=== PATIENT | female | born 1980 | race Caucasian/White ===

== ENCOUNTER 2017-01-30 00:31 | Emergency (ER) | payer BC ==
[2017-01-30 00:44] VITALS: BP 128/81
[2017-01-30] MEDS ORDERED: Bacitracin Oint 1 GM U/D Packet TOP ONE (01:16)
[2017-01-30] MEDS ORDERED: Lidocaine 1% with EPINEPHrine 1:100,000 50 ML MDV SUBCUT STA (01:16)
--- NOTE | 2017-01-30 01:52 | EDM.PDOC ---
ED HPI Skin/Rash - General Chief Complaint: Laceration Stated Complaint: [facility] Time Seen by Provider: 01/30/17 01:15 Source: Reports: Patient, RN notes reviewed History Limitations: Reports: No limitations - History of Present Illness INITIAL COMMENTS - FREE TEXT/NARRATIVE: 36-year-old female presents emergency department today via EMS services she had fallen indication accidentally developed this laceration on her chin no loss of consciousness no other complaints - Related Data Allergies Allergy/AdvReac Type Severity Reaction Status Date / Time Sulfa (Sulfonamide Allergy Hives Verified 01/30/17 00:55 Antibiotics) Home Meds: Ambulatory Orders Medication Instructions Recorded Confirmed ALPRAZolam [Alprazolam] 0.5 mg PO BID PRN 09/01/15 01/30/17 Atenolol 25 mg PO BID 03/13/16 01/30/17 Acetaminophen/Caffeine [Excedrin 2 tab PO QID PRN 04/23/16 01/30/17 Tension Headache] Ibuprofen 600 mg PO ASDIRECTED PRN 10/27/16 01/30/17 Levonorgestrel [Mirena] 1 insert IU ASDIRECTED 10/27/16 01/30/17 clonazePAM [Clonazepam] 1 mg PO BID 10/27/16 01/30/17 Past Medical History HEENT History: Reports: Other (see below) Other HEENT History: Pseudotumor cerebri. MRI completed 01/2016 with negative results. 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: , Other (see below) Other OB/BYN History: Right ovarian cyst with removal, IUD Neurological History: Reports: Migraines Other Neuro History: pseudo tumor Psychiatric History: Reports: Anxiety, Depression, Suicide attempt, Suicidal ideation - Infectious Disease History Infectious Disease History: Reports: Chicken pox - Past Surgical History Cardiovascular Surgical History: Reports: Cardiac Ablation GI Surgical History: Reports: EGD Social & Family History - Family History Cardiac: Reports: Hypertension, Syncope Psychiatric: Reports: Anxiety, Depression Endocrine/Metabolic: Reports: Diabetes, type II Hematologic: Reports: Bleeding disorder - Tobacco Use Smoking Status *Q: Current Every Day Smoker Years of Tobacco use: 20 Packs/Tins Daily: 0.2 Used Tobacco, but Quit: No Second Hand Smoke Exposure: Yes - Caffeine Use Caffeine Use: Reports: None - Alcohol Use Days Per Week of Alcohol Use: 1 Number of Drinks Per Day: 2 Total Drinks Per Week: 2 - Recreational Drug Use Recreational Drug Use: No - Living Situation & Occupation Living situation: Reports: Occupation: employed (Lives with 2 children ages 16 and 14 years. Ex- has custody on weekends. Employed full-time by [employer].) ED ROS GENERAL - Review of Systems Review Of Systems: See Below Constitutional: Reports: no symptoms Skin: Reports: wound ED EXAM, SKIN/RASH Exam: See Below Exam Limited By: No limitations General Appearance: alert, WD/WN, no apparent distress Eye Exam: bilateral eye: normal inspection Ears: normal external exam Nose: normal inspection, normal mucosa, no blood Throat/Mouth: Normal inspection, Normal lips, Normal teeth, Normal gums, Normal oropharynx, Normal voice, No airway compromise Head: normocephalic, facial tenderness, other (2.5 cm laceration on the chin) Neck: normal inspection, supple, non-tender, full range of motion Respiratory/Chest: no respiratory distress ED SKIN PROCEDURES - Laceration/Wound Repair Face Lac/wound length in cm: 2.5 Appearance: subcutaneous, muscle Distal NVT: neuro & vascular intact, no tendon injury Anesthetic type: local Local anesthesia - Lidocaine (Xylocaine): 1% with epi Local anesthetic volume: 2cc Skin prep: saline Saline irrigation (cc's): 30 Exploration/Debridement/Repair: wound explored, in a bloodless field, explored to base Closed with: sutures Suture size: other (5-0) # of sutures: 4 Suture type: nylon, interrupted, simple Suture size: other (5-0) # of sutures: 3 Repaired with: vicryl Course - Vital Signs Last Recorded V/S: Last Vital Signs Temp 95.2 F L 01/30/17 00:42 Pulse 91 01/30/17 00:42 Resp 18 01/30/17 00:42 BP 128/81 01/30/17 00:42 Pulse Ox 96 01/30/17 00:42 - Orders/Labs/Meds Meds: Medications Discontinued Medications Generic Name Dose Route Start Last Admin Trade Name Freq PRN Reason Stop Dose Admin Bacitracin 1 dose 01/30/17 01:16 01/30/17 01:31 Bacitracin Oint 1 Gm TOP 01/30/17 01:17 1 dose ONETIME ONE Administration Lidocaine/Epinephrine 20 ml 01/30/17 01:16 01/30/17 01:31 Xylocaine 1% With Epinephrine 1:100,000 SUBCUT 01/30/17 01:17 20 ml NOW STA Administration Departure - Departure Time of Disposition: 01:51 Disposition: Home, Self-Care 01 Condition: good Clinical Impression: Laceration of chin Qualifiers: Encounter type: initial encounter Qualified Code(s): S01.81XA - Laceration without foreign body of other part of head, initial encounter Forms: ED Department Discharge Additional Instructions: Suture removal in 3-4 days, follow wound care instruction sheet, call return to the emergency department with worsening of symptoms - Assessment/Plan Plan: Assessment Acuity = acute Site and laterality = 2.5 cm laceration chin Etiology = secondary to fall Manifestations = none Location of injury = home Lab values = none Plan Follow wound care instruction sheet, suture removal in 3-4 days Patient was in agreement with the plan all questions were answered, they were instructed to return to the emergency department or call for worsening symptoms. This note was dictated using [employer] voice recognition software please call with any questions.
== END 2017-01-30 02:28 | disposition home or self-care (01) ==
LOC: JP.ED 00:31
DX: S01.81XA Laceration without foreign body of other part of head, initial encounter (principal); E78.00 Pure hypercholesterolemia, unspecified; I10 Essential (primary) hypertension; F41.9 Anxiety disorder, unspecified; F32.9 Major depressive disorder, single episode, unspecified; F17.210 Nicotine dependence, cigarettes, uncomplicated; Z88.2 Allergy status to sulfonamides; W19.XXXA Unspecified fall, initial encounter
CPT/HCPCS: 12011; 99283-25

== ENCOUNTER 2017-03-03 17:18 | Emergency (ER) | payer BC ==
[2017-03-03] MEDS ORDERED: LORazepam 2 MG/ML MDV IVPUSH ONE (17:51)
[2017-03-03] MEDS ORDERED: Sodium Chloride 0.9% 10 ML Syringe FLUSH PRN (17:51)
[2017-03-03] MEDS ORDERED: Ketorolac 30 MG/ML SDV IVPUSH ONE (19:23)
[2017-03-03 19:28] VITALS: BP 149/99
--- NOTE | 2017-03-03 19:33 | EDM.PDOC ---
ED HPI GENERAL MEDICAL PROBLEM - General Chief Complaint: Respiratory Problem Stated Complaint: chest pain sob arm hurts cant feel legs Time Seen by Provider: 03/03/17 18:00 Source of Information: Reports: Patient History Limitations: Reports: No Limitations - History of Present Illness INITIAL COMMENTS - FREE TEXT/NARRATIVE: Radha is a 36 year old female who presents to the ED today with c/o of a panic attack. Patient reports that prior to arrival here her legs gave out on her and she struck her lip. Patient denies any loss of consciousness. Patient reports she used to be on Klonopin for her anxiety but has not been on anything recently. Patient has never been on an anti-depressant for her anxiety. Patient reports that she cannot move her legs but did ambulate to her ED room from triage. Patient denies any current chest pain, patient does report that "it feels like I'm dying". Bilateral Leg Pain Score (Numeric/FACES): 10 - Related Data Allergies Allergy/AdvReac Type Severity Reaction Status Date / Time Sulfa (Sulfonamide Allergy Hives Verified 03/03/17 17:32 Antibiotics) Home Meds: Home Meds ALPRAZolam [Alprazolam] 0.5 mg PO BID PRN 09/01/15 [History] Atenolol 25 mg PO BID 03/13/16 [History] Acetaminophen/Caffeine [Excedrin Tension Headache] 2 tab PO QID PRN 04/23/16 [ History] Ibuprofen 600 mg PO ASDIRECTED PRN 10/27/16 [History] Levonorgestrel [Mirena] 1 insert IU ASDIRECTED 10/27/16 [History] clonazePAM [Clonazepam] 1 mg PO BID 10/27/16 [History] Past Medical History HEENT History: Reports: Other (See Below) Other HEENT History: Pseudotumor cerebri. MRI completed 01/2016 with negative results. 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: Right ovarian cyst with removal, IUD Neurological History: Reports: Migraines Other Neuro History: pseudo tumor Psychiatric History: Reports: Anxiety, Depression, Suicide Attempt, Suicidal Ideation - Infectious Disease History Infectious Disease History: Reports: Chicken Pox - Past Surgical History Cardiovascular Surgical History: Reports: Cardiac Ablation GI Surgical History: Reports: EGD Social & Family History - Family History Cardiac: Reports: Hypertension, Syncope Psychiatric: Reports: Anxiety, Depression Endocrine/Metabolic: Reports: Diabetes, type II Hematologic: Reports: Bleeding Disorder - Tobacco Use Smoking Status *Q: Current Some Day Smoker Years of Tobacco use: 10 Packs/Tins Daily: 0.1 Used Tobacco, but Quit: No Second Hand Smoke Exposure: Yes - Caffeine Use Caffeine Use: Reports: None - Alcohol Use Days Per Week of Alcohol Use: 1 Number of Drinks Per Day: 3 Total Drinks Per Week: 3 - Recreational Drug Use Recreational Drug Use: No - Living Situation & Occupation Living situation: Reports: Occupation: Employed ED ROS GENERAL - Review of Systems Review Of Systems: See Below Constitutional: Reports: No Symptoms HEENT: Reports: No Symptoms Respiratory: Reports: Shortness of Breath Cardiovascular: Reports: No Symptoms Endocrine: Reports: No Symptoms GI/Abdominal: Reports: No Symptoms : Reports: No Symptoms Musculoskeletal: Reports: Other (bilateral leg pain) Skin: Reports: Other (contusion to inner lower lip) Neurological: Reports: Numbness, Tingling Psychiatric: Reports: Anxiety Hematologic/Lymphatic: Reports: No Symptoms Immunologic: Reports: No Symptoms ED EXAM, GENERAL - Physical Exam Exam: See Below Exam Limited By: No Limitations General Appearance: Alert, WD/WN, Anxious Throat/Mouth: Normal Oropharynx, Other (mild swelling and ecchymosis to inner lower lip, no laceration) Neck: Normal Inspection, Supple, Non-Tender Respiratory/Chest: No Respiratory Distress, Lungs Clear, Normal Breath Sounds Cardiovascular: Regular Rate, Rhythm, No Murmur GI/Abdominal: Normal Bowel Sounds, Soft, Non-Tender Extremities: Normal Inspection, Normal Range of Motion, Other (pain with touch, DTR's and movement in tact sensation and cap refill intact bilaterally) Neurological: Alert, Oriented, CN II-XII Intact, Normal Cognition, Normal Gait, Normal Reflexes, No Motor/Sensory Deficits Psychiatric: Anxious Skin Exam: Warm, Dry Lymphatic: No Adenopathy Course - Vital Signs Text/Narrative:: Radha is a 36 year old female who presents to the ED today with c/o panic attack. Patient reports numbness/tingling in her legs, legs gave out and patient struck her lower lip against her teeth. Patient did no sustain any LOC. Patient on exam here is quite anxious, she has a normal exam otherwise. She does have contusion/swelling to inner lower lip. DT was 2 years ago. Patient was given IV Ativan with vast improvement in her symptoms, patient was given Toradol for leg/lip pain with improvement as well, heart rate normalized. I feel that patient would clearly benefit from an anti-depressant for her anxiety. I would like her to see her PCP this week to discuss this. Patient can take Ibuprofen/Tylenol for pain as needed. Reasons to return to the ED were discussed in detail and patient was discharged in stable condition with family driving. Last Recorded V/S: Last Vital Signs Temp 37.3 C 03/03/17 17:28 Pulse 89 03/03/17 19:08 Resp 32 H 03/03/17 17:28 BP 149/99 H 03/03/17 19:08 Pulse Ox 97 03/03/17 19:08 - Orders/Labs/Meds Orders: Active Orders 24 hr Category Date Time Status Peripheral IV Care [RC] . DIRECTED Care 03/03/17 17:51 Active Peripheral IV Insertion Adult [OM.PC] Routine Oth 03/03/17 17:51 Ordered Labs: Laboratory Tests 03/03/17 03/03/17 Range/Units 18:02 18:02 WBC 9.3 (4.5-11.0) K/uL RBC 4.34 (3.30-5.50) M/uL Hgb 15.3 H D (12.0-15.0) g/dL Hct 43.7 (36.0-48.0) % MCV 101 H (80-98) fL MCH 35 H (27-31) pg MCHC 35 (32-36) % Plt Count 275 (150-400) K/uL Neut % (Auto) 73 H (36-66) % Lymph % (Auto) 14 L (24-44) % [place] % (Auto) 11 H (2-6) % Eos % (Auto) 1 L (2-4) % Baso % (Auto) 0 (0-1) % Sodium 140 (140-148) mmol/L Potassium 3.3 L (3.6-5.2) mmol/L Chloride 104 (100-108) mmol/L Carbon Dioxide 27 (21-32) mmol/L Anion Gap 12.3 (5.0-14.0) mmol/L BUN 1 L D (7-18) mg/dL Creatinine 0.9 (0.6-1.0) mg/dL Est Cr Clr Drug Dosing 67.69 mL/min Estimated GFR (MDRD) > 60 (>60) Glucose 113 H (74-106) mg/dL Calcium 8.2 L (8.5-10.1) mg/dL Total Bilirubin 0.4 (0.2-1.0) mg/dL AST 62 H D (15-37) U/L ALT 47 D (12-78) U/L Alkaline Phosphatase 113 (46-116) U/L Total Protein 6.7 (6.4-8.2) g/dL Albumin 2.9 L (3.4-5.0) g/dL Globulin 3.8 H (2.3-3.5) g/dL Albumin/Globulin Ratio 0.8 L (1.2-2.2) Meds: Medications Discontinued Medications Generic Name Dose Route Start Last Admin Trade Name Freq PRN Reason Stop Dose Admin Ketorolac Tromethamine 30 mg 03/03/17 19:23 03/03/17 19:33 Toradol IVPUSH 03/03/17 19:24 30 mg ONETIME ONE Administration Lorazepam 1 mg 03/03/17 17:51 03/03/17 18:06 Ativan IVPUSH 03/03/17 17:52 1 mg ONETIME ONE Administration Sodium Chloride 10 ml 03/03/17 17:51 03/03/17 18:05 Saline Flush FLUSH 10 ml ASDIRECTED PRN Administration Keep Vein Open Departure - Departure Time of Disposition: 20:00 Disposition: Home, Self-Care 01 Condition: good Clinical Impression: Anxiety Contusion, lip Qualifiers: Encounter type: initial encounter Qualified Code(s): S00.531A - Contusion of lip, initial encounter - Discharge Information Instructions: Panic Attacks Referrals: PCP,None [Primary Care Provider] - Forms: ED Department Discharge Additional Instructions: Use Ibuprofen and Tylenol for pain/tiesha bruising, ice as needed. See primary care doctor this week to discuss anxiety please. - My Orders Last 24 Hours: My Active Orders 03/03/17 17:51 Peripheral IV Care [RC] . DIRECTED Peripheral IV Insertion Adult [OM.PC] Routine - Assessment/Plan Last 24 Hours: My Active Orders 03/03/17 17:51 Peripheral IV Care [RC] . DIRECTED Peripheral IV Insertion Adult [OM.PC] Routine
== END 2017-03-03 19:52 | disposition home or self-care (01) ==
LOC: JP.ED 17:18
DX: F41.9 Anxiety disorder, unspecified (principal); S00.531A Contusion of lip, initial encounter; I10 Essential (primary) hypertension; F32.9 Major depressive disorder, single episode, unspecified; F17.210 Nicotine dependence, cigarettes, uncomplicated; Z88.2 Allergy status to sulfonamides; Z79.899 Other long term (current) drug therapy; Z98.890 Other specified postprocedural states
CPT/HCPCS: 36415; 80053; 85025; 96374; 96375; 99284; J1885; J2060; J7050

== ENCOUNTER 2017-03-28 05:06 | Emergency (ER) | payer BC ==
[2017-03-28 05:17] VITALS: BP 155/96
--- NOTE | 2017-03-28 05:58 | EDM.PDOC ---
[id number] Chief Complaint: Drug or Alcohol Abuse Stated Complaint: EVAL Time Seen by Provider: 03/28/17 05:56 - Related Data Allergies Allergy/AdvReac Type Severity Reaction Status Date / Time Sulfa (Sulfonamide Allergy Hives Verified 03/28/17 05:32 Antibiotics) Home Meds: Home Meds ALPRAZolam [Alprazolam] 0.5 mg PO BID PRN 09/01/15 [History] Atenolol 25 mg PO BID 03/13/16 [History] Acetaminophen/Caffeine [Excedrin Tension Headache] 2 tab PO QID PRN 04/23/16 [ History] Ibuprofen 600 mg PO ASDIRECTED PRN 10/27/16 [History] Levonorgestrel [Mirena] 1 insert IU ASDIRECTED 10/27/16 [History] traZODone HCl [Trazodone HCl] 100 mg PO ASDIRECTED 03/28/17 [History] COURSE, BEHAVIORAL HEALTH COMP - Course Vital Signs: Last Vital Signs Temp 36.6 C 03/28/17 05:19 Pulse 97 03/28/17 05:19 Resp 18 03/28/17 05:19 BP 155/96 H 03/28/17 05:19 Pulse Ox 96 03/28/17 05:19 Orders, Labs, Meds: Laboratory Tests 03/28/17 03/28/17 03/28/17 Range/Units 05:59 06:10 06:10 WBC 6.3 (4.5-11.0) K/uL RBC 4.62 (3.30-5.50) M/uL Hgb 16.4 H (12.0-15.0) g/dL Hct 47.8 (36.0-48.0) % MCV 104 H (80-98) fL MCH 36 H (27-31) pg MCHC 34 (32-36) % Plt Count 305 (150-400) K/uL Neut % (Auto) 60 (36-66) % Lymph % (Auto) 26 (24-44) % [place] % (Auto) 12 H (2-6) % Eos % (Auto) 1 L (2-4) % Baso % (Auto) 1 (0-1) % Sodium 143 (140-148) mmol/L Potassium 3.8 (3.6-5.2) mmol/L Chloride 106 (100-108) mmol/L Carbon Dioxide 27 (21-32) mmol/L Anion Gap 10.3 (5.0-14.0) mmol/L BUN 4 L D (7-18) mg/dL Creatinine 0.8 (0.6-1.0) mg/dL Est Cr Clr Drug Dosing 76.15 mL/min Estimated GFR (MDRD) > 60 (>60) Glucose 99 (74-106) mg/dL Calcium 8.4 L (8.5-10.1) mg/dL Total Bilirubin 0.3 (0.2-1.0) mg/dL AST 71 H (15-37) U/L ALT 51 (12-78) U/L Alkaline Phosphatase 98 (46-116) U/L Total Protein 7.1 (6.4-8.2) g/dL Albumin 3.2 L (3.4-5.0) g/dL Globulin 3.9 H (2.3-3.5) g/dL Albumin/Globulin Ratio 0.8 L (1.2-2.2) Urine Color Yellow Urine Appearance Cloudy Urine pH 5.0 (4.5-8.0) Ur Specific Jansen 1.020 (1.008-1.030) Urine Protein Negative (NEGATIVE) mg/dL Urine Glucose (UA) Normal (NEGATIVE) mg/dL Urine Ketones Negative (NEGATIVE) mg/dL Urine Occult Blood Negative (NEGATIVE) Urine Nitrite Negative (NEGATIVE) Urine Bilirubin Negative (NEGATIVE) Urine Urobilinogen Normal (NORMAL) mg/dL Ur Leukocyte Esterase Small (NEGATIVE) Urine RBC 0-5 (0-5) Urine WBC 5-10 H (0-5) Ur Epithelial Cells Many Amorphous Sediment Few Urine Bacteria Many Urine Mucus Not seen Ethyl Alcohol mg/dL 03/28/17 Range/Units 06:10 WBC (4.5-11.0) K/uL RBC (3.30-5.50) M/uL Hgb (12.0-15.0) g/dL Hct (36.0-48.0) % MCV (80-98) fL MCH (27-31) pg MCHC (32-36) % Plt Count (150-400) K/uL Neut % (Auto) (36-66) % Lymph % (Auto) (24-44) % [place] % (Auto) (2-6) % Eos % (Auto) (2-4) % Baso % (Auto) (0-1) % Sodium (140-148) mmol/L Potassium (3.6-5.2) mmol/L Chloride (100-108) mmol/L Carbon Dioxide (21-32) mmol/L Anion Gap (5.0-14.0) mmol/L BUN (7-18) mg/dL Creatinine (0.6-1.0) mg/dL Est Cr Clr Drug Dosing mL/min Estimated GFR (MDRD) (>60) Glucose (74-106) mg/dL Calcium (8.5-10.1) mg/dL Total Bilirubin (0.2-1.0) mg/dL AST (15-37) U/L ALT (12-78) U/L Alkaline Phosphatase (46-116) U/L Total Protein (6.4-8.2) g/dL Albumin (3.4-5.0) g/dL Globulin (2.3-3.5) g/dL Albumin/Globulin Ratio (1.2-2.2) Urine Color Urine Appearance Urine pH (4.5-8.0) Ur Specific Jansen (1.008-1.030) Urine Protein (NEGATIVE) mg/dL Urine Glucose (UA) (NEGATIVE) mg/dL Urine Ketones (NEGATIVE) mg/dL Urine Occult Blood (NEGATIVE) Urine Nitrite (NEGATIVE) Urine Bilirubin (NEGATIVE) Urine Urobilinogen (NORMAL) mg/dL Ur Leukocyte Esterase (NEGATIVE) Urine RBC (0-5) Urine WBC (0-5) Ur Epithelial Cells Amorphous Sediment Urine Bacteria Urine Mucus Ethyl Alcohol 298 mg/dL Medications Discontinued Medications Generic Name Dose Route Start Last Admin Trade Name Freq PRN Reason Stop Dose Admin Sodium Chloride 1,000 mls @ 999 mls/hr 03/28/17 06:00 Normal Saline IV ASDIRECTED SANDRA Sodium Chloride 1,000 mls @ 999 mls/hr 03/28/17 06:15 03/28/17 06:20 Normal Saline IV 999 mls/hr ASDIRECTED SANDRA Administration Sodium Chloride 1,000 mls @ 999 mls/hr 03/28/17 07:15 03/28/17 07:24 Normal Saline IV 999 mls/hr ASDIRECTED SANDRA Administration Lorazepam 0.5 mg 03/28/17 06:58 Ativan IVPUSH 03/28/17 06:59 ONETIME ONE Lorazepam 1 mg 03/28/17 07:36 03/28/17 07:42 Ativan PO 03/28/17 07:37 1 mg ONETIME ONE Administration Re-Assessment/Re-Exam: Patient receiving IV fluids and treatment per Dr. Bell. Labs are reassuring other than alcohol level at 298. Patient still feeling anxious wants to go home, no feelings of self-harm. She was given 1 mg of by mouth Ativan to take one half tablet twice today after being home, if needed. She will return if worsening or concerns. Departure - Departure Time of Disposition: 07:45 Disposition: Home, Self-Care 01 Condition: Fair Clinical Impression: Anxiety, Alcohol abuse - Discharge Information Instructions: Panic Attacks, [id number], Alcohol Intoxication, [id number] Referrals: Paula Payne CNM [Primary Care Provider] - Forms: ED Department Discharge Care Plan Goals: Avoid alcohol in the future. Recheck with your regular physician if your anxiety persists. Return anytime if worsening or concerns. <Lola Zarate - Last Filed: 03/29/17 07:21> ED HPI GENERAL MEDICAL PROBLEM - General Source of Information: Reports: Patient History Limitations: Reports: No Limitations - History of Present Illness INITIAL COMMENTS - FREE TEXT/NARRATIVE: pt arrived intoxicated and feeling like her heart is racing. Onset: Other (pt has been drinking for about 3 days. ) Duration: Day(s): Associated Symptoms: Reports: Other (pt feels like his heart is racing. ) Past Medical History HEENT History: Reports: Other (See Below) Other HEENT History: Pseudotumor cerebri. MRI completed 01/2016 with negative results. 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 with removal, IUD Neurological History: Reports: Migraines Other Neuro History: pseudo tumor Psychiatric History: Reports: Anxiety, Depression, Suicide Attempt, Suicidal Ideation - Infectious Disease History Infectious Disease History: Reports: Chicken Pox - Past Surgical History Cardiovascular Surgical History: Reports: Cardiac Ablation GI Surgical History: Reports: EGD Social & Family History - Family History Cardiac: Reports: Hypertension, Syncope Psychiatric: Reports: Anxiety, Depression Endocrine/Metabolic: Reports: Diabetes, type II Hematologic: Reports: Bleeding Disorder - Tobacco Use Smoking Status *Q: Current Some Day Smoker Years of Tobacco use: 10 Packs/Tins Daily: 0 Used Tobacco, but Quit: No Second Hand Smoke Exposure: Yes - Caffeine Use Caffeine Use: Reports: Soda, Tea - Alcohol Use Days Per Week of Alcohol Use: 0 Number of Drinks Per Day: 3 Total Drinks Per Week: 0 - Recreational Drug Use Recreational Drug Use: No - Living Situation & Occupation Living situation: Reports: Occupation: Employed ED ROS GENERAL - Review of Systems Review Of Systems: See Below Constitutional: Reports: No Symptoms HEENT: Reports: No Symptoms Respiratory: Reports: No Symptoms Cardiovascular: Reports: Palpitations Endocrine: Reports: No Symptoms GI/Abdominal: Reports: No Symptoms : Reports: No Symptoms Musculoskeletal: Reports: No Symptoms Skin: Reports: No Symptoms ED EXAM, BEHAVIORAL HEALTH - Physical Exam Exam: See Below Text/Narrative:: pt arrived with feeling that her heart is racing. She has been drinking for 3 days. She feels nauseated. . Her whole body hurts. Exam Limited By: No Limitations General Appearance: Alert, Anxious Ears: Normal TMs Nose: Normal Inspection Throat/Mouth: Normal Inspection Head: Atraumatic Neck: Normal Inspection Respiratory/Chest: No Respiratory Distress Cardiovascular: Regular Rate, Rhythm, Tachycardia GI/Abdominal: Soft Rectal (Female) Exam: Deferred Back Exam: Normal Inspection Extremities: Normal Inspection Neurological: Alert, Normal Cognition, Oriented x 3 COURSE, BEHAVIORAL HEALTH COMP - Course Medical Clearance: 03/28/17 07:03 ptis having alot of l problems and she is just feeling very sad. 03/28/17 07:09 03/29/17 07:20 pt had a muscle spasm in her neck and ahe was having diarrhea. She was very anxious.
[2017-03-28] MEDS ORDERED: Sodium Chloride 0.9% 1,000 ML IV SCH ×3 (06:00→07:15)
[2017-03-28] MEDS ORDERED: LORazepam 2 MG/ML MDV IVPUSH ONE (06:58)
[2017-03-28] MEDS ORDERED: LORazepam 1 MG Tab PO ONE (07:36)
== END 2017-03-28 07:45 | disposition home or self-care (01) ==
LOC: JP.ED 05:06
DX: F10.10 Alcohol abuse, uncomplicated (principal); Y90.8 Blood alcohol level of 240 mg/100 ml or more; E78.00 Pure hypercholesterolemia, unspecified; I10 Essential (primary) hypertension; G43.909 Migraine, unspecified, not intractable, without status migrainosus; F41.9 Anxiety disorder, unspecified; F32.9 Major depressive disorder, single episode, unspecified; Z79.899 Other long term (current) drug therapy; Z88.2 Allergy status to sulfonamides
CPT/HCPCS: 36415; 80053; 81001; 85025; 93005; 96361; 96374; 99285; A9270; G0480; J7040; J2060

== ENCOUNTER 2017-06-02 20:18 | Emergency (ER) | payer BC ==
[2017-06-02] MEDS ORDERED: Sodium Chloride 0.9% 10 ML Syringe FLUSH PRN (20:54)
[2017-06-02] MEDS ORDERED: Ketorolac 30 MG/ML SDV IVPUSH ONE (20:55)
[2017-06-02] MEDS ORDERED: Sodium Chloride 0.9% 1,000 ML IV SCH ×2 (21:00→22:15)
--- NOTE | 2017-06-02 21:00 | EDM.PDOC ---
ED HPI GENERAL MEDICAL PROBLEM - General Chief Complaint: Cardiovascular Problem Stated Complaint: ILLNESS Time Seen by Provider: 06/02/17 20:50 Source of Information: Reports: Patient History Limitations: Reports: No Limitations - History of Present Illness INITIAL COMMENTS - FREE TEXT/NARRATIVE: Radha is a 36-year-old female with a history of tachycardia who presents to the emergency Department today with complaints of bilateral leg pain, nausea, and rapid heartbeat for the last 2 days. Patient reportedly is on atenolol and was unable to fill this at the pharmacy so was transitioned to metoprolol as atenolol is "missing an ingredient" patient was also started on hydrochlorothiazide on Friday from urgent care as she had left lower extremity swelling. Patient reports she has tried to take ibuprofen for her pain but was nauseated and threw it up. Patient denies any chest pain. Patient also takes Xanax which she reports she ran out of but denies feeling overly anxious at present time. Patient denies feeling short of breath but does report at times it is difficult to take a deep breath. Patient is a smoker, she reports she is trying to quit, she does not smoke every day. Patient denies any recent upper respiratory symptoms, fever, chills or diarrhea. right leg Pain Score (Numeric/FACES): 7 left leg Pain Score (Numeric/FACES): 9 - Related Data Allergies Allergy/AdvReac Type Severity Reaction Status Date / Time duloxetine [From Cymbalta] Allergy Other Verified 06/02/17 20:28 Sulfa (Sulfonamide Allergy Hives Verified 03/28/17 05:32 Antibiotics) Home Meds: Home Meds RX: ALPRAZolam [Alprazolam] 0.5 mg PO BID PRN 09/01/15 [History] RX: Acetaminophen/Caffeine [Excedrin Tension Headache] 2 tab PO QID PRN [History] RX: Ibuprofen 600 mg PO ASDIRECTED PRN 10/27/16 [History] RX: Levonorgestrel [Mirena] 1 insert IU ASDIRECTED 10/27/16 [History] traZODone HCl [Trazodone HCl] 100 mg PO ASDIRECTED 03/28/17 [History] Metoprolol Succinate [Metoprolol Succinate] 50 mg PO BID 06/02/17 [History] RX: busPIRone [Buspar] 10 mg PO TID 06/02/17 [History] Triamterene/Hydrochlorothiazid [Triamterene-HCTZ 37.5-25 MG] 1 each PO DAILY PRN 06/02/17 [History] Past Medical History HEENT History: Reports: Other (See Below) Other HEENT History: Pseudotumor cerebri. MRI completed 01/2016 with negative results. 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 OB/BYN History: Right ovarian cyst with removal, IUD Musculoskeletal History: Reports: None Neurological History: Reports: Migraines Other Neuro History: pseudo tumor Psychiatric History: Reports: Addiction, Anxiety, Depression, Suicide Attempt, Suicidal Ideation, Other (See Below) Other Psychiatric History: alcohol Endocrine/Metabolic History: Reports: None Hematologic History: Reports: None Immunologic History: Reports: None Oncologic (Cancer) History: Reports: None Dermatologic History: Reports: None - Infectious Disease History Infectious Disease History: Reports: Chicken Pox - Past Surgical History Head Surgeries/Procedures: Reports: None HEENT Surgical History: Reports: None Cardiovascular Surgical History: Reports: Cardiac Ablation Respiratory Surgical History: Reports: None GI Surgical History: Reports: EGD Female Surgical History: Reports: None Endocrine Surgical History: Reports: None Neurological Surgical History: Reports: None Musculoskeletal Surgical History: Reports: None Oncologic Surgical History: Reports: None Dermatological Surgical History: Reports: None Social & Family History - Family History Cardiac: Reports: Hypertension, Syncope Psychiatric: Reports: Anxiety, Depression Endocrine/Metabolic: Reports: Diabetes, type II Hematologic: Reports: Bleeding Disorder - Tobacco Use Smoking Status *Q: Light Tobacco Smoker Years of Tobacco use: 25 Packs/Tins Daily: 0.2 Used Tobacco, but Quit: No Second Hand Smoke Exposure: Yes - Caffeine Use Caffeine Use: Reports: None - Alcohol Use Days Per Week of Alcohol Use: 0 Number of Drinks Per Day: 3 Total Drinks Per Week: 0 - Recreational Drug Use Recreational Drug Use: No - Living Situation & Occupation Living situation: Reports: Occupation: Employed ED ROS GENERAL - Review of Systems Review Of Systems: ROS reveals no pertinent complaints other than HPI. ED EXAM, GENERAL - Physical Exam Exam: See Below Exam Limited By: No Limitations General Appearance: Alert, WD/WN, No Apparent Distress, Anxious Throat/Mouth: Normal Oropharynx Head: Atraumatic Neck: Normal Inspection, Supple, Non-Tender Respiratory/Chest: No Respiratory Distress, Lungs Clear Cardiovascular: Normal Peripheral Pulses, No Murmur, Tachycardia GI/Abdominal: Normal Bowel Sounds, Soft, Non-Tender Extremities: Normal Inspection, Normal Range of Motion, Non-Tender, Normal Capillary Refill, Pedal Edema (Mild bilateral). No: Yun's Sign Neurological: Alert, Oriented, CN II-XII Intact Psychiatric: Normal Affect, Normal Mood Skin Exam: Warm, Dry, Intact Lymphatic: No Adenopathy Course - Vital Signs Last Recorded V/S: Last Vital Signs Temp 37.1 C 06/02/17 20:34 Pulse 111 H 06/02/17 21:53 Resp 12 06/02/17 21:53 BP 125/89 06/02/17 21:53 Pulse Ox 94 L 06/02/17 21:53 Radha is a 36-year-old female with a history of tachycardia who presents to the emergency department today with tachycardia, hypertension and bilateral lower extremity pain. Please refer to history of present illness and focused exam. The examination of patient's leg is unremarkable. She is tachycardic here , peripheral IV was established and patient was given a liter of normal saline. Patient was given IV Toradol for her leg pain. Blood work was evaluated including a CBC, CMP and d-dimer. Blood work returns with elevated white count of 18.7 with left shift. UA ordered. Patient denies any urinary symptoms or URI symptoms. HGB stable at 15.6. CMP returns with low sodium of 129, low potassium of 2.9 and low chloride of 92. Remaining CMP returns with elevated calcium of 11.1 and is otherwise within normal limits. D Dimer obtained secondary to report of leg pain with unilateral leg swelling on Friday. Patient is a smoker. D dimer returns modestly elevated. US pending. I discussed blood work with patient, I feel she should come in overnight for sodium and potassium replacement, she is concerned about leaving her kids alone that long. Patient was given one liter of NS and 40 meq po potassium, will give 20 meq IV x 2 doses and recheck electrolyte levels around 0100. Patient can be discharged if levels have improved. Patient's care will be assumed by Officer at 2300. EKG has been ordered and is pending. US is at bedside. - Orders/Labs/Meds Orders: Active Orders 24 hr Category Date Time Status EKG Documentation Completion [RC] ASDIRECTED Care 06/02/17 22:20 Active Peripheral IV Care [RC] . DIRECTED Care 06/02/17 20:54 Active VL Duplex Lwr Ext Veins Comp [US] Stat Exams 06/02/17 21:40 Ordered BASIC METABOLIC PANEL,BMP [CHEM] Timed Lab 06/03/17 01:00 Ordered URINALYSIS W/MICROSCOPIC [UA W/MICROSCOPIC] [URIN] Stat Lab 06/02/17 21:22 Uncollected Sodium Chloride 0.9% [Normal Saline] 1,000 ml Med 06/02/17 21:00 Active IV ASDIRECTED Sodium Chloride 0.9% [Normal Saline] 1,000 ml Med 06/02/17 22:15 Active IV ASDIRECTED Sodium Chloride 0.9% [Saline Flush] Med 06/02/17 20:54 Active 10 ml FLUSH ASDIRECTED PRN Peripheral IV Insertion Adult [OM.PC] Routine Oth 06/02/17 20:54 Ordered EKG 12 Lead [EK] Stat Ther 06/02/17 22:19 Ordered Medication Orders Sodium Chloride (Normal Saline) 1,000 mls @ 999 mls/hr IV ASDIRECTED [facility] Last Admin: 06/02/17 21:09 Dose: 999 mls/hr Sodium Chloride (Normal Saline) 1,000 mls @ 125 mls/hr IV ASDIRECTED [facility] Last Admin: 06/02/17 22:16 Dose: 125 mls/hr Sodium Chloride (Saline Flush) 10 ml FLUSH ASDIRECTED PRN PRN Reason: Keep Vein Open Last Admin: 06/02/17 21:19 Dose: 10 ml Labs: Laboratory Tests 06/02/17 06/02/17 06/02/17 Range/Units 20:55 20:55 20:55 WBC 18.7 H (4.5-11.0) K/uL RBC 4.56 (3.30-5.50) M/uL Hgb 15.6 H (12.0-15.0) g/dL Hct 42.6 (36.0-48.0) % MCV 93 (80-98) fL MCH 34 H (27-31) pg MCHC 37 H (32-36) % Plt Count 254 (150-400) K/uL Neut % (Auto) 83 H (36-66) % Lymph % (Auto) 11 L (24-44) % [place] % (Auto) 5 (2-6) % Eos % (Auto) 1 L (2-4) % Baso % (Auto) 0 (0-1) % D-Dimer, Quantitative 549 H (0.0-400.0) ng/mL Sodium 129 L (140-148) mmol/L Potassium 2.9 L* (3.6-5.2) mmol/L Chloride 92 L (100-108) mmol/L Carbon Dioxide 28 (21-32) mmol/L Anion Gap 11.9 (5.0-14.0) mmol/L BUN 4 L (7-18) mg/dL Creatinine 0.8 (0.6-1.0) mg/dL Est Cr Clr Drug Dosing 76.15 mL/min Estimated GFR (MDRD) > 60 (>60) Glucose 116 H (74-106) mg/dL Calcium 11.1 H D (8.5-10.1) mg/dL Magnesium (1.8-2.4) mg/dL Total Bilirubin 1.1 H D (0.2-1.0) mg/dL AST 31 (15-37) U/L ALT 32 (12-78) U/L Alkaline Phosphatase 83 (46-116) U/L Total Protein 8.2 (6.4-8.2) g/dL Albumin 3.8 (3.4-5.0) g/dL Globulin 4.4 H (2.3-3.5) g/dL Albumin/Globulin Ratio 0.9 L (1.2-2.2) 06/02/17 Range/Units 22:25 WBC (4.5-11.0) K/uL RBC (3.30-5.50) M/uL Hgb (12.0-15.0) g/dL Hct (36.0-48.0) % MCV (80-98) fL MCH (27-31) pg MCHC (32-36) % Plt Count (150-400) K/uL Neut % (Auto) (36-66) % Lymph % (Auto) (24-44) % [place] % (Auto) (2-6) % Eos % (Auto) (2-4) % Baso % (Auto) (0-1) % D-Dimer, Quantitative (0.0-400.0) ng/mL Sodium (140-148) mmol/L Potassium (3.6-5.2) mmol/L Chloride (100-108) mmol/L Carbon Dioxide (21-32) mmol/L Anion Gap (5.0-14.0) mmol/L BUN (7-18) mg/dL Creatinine (0.6-1.0) mg/dL Est Cr Clr Drug Dosing mL/min Estimated GFR (MDRD) (>60) Glucose (74-106) mg/dL Calcium (8.5-10.1) mg/dL Magnesium 1.2 L (1.8-2.4) mg/dL Total Bilirubin (0.2-1.0) mg/dL AST (15-37) U/L ALT (12-78) U/L Alkaline Phosphatase (46-116) U/L Total Protein (6.4-8.2) g/dL Albumin (3.4-5.0) g/dL Globulin (2.3-3.5) g/dL Albumin/Globulin Ratio (1.2-2.2) Meds: Medications Generic Name Dose Route Start Last Admin Trade Name Freq PRN Reason Stop Dose Admin Sodium Chloride 1,000 mls @ 999 mls/hr 06/02/17 21:00 06/02/17 21:09 Normal Saline IV 999 mls/hr ASDIRECTED SANDRA Administration Sodium Chloride 1,000 mls @ 125 mls/hr 06/02/17 22:15 06/02/17 22:16 Normal Saline IV 125 mls/hr ASDIRECTED SANDRA Administration Sodium Chloride 10 ml 06/02/17 20:54 06/02/17 21:19 Saline Flush FLUSH 10 ml ASDIRECTED PRN Administration Keep Vein Open Discontinued Medications Generic Name Dose Route Start Last Admin Trade Name Freq PRN Reason Stop Dose Admin Calcium Carbonate/Glycine 1,000 mg 06/02/17 22:20 Tums PO 06/02/17 22:21 ONETIME ONE Potassium Chloride 20 meq/ 112 mls @ 50 mls/hr 06/02/17 21:45 Lidocaine HCl 2 ml/ Sodium IV Chloride Q2H SANDRA Potassium Chloride Confirm 06/02/17 22:19 06/02/17 22:30 Kcl 20 Meq In Water 100 Ml Administered 06/02/17 22:20 Not Given Dose 100 mls @ as directed .ROUTE .STK-MED ONE Potassium Chloride 20 meq/ 0 mls @ 50 mls/hr 06/02/17 22:23 06/02/17 22:39 Premix IV 06/02/17 22:24 50 mls/hr ONETIME ONE Administration Ketorolac Tromethamine 30 mg 06/02/17 20:55 06/02/17 21:15 Toradol IVPUSH 06/02/17 20:56 30 mg ONETIME ONE Administration Lidocaine HCl Confirm 06/02/17 22:20 06/02/17 22:30 Xylocaine-Mpf 1% Administered 06/02/17 22:21 Not Given Dose 5 ml .ROUTE .STK-MED ONE Lidocaine HCl 2 ml 06/02/17 22:28 06/02/17 22:40 Xylocaine-Mpf 1% INJECT 06/02/17 22:29 2 ml ONETIME ONE Administration Potassium Chloride 40 meq 06/02/17 21:36 06/02/17 21:58 Klor-Con M20 PO 06/02/17 21:37 40 meq ONETIME ONE Administration Departure - Departure Time of Disposition: 01:30 Disposition: Still A Patient 30 Condition: Good Clinical Impression: Hypokalemia, Hyponatremia, Leg pain, bilateral, Tachycardia Referrals: PCP,None [Primary Care Provider] - Forms: ED Department Discharge - My Orders Last 24 Hours: My Active Orders 06/02/17 20:54 Peripheral IV Care [RC] . DIRECTED Sodium Chloride 0.9% [Saline Flush] 10 ml FLUSH ASDIRECTED PRN Peripheral IV Insertion Adult [OM.PC] Routine 06/02/17 21:00 Sodium Chloride 0.9% [Normal Saline] 1,000 ml IV ASDIRECTED 06/02/17 21:22 URINALYSIS W/MICROSCOPIC [UA W/MICROSCOPIC] [URIN] Stat 06/02/17 21:40 VL Duplex Lwr Ext Veins Comp [US] Stat 06/02/17 22:15 Sodium Chloride 0.9% [Normal Saline] 1,000 ml IV ASDIRECTED 06/02/17 22:19 EKG 12 Lead [EK] Stat 06/02/17 22:20 EKG Documentation Completion [RC] ASDIRECTED 06/03/17 01:00 BASIC METABOLIC PANEL,BMP [CHEM] Timed - Assessment/Plan Last 24 Hours: My Active Orders 06/02/17 20:54 Peripheral IV Care [RC] . DIRECTED Sodium Chloride 0.9% [Saline Flush] 10 ml FLUSH ASDIRECTED PRN Peripheral IV Insertion Adult [OM.PC] Routine 06/02/17 21:00 Sodium Chloride 0.9% [Normal Saline] 1,000 ml IV ASDIRECTED 06/02/17 21:22 URINALYSIS W/MICROSCOPIC [UA W/MICROSCOPIC] [URIN] Stat 06/02/17 21:40 VL Duplex Lwr Ext Veins Comp [US] Stat 06/02/17 22:15 Sodium Chloride 0.9% [Normal Saline] 1,000 ml IV ASDIRECTED 06/02/17 22:19 EKG 12 Lead [EK] Stat 06/02/17 22:20 EKG Documentation Completion [RC] ASDIRECTED 06/03/17 01:00 BASIC METABOLIC PANEL,BMP [CHEM] Timed
[2017-06-02] MEDS ORDERED: Potassium Chloride 20 MEQ Tab.ER PO ONE (21:36)
[2017-06-02] MEDS ORDERED: Potassium Chloride 20 MEQ, Lidocaine 1% 2 ML in Sodium Chloride 0.9% 100 ML IV SCH (21:45)
[2017-06-02] MEDS ORDERED: Potassium Chloride 100 ML ONE (22:19)
[2017-06-02] MEDS ORDERED: Calcium Carbonate 500 MG Tab.Chew PO ONE (22:20)
[2017-06-02] MEDS ORDERED: Potassium Chloride 20 MEQ in Premix Bag 1 BAG IV ONE (22:23)
[2017-06-02] MEDS ORDERED: HYDROmorphone 1 MG/ML Syringe IVPUSH ONE (23:44)
[2017-06-03] MEDS ORDERED: Rivaroxaban 15 MG Tab PO STA (00:27)
[2017-06-03 00:42] VITALS: BP 123/72
--- NOTE | 2017-06-03 14:29 | US ---
VL Duplex Lwr Ext Veins Comp HISTORY: No Clinical Info FINDINGS: Ultrasound examination of bilateral lower extremities using Doppler and compressive techniq ue demonstrates that the right and left common femoral, femoral, and popliteal veins are patent and n egative for thrombus. The right calf veins were segmentally visualized and are negative where seen. T hrombus within the left peroneal veins. IMPRESSION: Acute DVT left lower extremity in the left peroneal veins..
== END 2017-06-03 01:57 | disposition home or self-care (01) ==
LOC: JP.ED 20:18
DX: E87.6 Hypokalemia (principal); E87.1 Hypo-osmolality and hyponatremia; R00.0 Tachycardia, unspecified; M79.604 Pain in right leg; M79.605 Pain in left leg; I82.492 Acute embolism and thrombosis of other specified deep vein of left lower extremity; I10 Essential (primary) hypertension; E78.00 Pure hypercholesterolemia, unspecified; G20 Parkinson's disease; F41.9 Anxiety disorder, unspecified; F32.9 Major depressive disorder, single episode, unspecified; F17.210 Nicotine dependence, cigarettes, uncomplicated; Z88.2 Allergy status to sulfonamides; Z88.8 Allergy status to other drugs, medicaments and biological substances; Z79.899 Other long term (current) drug therapy; Z98.890 Other specified postprocedural states
CPT/HCPCS: 36415; 80048; 80053; 81001; 83735; 85025; 85379; 93005; 93970; 96361; 96374; 96375; 99285; A9270; J1170; J1885; J3480; J7040; J7050

== ENCOUNTER 2017-06-13 15:54 | Emergency (ER) | payer BC ==
[2017-06-13 16:16] VITALS: BP 135/88
--- NOTE | 2017-06-13 16:38 | EDM.PDOC ---
ED HPI GENERAL MEDICAL PROBLEM - General Chief Complaint: General Stated Complaint: BLOOD CLOT/CAME FROM CLINIC Time Seen by Provider: 06/13/17 16:06 Source of Information: Reports: Patient, Family, Old Records, RN Notes Reviewed History Limitations: Reports: No Limitations - History of Present Illness INITIAL COMMENTS - FREE TEXT/NARRATIVE: 36-year-old female presents emergency department today concerned about increased leg edema and increased pain, she was evaluated in the emergency department on June 02 found to have a deep vein thrombosis started on Xarelto , she states she's been taking the medication regularly as prescribed however she feels she is developed more edema in her left lower extremity and ibuprofen is not helping with the pain. She had reported to clinic to have her electrolytes followed up however was sent from clinic to the emergency department for further evaluation due to the complaint of increased leg swelling left leg Pain Score (Numeric/FACES): 8 - Related Data Allergies Allergy/AdvReac Type Severity Reaction Status Date / Time duloxetine [From Cymbalta] Allergy Other Verified 06/13/17 16:08 Sulfa (Sulfonamide Allergy Hives Verified 06/13/17 16:08 Antibiotics) Home Meds: Home Meds ALPRAZolam [Alprazolam] 0.5 mg PO BID PRN 09/01/15 [History] Acetaminophen/Caffeine [Excedrin Tension Headache] 2 tab PO QID PRN 04/23/16 [ History] Ibuprofen 600 mg PO ASDIRECTED PRN 10/27/16 [History] Levonorgestrel [Mirena] 1 insert IU ASDIRECTED 10/27/16 [History] traZODone HCl [Trazodone HCl] 100 mg PO ASDIRECTED 03/28/17 [History] Metoprolol Succinate [Metoprolol Succinate] 50 mg PO DAILY 06/02/17 [History] busPIRone [Buspar] 10 mg PO TID 06/02/17 [History] Rivaroxaban [Xarelto] 10 mg PO BID 06/13/17 [History] Past Medical History HEENT History: Reports: Other (See Below) Other HEENT History: Pseudotumor cerebri. MRI completed 01/2016 with negative results. 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/BYN History: Right ovarian cyst with removal, IUD Neurological History: Reports: Migraines Other Neuro History: pseudo tumor Psychiatric History: Reports: Addiction, Anxiety, Depression, Other (See Below) Other Psychiatric History: alcohol - Infectious Disease History Infectious Disease History: Reports: Chicken Pox - Past Surgical History Head Surgeries/Procedures: Reports: None HEENT Surgical History: Reports: None Cardiovascular Surgical History: Reports: Cardiac Ablation Respiratory Surgical History: Reports: None GI Surgical History: Reports: EGD Female Surgical History: Reports: None Endocrine Surgical History: Reports: None Neurological Surgical History: Reports: None Musculoskeletal Surgical History: Reports: None Oncologic Surgical History: Reports: None Dermatological Surgical History: Reports: None Social & Family History - Family History Cardiac: Reports: Hypertension, Syncope Psychiatric: Reports: Anxiety, Depression Endocrine/Metabolic: Reports: Diabetes, type II Hematologic: Reports: Bleeding Disorder - Tobacco Use Smoking Status *Q: Current Every Day Smoker Years of Tobacco use: 10 Packs/Tins Daily: 0.5 Used Tobacco, but Quit: No Second Hand Smoke Exposure: Yes - Caffeine Use Caffeine Use: Reports: None - Alcohol Use Days Per Week of Alcohol Use: 0 Number of Drinks Per Day: 3 Total Drinks Per Week: 0 - Recreational Drug Use Recreational Drug Use: No - Living Situation & Occupation Living situation: Reports: Occupation: Employed ED ROS GENERAL - Review of Systems Review Of Systems: See Below Constitutional: Reports: No Symptoms Respiratory: Reports: No Symptoms Cardiovascular: Reports: No Symptoms GI/Abdominal: Reports: No Symptoms Musculoskeletal: Reports: Leg Pain ED EXAM, GENERAL - Physical Exam Exam: See Below Free Text/Narrative:: Examination of the left lower extremity I don't appreciate any edema in the calf slight bit of pedal edema appreciated on the left side pedal pulse is +2 measurement of the calf 10 cm down from the patella reveals 14.5 inches on the right and 14-5/8 inches on the left Exam Limited By: No Limitations General Appearance: Alert, WD/WN, No Apparent Distress Respiratory/Chest: No Respiratory Distress Course - Vital Signs Last Recorded V/S: Last Vital Signs Temp 97.9 F 06/13/17 16:15 Pulse 90 06/13/17 16:15 Resp 12 06/13/17 16:15 BP 135/88 06/13/17 16:15 Pulse Ox 98 06/13/17 16:15 - Orders/Labs/Meds Labs: Laboratory Tests 06/13/17 Range/Units 16:33 Sodium 142 (140-148) mmol/L Potassium 3.8 (3.6-5.2) mmol/L Chloride 108 (100-108) mmol/L Carbon Dioxide 28 (21-32) mmol/L Anion Gap 6.4 (5.0-14.0) mmol/L BUN 6 L (7-18) mg/dL Creatinine 1.1 H (0.6-1.0) mg/dL Est Cr Clr Drug Dosing 55.38 mL/min Estimated GFR (MDRD) 56 L (>60) Glucose 88 (74-106) mg/dL Calcium 8.8 (8.5-10.1) mg/dL Departure - Departure Time of Disposition: 17:22 Disposition: Home, Self-Care 01 Condition: Good Clinical Impression: Deep venous thrombosis (DVT) of left peroneal vein - Discharge Information Referrals: Paula Payne CNM [Primary Care Provider] - Forms: ED Department Discharge Additional Instructions: Use hydrocodone as needed for pain control, Please followup with your primary care provider in 3-5 days, please call return to the emergency department with worsening of symptoms. - Assessment/Plan Plan: Assessment Acuity = acute Site and laterality = DVT left peroneal vein Etiology = unknown etiology Manifestations = leg edema Location of injury = Home Lab values = creatinine elevated 1.1 consistent chronic renal failure stage GIII a Plan I did review lab work with her provide her hydrocodone for pain control use as needed 02/05/25 one tab by mouth every 6 hours when necessary Patient was in agreement with the plan all questions were answered, they were instructed to return to the emergency department or call for worsening symptoms. This note was dictated using [employer] voice recognition software please call with any questions.
== END 2017-06-13 17:33 | disposition home or self-care (01) ==
LOC: JP.ED 15:54
DX: I82.492 Acute embolism and thrombosis of other specified deep vein of left lower extremity (principal); F17.210 Nicotine dependence, cigarettes, uncomplicated; E78.00 Pure hypercholesterolemia, unspecified; I10 Essential (primary) hypertension; G43.909 Migraine, unspecified, not intractable, without status migrainosus; F41.9 Anxiety disorder, unspecified; F32.9 Major depressive disorder, single episode, unspecified; Z98.890 Other specified postprocedural states; Z79.899 Other long term (current) drug therapy; Z88.2 Allergy status to sulfonamides; Z88.8 Allergy status to other drugs, medicaments and biological substances
CPT/HCPCS: 36415; 80048; 99284

== ENCOUNTER 2017-07-14 08:18 | Emergency (ER) | payer BC ==
[2017-07-14] MEDS ORDERED: Aspirin 81 MG Tab.Chew PO ONE (08:54)
--- NOTE | 2017-07-14 09:00 | EDM.PDOC ---
ED HPI GENERAL MEDICAL PROBLEM - General Chief Complaint: Cardiovascular Problem Stated Complaint: PAIN CHEST AND HEART IS POUNDING Time Seen by Provider: 07/14/17 08:43 Source of Information: Reports: Patient, RN Notes Reviewed History Limitations: Reports: No Limitations - History of Present Illness INITIAL COMMENTS - FREE TEXT/NARRATIVE: 36-year-old female presents emergency department day complaint of chest pain and shortness of breath, she states is been ongoing for a week or so is progressively getting worse she has shortness of breath on exertion does have a known history of DVT is currently on xeralto, has been doing well with the medication recently change the dosing from twice a day to daily 20 mg she states over the last week she's developed symptoms as well as some chest pain with pain shooting up into the neck on the right side sore throat, she has not followed with her primary care provider was last seen in the emergency department about 2 weeks ago for her DVT Chest Pain Score (Numeric/FACES): 3 - Related Data Allergies Allergy/AdvReac Type Severity Reaction Status Date / Time duloxetine [From Cymbalta] Allergy Other Verified 07/14/17 08:33 Sulfa (Sulfonamide Allergy Hives Verified 07/14/17 08:33 Antibiotics) Home Meds: Home Meds ALPRAZolam [Alprazolam] 0.5 mg PO TID 09/01/15 [History] traZODone HCl [Trazodone HCl] 100 mg PO BEDTIME 03/28/17 [History] Metoprolol Succinate [Metoprolol Succinate] 50 mg PO DAILY 06/02/17 [History] busPIRone [Buspar] 10 mg PO TID 06/02/17 [History] Rivaroxaban [Xarelto] 20 mg PO DAILY 06/13/17 [History] Past Medical History HEENT History: Reports: Other (See Below) Other HEENT History: Pseudotumor cerebri. MRI completed 01/2016 with negative results. 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 OB/BYN History: Right ovarian cyst with removal, IUD Neurological History: Reports: Migraines Other Neuro History: pseudo tumor Psychiatric History: Reports: Addiction, Anxiety, Depression, Other (See Below) Other Psychiatric History: alcohol - Infectious Disease History Infectious Disease History: Reports: Chicken Pox - Past Surgical History Cardiovascular Surgical History: Reports: Cardiac Ablation GI Surgical History: Reports: EGD Neurological Surgical History: Reports: None Social & Family History - Family History Cardiac: Reports: Hypertension, Syncope Psychiatric: Reports: Anxiety, Depression Endocrine/Metabolic: Reports: Diabetes, type II Hematologic: Reports: Bleeding Disorder - Tobacco Use Smoking Status *Q: Current Status Unknown Years of Tobacco use: 10 Packs/Tins Daily: 0.5 Used Tobacco, but Quit: No Second Hand Smoke Exposure: Yes - Caffeine Use Caffeine Use: Reports: None - Alcohol Use Days Per Week of Alcohol Use: 0 Number of Drinks Per Day: 3 Total Drinks Per Week: 0 - Recreational Drug Use Recreational Drug Use: No - Living Situation & Occupation Living situation: Reports: Occupation: Employed ED ROS GENERAL - Review of Systems Review Of Systems: See Below Constitutional: Reports: Fever ([place] feverish at home) HEENT: Reports: Throat Swelling Respiratory: Reports: Shortness of Breath. Denies: Cough, Sputum Cardiovascular: Reports: Chest Pain, Dyspnea on Exertion, Palpitations GI/Abdominal: Reports: No Symptoms : Reports: No Symptoms Musculoskeletal: Reports: No Symptoms Skin: Reports: No Symptoms Neurological: Reports: No Symptoms Psychiatric: Reports: Anxiety ED EXAM, GENERAL - Physical Exam Exam: See Below Free Text/Narrative:: General: Female, mildly anxious but not in distress, alert and oriented x3 HEENT : head is atraumatic normocephalic, eyes pupils equal round reactive to light, sclera clear no conjunctivitis appreciated. Ears tympanic membranes clear and ramirez landmarks and light reflex are present bilaterally canals are clear. Nose no septal deviation, nares are clear, no blood present. Mouth mucosa is moist and pink no erythema or exudate noted in soft palate, tongue is midline uvula is midline, dentition is intact. Neck: Supple no thyromegaly no tracheal deviation. Nodes: Cervical nodes subclavicular nodes nontender no palpable lymphadenopathy noted. Lungs: clear to auscultation bilaterally with symmetrical respirations, no adventitious noise appreciated. CV: Regular rate and rhythm S1 and S2 appreciated no murmurs rubs or gallops noted. Abdomen: Soft, nontender, no palpable masses or organomegaly appreciated, no distention no guarding bowel sounds are present, . Neuro: Cranial nerves II through XII grossly intact Skin: Warm and dry, intact Extremities: No lower extremity edema appreciated, pedal pulse is +2. Course - Vital Signs Last Recorded V/S: Last Vital Signs Temp 97.2 F 07/14/17 08:28 Pulse 98 07/14/17 10:16 Resp 18 07/14/17 10:16 BP 149/106 H 07/14/17 10:16 Pulse Ox 97 07/14/17 10:16 - Orders/Labs/Meds Orders: Active Orders 24 hr Category Date Time Status Cardiac Monitoring [RC] .As Directed Care 07/14/17 08:54 Active EKG Documentation Completion [RC] ASDIRECTED Care 07/14/17 08:55 Active EKG 12 Lead [EK] Stat Ther 07/14/17 08:55 Ordered Labs: Laboratory Tests 07/14/17 07/14/17 07/14/17 Range/Units 08:54 08:54 08:54 WBC 7.3 (4.5-11.0) K/uL RBC 4.71 (3.30-5.50) M/uL Hgb 15.4 H (12.0-15.0) g/dL Hct 44.1 (36.0-48.0) % MCV 94 (80-98) fL MCH 33 H (27-31) pg MCHC 35 (32-36) % Plt Count 258 (150-400) K/uL Neut % (Auto) 64 (36-66) % Lymph % (Auto) 23 L (24-44) % [place] % (Auto) 11 H (2-6) % Eos % (Auto) 2 (2-4) % Baso % (Auto) 0 (0-1) % D-Dimer, Quantitative (0.0-400.0) ng/mL Sodium 140 (140-148) mmol/L Potassium 3.5 L (3.6-5.2) mmol/L Chloride 102 (100-108) mmol/L Carbon Dioxide 31 (21-32) mmol/L Anion Gap 10.5 (5.0-14.0) mmol/L BUN 7 (7-18) mg/dL Creatinine 0.8 (0.6-1.0) mg/dL Est Cr Clr Drug Dosing 76.15 mL/min Estimated GFR (MDRD) > 60 (>60) Glucose 89 (74-106) mg/dL Lactic Acid 1.7 (0.4-2.0) mmol/L Calcium 8.4 L (8.5-10.1) mg/dL Total Bilirubin 0.4 D (0.2-1.0) mg/dL AST 31 (15-37) U/L ALT 27 (12-78) U/L Alkaline Phosphatase 66 (46-116) U/L Troponin I < 0.017 (0.000-0.056) ng/mL Total Protein 7.5 (6.4-8.2) g/dL Albumin 4.0 (3.4-5.0) g/dL Globulin 3.5 (2.3-3.5) g/dL Albumin/Globulin Ratio 1.1 L (1.2-2.2) Urine Color Urine Appearance Urine pH (4.5-8.0) Ur Specific [place] (1.008-1.030) Urine Protein (NEGATIVE) mg/dL Urine Glucose (UA) (NEGATIVE) mg/dL Urine Ketones (NEGATIVE) mg/dL Urine Occult Blood (NEGATIVE) Urine Nitrite (NEGATIVE) Urine Bilirubin (NEGATIVE) Urine Urobilinogen (NORMAL) mg/dL Ur Leukocyte Esterase (NEGATIVE) Urine RBC (0-5) Urine WBC (0-5) Ur Epithelial Cells Amorphous Sediment Urine Bacteria Urine Mucus 07/14/17 07/14/17 Range/Units 08:56 09:07 WBC (4.5-11.0) K/uL RBC (3.30-5.50) M/uL Hgb (12.0-15.0) g/dL Hct (36.0-48.0) % MCV (80-98) fL MCH (27-31) pg MCHC (32-36) % Plt Count (150-400) K/uL Neut % (Auto) (36-66) % Lymph % (Auto) (24-44) % [place] % (Auto) (2-6) % Eos % (Auto) (2-4) % Baso % (Auto) (0-1) % D-Dimer, Quantitative 426 H (0.0-400.0) ng/mL Sodium (140-148) mmol/L Potassium (3.6-5.2) mmol/L Chloride (100-108) mmol/L Carbon Dioxide (21-32) mmol/L Anion Gap (5.0-14.0) mmol/L BUN (7-18) mg/dL Creatinine (0.6-1.0) mg/dL Est Cr Clr Drug Dosing mL/min Estimated GFR (MDRD) (>60) Glucose (74-106) mg/dL Lactic Acid (0.4-2.0) mmol/L Calcium (8.5-10.1) mg/dL Total Bilirubin (0.2-1.0) mg/dL AST (15-37) U/L ALT (12-78) U/L Alkaline Phosphatase (46-116) U/L Troponin I (0.000-0.056) ng/mL Total Protein (6.4-8.2) g/dL Albumin (3.4-5.0) g/dL Globulin (2.3-3.5) g/dL Albumin/Globulin Ratio (1.2-2.2) Urine Color Yellow Urine Appearance Slightly cloudy Urine pH 6.0 (4.5-8.0) Ur Specific [place] 1.010 (1.008-1.030) Urine Protein Negative (NEGATIVE) mg/dL Urine Glucose (UA) Normal (NEGATIVE) mg/dL Urine Ketones Negative (NEGATIVE) mg/dL Urine Occult Blood Trace (NEGATIVE) Urine Nitrite Negative (NEGATIVE) Urine Bilirubin Negative (NEGATIVE) Urine Urobilinogen Normal (NORMAL) mg/dL Ur Leukocyte Esterase Negative (NEGATIVE) Urine RBC Not seen (0-5) Urine WBC 0-5 (0-5) Ur Epithelial Cells Moderate Amorphous Sediment Rare Urine Bacteria Rare Urine Mucus Not seen Meds: Medications Discontinued Medications Generic Name Dose Route Start Last Admin Trade Name Freq PRN Reason Stop Dose Admin Aspirin 324 mg 07/14/17 08:54 07/14/17 09:06 Aspirin PO 07/14/17 08:55 324 mg ONETIME ONE Administration Departure - Departure Time of Disposition: 11:37 Disposition: Home, Self-Care 01 Condition: Good Clinical Impression: Tachycardia Referrals: Paula Payne CNM [Primary Care Provider] - Forms: ED Department Discharge Additional Instructions: please follow-up with your primary care provider for a referral with cardiology for further evaluation of the tachycardia, call return to the emergency department worsening of symptoms - My Orders Last 24 Hours: My Active Orders 07/14/17 08:54 Cardiac Monitoring [RC] .As Directed 07/14/17 08:55 EKG Documentation Completion [RC] ASDIRECTED EKG 12 Lead [EK] Stat - Assessment/Plan Last 24 Hours: My Active Orders 07/14/17 08:54 Cardiac Monitoring [RC] .As Directed 07/14/17 08:55 EKG Documentation Completion [RC] ASDIRECTED EKG 12 Lead [EK] Stat Plan: Assessment Acuity = acute Site and laterality = tachycardia complicated patient with history of pseudotumor cerebri and history of [id number] as well as underlying anxiety Etiology = unclear etiology Manifestations = palpitations, chest pain Location of injury = Home Lab values = CBC unremarkable potassium low at 3.5 consistent hypokalemia d- dimer unremarkable EKG demonstrates sinus tachycardia this is similar to EKG prior in May 2017 Plan I did review lab work with her as well as etiology of tachycardia I'm recommending a follow-up with cardiology for further evaluation of the tachycardia this is been going on for now for a year and one half she would like to set this appointment up herself Patient was in agreement with the plan all questions were answered, they were instructed to return to the emergency department or call for worsening symptoms. This note was dictated using [employer] voice recognition software please call with any questions.
[2017-07-14 10:26] VITALS: BP 149/106
--- NOTE | 2017-07-14 10:29 | CR ---
Chest 2V FINDINGS: The heart and vascular structures are normal in appearance. No infiltrates or effusions are demonstrated. The skeletal structures are unremarkable. IMPRESSION: Negative exam.
== END 2017-07-14 12:02 | disposition home or self-care (01) ==
LOC: JP.ED 08:18
DX: R00.0 Tachycardia, unspecified (principal); I10 Essential (primary) hypertension; E78.00 Pure hypercholesterolemia, unspecified; F32.9 Major depressive disorder, single episode, unspecified; F41.9 Anxiety disorder, unspecified; G20 Parkinson's disease; Z98.890 Other specified postprocedural states; Z86.718 Personal history of other venous thrombosis and embolism; Z88.2 Allergy status to sulfonamides; Z88.8 Allergy status to other drugs, medicaments and biological substances
CPT/HCPCS: 36415; 71020; 80053; 81001; 83605; 84484; 85025; 85379; 93005; 99285; A9270

== ENCOUNTER 2017-11-10 12:55 | Emergency (ER) | payer BC ==
[2017-11-10] MEDS ORDERED: Tetracaine HCl/PF 0.5% 4 ML Bottle EYERT ONE (13:57)
--- NOTE | 2017-11-10 14:29 | EDM.PDOC ---
ED HPI GENERAL MEDICAL PROBLEM - General Chief Complaint: Skin Complaint Stated Complaint: RASH VIA NORTH Time Seen by Provider: 11/10/17 14:24 Source of Information: Reports: Patient, EMS History Limitations: Reports: No Limitations - History of Present Illness INITIAL COMMENTS - FREE TEXT/NARRATIVE: pt arrived with pain in the rt eye and she has a rash which itches all over. Onset: Gradual, Other (Pt has had the rash for about 2 weeks. ) Duration: Hour(s):, Other ( The pt is itching. ) Location: Reports: Generalized, Other ( This does not involve his face. ) Associated Symptoms: Reports: Rash, Other (anxiety) Chest Pain Score (Numeric/FACES): 8 - Related Data Allergies Allergy/AdvReac Type Severity Reaction Status Date / Time duloxetine [From Cymbalta] Allergy Other Verified 11/10/17 13:14 Sulfa (Sulfonamide Allergy Hives Verified 11/10/17 13:14 Antibiotics) Home Meds: Home Meds ALPRAZolam [Alprazolam] 0.5 mg PO TID 09/01/15 [History] Metoprolol Succinate [Metoprolol Succinate] 50 mg PO DAILY 06/02/17 [History] busPIRone [Buspar] 10 mg PO TID 06/02/17 [History] Rivaroxaban [Xarelto] 20 mg PO DAILY 06/13/17 [History] Past Medical History HEENT History: Reports: Other (See Below) Other HEENT History: Pseudotumor cerebri. MRI completed 01/2016 with negative results. 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 History: Right ovarian cyst with removal, IUD Neurological History: Reports: Migraines Other Neuro History: pseudo tumor Psychiatric History: Reports: Addiction, Anxiety, Depression, Other (See Below) Other Psychiatric History: alcohol Hematologic History: Reports: Anticoagulation Therapy - Infectious Disease History Infectious Disease History: Reports: Chicken Pox - Past Surgical History Cardiovascular Surgical History: Reports: Cardiac Ablation GI Surgical History: Reports: EGD Social & Family History - Family History Cardiac: Reports: Hypertension, Syncope Psychiatric: Reports: Anxiety, Depression Endocrine/Metabolic: Reports: Diabetes, type II Hematologic: Reports: Bleeding Disorder - Tobacco Use Smoking Status *Q: Current Some Day Smoker Years of Tobacco use: 15 Packs/Tins Daily: 0 Used Tobacco, but Quit: No Second Hand Smoke Exposure: Yes - Caffeine Use Caffeine Use: Reports: None - Alcohol Use Days Per Week of Alcohol Use: 0 Number of Drinks Per Day: 3 Total Drinks Per Week: 0 - Recreational Drug Use Recreational Drug Use: No - Living Situation & Occupation Living situation: Reports: Occupation: Employed ED ROS GENERAL - Review of Systems Review Of Systems: See Below Constitutional: Reports: No Symptoms HEENT: Reports: No Symptoms Respiratory: Reports: No Symptoms Cardiovascular: Reports: No Symptoms Endocrine: Reports: No Symptoms GI/Abdominal: Reports: No Symptoms : Reports: No Symptoms Musculoskeletal: Reports: No Symptoms Skin: Reports: Rash Neurological: Reports: No Symptoms Psychiatric: Reports: Agitation, Anxiety ED EXAM, SKIN/RASH Exam: See Below Text/Narrative:: Pt arrived very anxious and complaining of total body itching. She has had a rash for about 2 weeks. She has trmendous itching. She also has a irritated rt eye. Exam Limited By: No Limitations General Appearance: Alert, Anxious, Mild Distress, Other (pupils equal reactive. Rt eye is injected. Thre is no rash around the eye. Tetracaine was inserted in the eye. No foreign body could be seen, The eye was stained and he has a small lateral conjuntivial abrasion) Ears: Normal TMs Nose: Normal Inspection Throat/Mouth: Other (mild redness) Head: Atraumatic Neck: Normal Inspection Respiratory/Chest: No Respiratory Distress Cardiovascular: Regular Rate, Rhythm, Tachycardia GI/Abdominal: Soft, Non-Tender (Female) Exam: Deferred Rectal (Female) Exam: Deferred Back Exam: Normal Inspection Extremities: Normal Inspection Neurological: Alert, Oriented, Normal Cognition Psychiatric: Anxious Skin: Rash, Other ( The area on her back looks like multiple bites These is somewhat typical of a scabies rash) Characteristics: Linear Course - Vital Signs Last Recorded V/S: Last Vital Signs Temp 35.2 C 11/10/17 13:10 Pulse 105 H 11/10/17 14:34 Resp 14 11/10/17 14:34 BP 129/88 11/10/17 14:34 Pulse Ox 98 11/10/17 14:34 - Orders/Labs/Meds Orders: Active Orders 24 hr Category Date Time Status CULTURE STREP A CONFIRMATION [] Stat Lab 11/10/17 14:12 Results STREP SCRN A RAPID W CULT CONF [] Stat Lab 11/10/17 14:12 Results Labs: Laboratory Tests 11/10/17 11/10/17 11/10/17 Range/Units 13:51 13:51 14:12 WBC 5.7 (4.5-11.0) K/uL RBC 4.66 (3.30-5.50) M/uL Hgb 15.8 H (12.0-15.0) g/dL Hct 46.5 (36.0-48.0) % MCV 100 H (80-98) fL MCH 34 H (27-31) pg MCHC 34 (32-36) % Plt Count 196 (150-400) K/uL Neut % (Auto) 62 (36-66) % Lymph % (Auto) 28 (24-44) % [place] % (Auto) 8 H (2-6) % Eos % (Auto) 2 (2-4) % Baso % (Auto) 1 (0-1) % Sodium 148 (140-148) mmol/L Potassium 3.6 (3.6-5.2) mmol/L Chloride 109 H (100-108) mmol/L Carbon Dioxide 29 (21-32) mmol/L Anion Gap 13.6 (5.0-14.0) mmol/L BUN 2 L D (7-18) mg/dL Creatinine 0.7 (0.6-1.0) mg/dL Est Cr Clr Drug Dosing 86.18 mL/min Estimated GFR (MDRD) > 60 (>60) Glucose 113 H (74-106) mg/dL Calcium 8.6 (8.5-10.1) mg/dL Total Bilirubin 0.5 (0.2-1.0) mg/dL AST 112 H D (15-37) U/L ALT 62 D (12-78) U/L Alkaline Phosphatase 115 (46-116) U/L Total Protein 6.9 (6.4-8.2) g/dL Albumin 3.1 L (3.4-5.0) g/dL Globulin 3.8 H (2.3-3.5) g/dL Albumin/Globulin Ratio 0.8 L (1.2-2.2) Urine Color Yellow Urine Appearance Clear Urine pH 7.0 (4.5-8.0) Ur Specific [place] 1.010 (1.008-1.030) Urine Protein Negative (NEGATIVE) mg/dL Urine Glucose (UA) Normal (NEGATIVE) mg/dL Urine Ketones Negative (NEGATIVE) mg/dL Urine Occult Blood Negative (NEGATIVE) Urine Nitrite Negative (NEGATIVE) Urine Bilirubin Negative (NEGATIVE) Urine Urobilinogen Normal (NORMAL) mg/dL Ur Leukocyte Esterase Negative (NEGATIVE) Urine RBC Not seen (0-5) Urine WBC 0-5 (0-5) Ur Epithelial Cells Few Amorphous Sediment Not seen Urine Bacteria Not seen Urine Mucus Not seen Meds: Medications Discontinued Medications Generic Name Dose Route Start Last Admin Trade Name Freq PRN Reason Stop Dose Admin Tetracaine HCl 2 ml 11/10/17 13:57 11/10/17 14:01 Tetracaine 0.5% Steri-Unit Anitra EYERT 11/10/17 13:58 2 ml ASDIRECTED ONE Administration - Re-Assessments/Exams Free Text/Narrative Re-Assessment/Exam: 11/10/17 14:39 strept is neg, wbcs normal sgot is elevated mildly. Departure - Departure Time of Disposition: 14:41 Disposition: Home, Self-Care 01 Condition: Fair Clinical Impression: Scabies, Conjunctival abrasion - Discharge Information Instructions: Scabies, Adult Referrals: Paula Payne CNM [Primary Care Provider] - Forms: ED Department Discharge Care Plan Goals: permethrin 5%-- apply after showering . leave on for 6-7 hours than reshower, use benadryl 50mg q6h prn for itching, kenalog .1 % appy to the ant rash after her treatment tid, gentamycin eye drops 1-2 drops in the rt eye tid for 5 days. - My Orders Last 24 Hours: My Active Orders 11/10/17 14:12 CULTURE STREP A CONFIRMATION [RM] Stat STREP SCRN A RAPID W CULT CONF [] Stat - Assessment/Plan Last 24 Hours: My Active Orders 11/10/17 14:12 CULTURE STREP A CONFIRMATION [RM] Stat STREP SCRN A RAPID W CULT CONF [] Stat
[2017-11-10 14:34] VITALS: BP 129/88
== END 2017-11-10 15:14 | disposition home or self-care (01) ==
LOC: JP.ED 12:55
DX: B86 Scabies (principal); S05.00XA Injury of conjunctiva and corneal abrasion without foreign body, unspecified eye, initial encounter; I10 Essential (primary) hypertension; E78.00 Pure hypercholesterolemia, unspecified; F32.9 Major depressive disorder, single episode, unspecified; F17.210 Nicotine dependence, cigarettes, uncomplicated; Z88.2 Allergy status to sulfonamides; Z88.8 Allergy status to other drugs, medicaments and biological substances; X58.XXXA Exposure to other specified factors, initial encounter
CPT/HCPCS: 36415; 80053; 81001; 85025; 87081; 87430; 99284; A9270-GY

== ENCOUNTER 2017-12-16 11:35 | Observation (INO) | payer BC ==
--- NOTE | 2017-12-16 11:46 | EDM.PDOCBH ---
ED HPI GENERAL MEDICAL PROBLEM - General Chief Complaint: Behavioral/Psych Stated Complaint: ILLNESS Time Seen by Provider: 12/16/17 11:35 Source of Information: Reports: Patient History Limitations: Reports: No Limitations - History of Present Illness INITIAL COMMENTS - FREE TEXT/NARRATIVE: 37-year-old female with a history of anxiety and depression, also alcohol abuse went into her garage and was running her car in an attempt to cause self-harm as she was having suicidal thoughts. However she got "scared" and called her neighbor, her neighbor came and pulled her out and brought her in the hospital. She is alert, oriented, has no complaints of headache or shortness of breath. She was placed on 12 L of O2 nonrebreather, her vitals are stable except for tachycardia 127. She has no complaints of pain, does not feel short of breath, no weakness complaints. She now is just saying "let me go, let me ". She thought she was in the garage for "about 20 minutes". Onset: Unknown/Unsure Severity: Moderate Associated Symptoms: Reports: No Other Symptoms - Related Data Allergies Allergy/AdvReac Type Severity Reaction Status Date / Time duloxetine [From Cymbalta] Allergy Other Verified 12/16/17 11:41 Sulfa (Sulfonamide Allergy Hives Verified 12/16/17 11:41 Antibiotics) Home Meds: Home Meds ALPRAZolam [Alprazolam] 0.5 mg PO TID 09/01/15 [History] Metoprolol Succinate [Metoprolol Succinate] 50 mg PO DAILY 06/02/17 [History] busPIRone [Buspar] 10 mg PO TID 06/02/17 [History] Rivaroxaban [Xarelto] 20 mg PO DAILY 06/13/17 [History] Past Medical History HEENT History: Reports: Other (See Below) Other HEENT History: Pseudotumor cerebri. MRI completed 01/2016 with negative results. Cardiovascular History: Reports: Arrhythmia, Blood Clots/VTE/DVT, High Cholesterol, Hypertension, Other (See Below) Other Cardiovascular History: morris parkinson white, tachycardia Gastrointestinal History: Reports: Other (See Below) Other Gastrointestinal History: Gastric ulcer [employer] History: Reports: Other OB/BYN History: Right ovarian cyst with removal, IUD Neurological History: Reports: Migraines Other Neuro History: pseudo tumor Psychiatric History: Reports: Addiction, Anxiety, Depression, Other (See Below) Other Psychiatric History: alcohol Hematologic History: Reports: Anticoagulation Therapy - Infectious Disease History Infectious Disease History: Reports: Chicken Pox - Past Surgical History Cardiovascular Surgical History: Reports: Cardiac Ablation GI Surgical History: Reports: EGD Social & Family History - Family History Cardiac: Reports: Hypertension, Syncope Psychiatric: Reports: Anxiety, Depression Endocrine/Metabolic: Reports: Diabetes, type II Hematologic: Reports: Bleeding Disorder - Tobacco Use Smoking Status *Q: Current Some Day Smoker Years of Tobacco use: 15 Packs/Tins Daily: 0 Used Tobacco, but Quit: No Second Hand Smoke Exposure: Yes - Caffeine Use Caffeine Use: Reports: None - Alcohol Use Days Per Week of Alcohol Use: 0 Number of Drinks Per Day: 3 Total Drinks Per Week: 0 - Recreational Drug Use Recreational Drug Use: No - Living Situation & Occupation Living situation: Reports: Occupation: Employed ED ROS GENERAL - Review of Systems Review Of Systems: See Below Constitutional: Denies: Fever HEENT: Reports: No Symptoms Respiratory: Denies: Shortness of Breath, Cough Cardiovascular: Denies: Chest Pain GI/Abdominal: Denies: Abdominal Pain, Nausea, Vomiting Skin: Reports: No Symptoms Neurological: Denies: Headache ED EXAM, BEHAVIORAL HEALTH - Physical Exam Exam: See Below Exam Limited By: No Limitations General Appearance: Alert, No Apparent Distress, Other (Patient is tearful) Eye Exam: Bilateral Eye: Normal Inspection (Normal hydration) Head: Atraumatic Neck: Supple Respiratory/Chest: No Respiratory Distress, Lungs Clear Cardiovascular: Regular Rate, Rhythm, Tachycardia GI/Abdominal: Soft, Non-Tender Extremities: Normal Inspection. No: Pedal Edema Neurological: Alert, No Motor/Sensory Deficits, Oriented x 3 Psychiatric: Alert, Depressed Mood, Tearful Skin Exam: Warm, Dry COURSE, BEHAVIORAL HEALTH COMP - Course Vital Signs: Last Vital Signs Temp 98 F 12/16/17 14:40 Pulse 101 H 12/16/17 14:40 Resp 14 12/16/17 14:40 BP 113/75 12/16/17 14:40 Pulse Ox 100 12/16/17 14:40 Orders, Labs, Meds: Medication Orders Acetaminophen (Tylenol) 650 mg PO Q4H PRN PRN Reason: Pain (Mild 1-3)/fever Last Admin: 12/16/17 15:01 Dose: 650 mg Alprazolam (Xanax) 0.5 mg PO BID PRN PRN Reason: Anxiety Sodium Chloride (Normal Saline) 1,000 mls @ 125 mls/hr IV ASDIRECTED [facility] Stop: 12/16/17 22:38 Last Admin: 12/16/17 15:03 Dose: 125 mls/hr Ibuprofen (Motrin) 600 mg PO Q6H PRN PRN Reason: Pain/Fever Metoprolol Succinate (Toprol Xl) 50 mg PO DAILY [facility] Ondansetron HCl (Zofran Odt) 4 mg PO Q6H PRN PRN Reason: Nausea able to take PO Laboratory Tests 12/16/17 12/16/17 12/16/17 Range/Units 11:38 11:50 11:50 WBC 9.6 (4.5-11.0) K/uL RBC 4.48 (3.30-5.50) M/uL Hgb 16.5 H (12.0-15.0) g/dL Hct 46.7 (36.0-48.0) % MCV 104 H (80-98) fL MCH 37 H (27-31) pg MCHC 35 (32-36) % Plt Count 275 (150-400) K/uL Neut % (Auto) 54 (36-66) % Lymph % (Auto) 36 (24-44) % [place] % (Auto) 8 H (2-6) % Eos % (Auto) 1 L (2-4) % Baso % (Auto) 1 (0-1) % Puncture Site Lt brachial ABG pH 7.429 (7.350-7.450) ABG pCO2 22.3 L (35.0-42.0) mmHg ABG pO2 289.0 H (75.0-100.0) mmHg ABG HCO3 Not Reportable ABG Total CO2 Not Reportable ABG O2 Saturation 99.8 H (95.0-98.0) % ABG O2 Content 21.6 (15.0-23.0) %vol ABG Base Excess Not Reportable ABG Hemoglobin 16.2 H (12.0-16.0) g/dL ABG Oxyhemoglobin 92.1 % ABG Carboxyhemoglobin 7.0 H (0.0-1.6) % ABG Methemoglobin 0.7 % Silas Test Passed O2 Delivery Device Non rebr mask Sodium 140 (140-148) mmol/L Potassium 3.8 (3.6-5.2) mmol/L Chloride 103 (100-108) mmol/L Carbon Dioxide 15 L (21-32) mmol/L Anion Gap 25.8 H (5.0-14.0) mmol/L BUN 5 L D (7-18) mg/dL Creatinine 0.7 (0.6-1.0) mg/dL Est Cr Clr Drug Dosing 86.18 mL/min Estimated GFR (MDRD) > 60 (>60) Glucose 69 L (74-106) mg/dL Calcium 8.5 (8.5-10.1) mg/dL Salicylates (2.0-20.0) mg/dL Acetaminophen 0.0 L (10.0-30.0) ug/mL Ethyl Alcohol mg/dL 12/16/17 12/16/17 Range/Units 11:50 11:50 WBC (4.5-11.0) K/uL RBC (3.30-5.50) M/uL Hgb (12.0-15.0) g/dL Hct (36.0-48.0) % MCV (80-98) fL MCH (27-31) pg MCHC (32-36) % Plt Count (150-400) K/uL Neut % (Auto) (36-66) % Lymph % (Auto) (24-44) % [place] % (Auto) (2-6) % Eos % (Auto) (2-4) % Baso % (Auto) (0-1) % Puncture Site ABG pH (7.350-7.450) ABG pCO2 (35.0-42.0) mmHg ABG pO2 (75.0-100.0) mmHg ABG HCO3 ABG Total CO2 ABG O2 Saturation (95.0-98.0) % ABG O2 Content (15.0-23.0) %vol ABG Base Excess ABG Hemoglobin (12.0-16.0) g/dL ABG Oxyhemoglobin % ABG Carboxyhemoglobin (0.0-1.6) % ABG Methemoglobin % Silas Test O2 Delivery Device Sodium (140-148) mmol/L Potassium (3.6-5.2) mmol/L Chloride (100-108) mmol/L Carbon Dioxide (21-32) mmol/L Anion Gap (5.0-14.0) mmol/L BUN (7-18) mg/dL Creatinine (0.6-1.0) mg/dL Est Cr Clr Drug Dosing mL/min Estimated GFR (MDRD) (>60) Glucose (74-106) mg/dL Calcium (8.5-10.1) mg/dL Salicylates 1.9 L (2.0-20.0) mg/dL Acetaminophen (10.0-30.0) ug/mL Ethyl Alcohol 298 mg/dL Medications Generic Name Dose Route Start Last Admin Trade Name Freq PRN Reason Stop Dose Admin Acetaminophen 650 mg 12/16/17 14:39 12/16/17 15:01 Tylenol PO 650 mg Q4H PRN Administration Pain (Mild 1-3)/fever Alprazolam 0.5 mg 12/16/17 14:39 Xanax PO BID PRN Anxiety Sodium Chloride 1,000 mls @ 125 mls/hr 12/16/17 14:39 12/16/17 15:03 Normal Saline IV 12/16/17 22:38 125 mls/hr ASDIRECTED [facility] Administration Ibuprofen 600 mg 12/16/17 14:39 Motrin PO Q6H PRN Pain/Fever Metoprolol Succinate 50 mg 12/17/17 09:00 Toprol Xl PO DAILY [facility] Ondansetron HCl 4 mg 12/16/17 14:39 Zofran Odt PO Q6H PRN Nausea able to take PO Re-Assessment/Re-Exam: Patient was placed on 12 L of O2 with a nonrebreather, CBC, BMP, ABGs, EtOH, acetaminophen and salicylates were obtained. She was kept on cardiac monitoring. Initially she does not appear to have suffered serious carbon monoxide poisoning. After ABGs were drawn, the O2 was turned down to 6 L. The tachycardia continued to stabilize and was 108 20 minutes after arriving. HBCO 7%, indicating a range of 100-200 ppm. Patient was reduced to 2 L nasal cannula O2. Discussed her situation with her neighbor who found her. Her 2 children, ages 14 and 17 are moving away to live with their father which has caused her depression to worsen. She was however sitting in the car with the windows closed , he feels this was more for a "cry for help". Anion gap was 26, EtOH 0.298. It would be very hard to get this patient admitted to an inpatient psychiatric facility until she is stabilized. I'm going to ask the hospitalist service to consider admitting her under observation for 24 hours, possibly obtaining a psychiatric eval at some point. Departure - Departure Time of Disposition: 14:30 Disposition: Admitted As Inpatient 65 Condition: Fair Clinical Impression: Suicide attempt Suicide attempt by carbon monoxide poisoning Qualifiers: Encounter type: initial encounter Qualified Code(s): T58.92XA - Toxic effect of carbon monoxide from unspecified source, intentional self-harm, initial encounter - Discharge Information
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
[2017-12-16] MEDS ORDERED: Sodium Chloride 0.9% 1,000 ML IV SCH (14:39)
[2017-12-16] MEDS ORDERED: Ondansetron 4 MG Tab.DIS PO PRN (14:39)
[2017-12-16] MEDS: Acetaminophen 325 MG Tab PO PRN (15:01)
[2017-12-16] MEDS: Ibuprofen 600 MG Tab PO PRN (16:54)
[2017-12-16] MEDS: ALPRAZolam 0.5 MG Tab PO PRN (18:39)
[2017-12-17] MEDS: ALPRAZolam 0.5 MG Tab PO PRN (06:14)
[2017-12-17] MEDS: Acetaminophen 325 MG Tab PO PRN (07:37)
[2017-12-17] MEDS ORDERED: Metoprolol Succinate 50 MG Tab.ER PO SCH (09:00)
[2017-12-17] MEDS ORDERED: LORazepam 1 MG Tab PO ONE (10:00)
--- NOTE | 2017-12-17 10:02 | PCM.DCSUM1 ---
Discharge Summary - Hospital Course Brief History: 37 year old female with history of left leg DVT, tobacco dependence, PTSD and generalized anxiety disorder who presented by ambulance after being found in her garage on the floor with her car running in the garage door closed. - Discharge Data Discharge Date: 12/17/17 Discharge Disposition: DC/Tfer to Psych Hosp/Unit 65 Condition: Fair - Discharge Diagnosis/Problem(s) (1) Suicide attempt SNOMED Code(s): 47988710 ICD Code: T14.91XA - SUICIDE ATTEMPT, INITIAL ENCOUNTER Status: Acute Current Visit: Yes (2) Hx of deep venous thrombosis SNOMED Code(s): 364077094 ICD Code: Z86.718 - PERSONAL HISTORY OF OTHER VENOUS THROMBOSIS AND EMBOLISM Status: Chronic Current Visit: Yes Problem Details: Dx 05/2017, suspect provoked event (3) Palpitations SNOMED Code(s): 83580504 ICD Code: R00.2 - PALPITATIONS Status: Chronic Current Visit: Yes Problem Details: Hx of WPW, has had ablation. Stable on metoprolol - Patient Summary/Data Hospital Course: Radha was brought to the emergency room by ambulance after an apparent suicide attempt by carbon monoxide poisoning. In the emergency room she was noted to have a carboxyhemoglobin level of 7 and an anion gap metabolic acidosis. Allegedly there was a suicide note left at her house. She made statements in the emergency room that she wanted to . She was not felt safe for immediate transfer to an inpatient psychiatric facility so she was admitted for observation and medical stabilization. There were no acute events overnight following admission. The mild tachycardia noted in the emergency room resolved. Laboratory studies the morning after admission are essentially normal. Vital signs are stable and in general the patient does not have physical complaints. I feel that this event represents a very serious event and that she is not safe for outpatient management at this time. She appears to have suboptimally managed anxiety as well as some PTSD further complicated by major depression with significant social stressors. I think that she would benefit from inpatient management for psychiatric evaluation and medication initiation. The plan is for her to transfer to [facility] in [place] via [facility] transport. She will receive inpatient evaluation and further management there. Her home psychiatric medication regimen included the following: - Buspar which she had not been taking because of a drowsy feeling - Trazodone for sleep which she had not been taking because it didn't seem like it helped much - Alprazolam which she had been using approximately once daily for anxiety She is on metoprolol to help with palpitations which is a chronic issue and has been stable. She has a history of a left leg DVT. She has completed 6 months of treatment with Xarelto. She can stop taking this medication at this time and should monitor for recurrence of pain and/or swelling. - Patient Instructions Diet: Regular Diet as Tolerated Activity: As Tolerated Showering/Bathing: May Shower Notify Provider of: Fever, Increased Pain, Nausea and/or Vomiting Other/Special Instructions: 1. You were in the hospital for observation after a serious suicide attempt involving carbon monoxide poisoning. Because of the serious nature of the event I do recommend inpatient psychiatric evaluation and management. You will be transferred to [facility] in [place]. 2. You were previously on Xarelto for a provoked left leg DVT. You have completed 6 months of treatment and I believe are safe to stop this medication at this time. You should be sure to monitor for pain or swelling in your left leg as this could be a sign that the blood clot is returning. Quitting smoking completely can further reduce your risk of a recurrent blood clot. 3. Seek medical attention if you develop fever greater than 101, have sudden onset of shortness of breath or if you develop severe chest pain. - Discharge Plan Home Medications: Home Meds ALPRAZolam [Alprazolam] 0.5 mg PO TID 09/01/15 [History] Metoprolol Succinate 50 mg PO DAILY 06/02/17 [History] Patient Handouts: Carbon Monoxide Poisoning, [id number] Referrals: PCP,None [Primary Care Provider] - (Follow-up with primary care after discharge from the hospital) - Discharge Summary/Plan Comment DC Time >30 min.: Yes (50 - transfer to psych unit) - Patient Data Vitals - Most Recent: Last Vital Signs Temp 36.8 C 12/17/17 07:00 Pulse 100 12/17/17 09:12 Resp 9 L 12/17/17 07:00 BP 134/76 12/17/17 09:12 Pulse Ox 99 12/17/17 07:00 Weight - Most Recent: 72.575 kg I&O - Last 24 hours: Intake & Output 12/16/17 12/17/17 12/17/17 22:59 06:59 14:59 Intake Total 700 Output Total 925 Balance -225 Lab Results - Last 24 hrs: Laboratory Results - last 24 hr 12/17/17 12/17/17 12/17/17 Range/Units 05:11 06:04 06:04 WBC 6.7 (4.5-11.0) K/uL RBC 3.93 (3.30-5.50) M/uL Hgb 14.2 D (12.0-15.0) g/dL Hct 40.9 (36.0-48.0) % MCV 104 H (80-98) fL MCH 36 H (27-31) pg MCHC 35 (32-36) % Plt Count 208 (150-400) K/uL Puncture Site Lt brachial ABG pH 7.424 (7.350-7.450) ABG pCO2 33.9 L (35.0-42.0) mmHg ABG pO2 150.0 H (75.0-100.0) mmHg ABG HCO3 21.8 L (22.0-26.0) mmol/L ABG Total CO2 19.0 L (21.0-25.0) mmol/L ABG O2 Saturation 99.2 H (95.0-98.0) % ABG O2 Content 19.6 (15.0-23.0) %vol ABG Base Excess -1.4 mm/L ABG Hemoglobin 14.3 (12.0-16.0) g/dL ABG Oxyhemoglobin 96.7 % ABG Carboxyhemoglobin 2.0 H (0.0-1.6) % ABG Methemoglobin 0.5 % Silas Test None O2 Delivery Device Nasal cannula Oxygen Flow Rate 2 L Sodium 141 (140-148) mmol/L Potassium 4.5 (3.6-5.2) mmol/L Chloride 107 (100-108) mmol/L Carbon Dioxide 23 (21-32) mmol/L Anion Gap 11.3 (5.0-14.0) mmol/L BUN 5 L (7-18) mg/dL Creatinine 0.6 (0.6-1.0) mg/dL Est Cr Clr Drug Dosing 100.55 mL/min Estimated GFR (MDRD) > 60 (>60) Glucose 73 L (74-106) mg/dL Calcium 8.4 L (8.5-10.1) mg/dL Med Orders - Current: Current Medications Acetaminophen (Tylenol) 650 mg PO Q4H PRN PRN Reason: Pain (Mild 1-3)/fever Last Admin: 12/17/17 07:37 Dose: 650 mg Alprazolam (Xanax) 0.5 mg PO BID PRN PRN Reason: Anxiety Last Admin: 12/17/17 06:14 Dose: 0.5 mg Ibuprofen (Motrin) 600 mg PO Q6H PRN PRN Reason: Pain/Fever Last Admin: 12/16/17 16:54 Dose: 600 mg Lorazepam (Ativan) 1 mg PO ONETIME ONE Stop: 12/17/17 09:42 Metoprolol Succinate (Toprol Xl) 50 mg PO DAILY [facility] Last Admin: 12/17/17 09:12 Dose: 50 mg Ondansetron HCl (Zofran Odt) 4 mg PO Q6H PRN PRN Reason: Nausea able to take PO Last Admin: 12/17/17 07:37 Dose: 4 mg Discontinued Medications Sodium Chloride (Normal Saline) 1,000 mls @ 125 mls/hr IV ASDIRECTED [facility] Stop: 12/16/17 22:38 Last Admin: 12/16/17 15:03 Dose: 125 mls/hr - Exam Quality Assessment: Denies: Supplemental Oxygen General: Reports: Alert, Oriented, Cooperative, No Acute Distress Neck: Reports: Supple Lungs: Reports: Normal Respiratory Effort GI/Abdominal Exam: No Distention Extremities: No Pedal Edema Skin: Reports: Warm, Dry Psy/Mental Status: Reports: Alert, Anxious *Q Meaningful Use (DIS) - VTE *Q VTE Criteria *Q: - Stroke *Q Stroke Criteria *Q: - AMI *Q AMI Criteria *Q:
[2017-12-17] MEDS ORDERED: Nicotine 14 MG/24 Hr Patch TRDERM ONE (10:20)
[2017-12-17] MEDS: Ibuprofen 600 MG Tab PO PRN (12:32)
[2017-12-17 12:55] VITALS: BP 131/77
== END 2017-12-17 15:50 | disposition home or self-care (01) ==
LOC: JP.ED 11:35 → JP.ICU 14:11
PROVIDERS: ADMIT Internal Medicine; ATTEND Internal Medicine
DX: T58.02XA Toxic effect of carbon monoxide from motor vehicle exhaust, intentional self-harm, initial encounter (principal); R00.2 Palpitations; F43.10 Post-traumatic stress disorder, unspecified; F41.1 Generalized anxiety disorder; F32.9 Major depressive disorder, single episode, unspecified; F43.21 Adjustment disorder with depressed mood; I10 Essential (primary) hypertension; E78.00 Pure hypercholesterolemia, unspecified; I45.6 Pre-excitation syndrome; G43.909 Migraine, unspecified, not intractable, without status migrainosus; F17.210 Nicotine dependence, cigarettes, uncomplicated; F10.10 Alcohol abuse, uncomplicated; E87.2 Acidosis; Y90.8 Blood alcohol level of 240 mg/100 ml or more; Z86.718 Personal history of other venous thrombosis and embolism; Z91.5 Personal history of self-harm; Z79.899 Other long term (current) drug therapy; Z88.2 Allergy status to sulfonamides; Z88.8 Allergy status to other drugs, medicaments and biological substances; Y92.015 Private garage of single-family (private) house as the place of occurrence of the external cause
CPT/HCPCS: 36415; 36600; 80048; 82803; 85025; 85027; 96360; 96361; 99285; A9270; G0378; G0480; J7040

== ENCOUNTER 2018-01-18 21:55 | Emergency (ER) | payer BC ==
[2018-01-18 22:04] VITALS: BP 152/95
--- NOTE | 2018-01-18 22:45 | EDM.PDOC ---
ED HPI GENERAL MEDICAL PROBLEM - General Chief Complaint: Gastrointestinal Problem Stated Complaint: ILLNESS Time Seen by Provider: 01/18/18 22:41 Source of Information: Reports: Patient History Limitations: Reports: No Limitations - History of Present Illness INITIAL COMMENTS - FREE TEXT/NARRATIVE: This lady comes in complaining of vomiting and diarrhea for 3 days. She just doesn't feel right. She complains of leg pain and thinks maybe she has blood clots. She has a little bit of shortness of breath there is no chest pain no abdominal pain she wonders if she might be dehydrated. Her big problem is that she ran out of Ativan about 6 days ago. She isn't sure what dosage she is Bilateral Leg Pain Score (Numeric/FACES): 10 - Related Data Allergies Allergy/AdvReac Type Severity Reaction Status Date / Time duloxetine [From Cymbalta] Allergy Other Verified 12/16/17 11:41 Sulfa (Sulfonamide Allergy Hives Verified 12/16/17 11:41 Antibiotics) Home Meds: Home Meds ALPRAZolam [Alprazolam] 0.5 mg PO TID PRN 09/01/15 [History] Metoprolol Succinate 50 mg PO DAILY 06/02/17 [History] Past Medical History HEENT History: Reports: Other (See Below) Other HEENT History: Pseudotumor cerebri. MRI completed 01/2016 with negative results. 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 OB/BYN History: Right ovarian cyst with removal, IUD Neurological History: Reports: Migraines Other Neuro History: pseudo tumor Psychiatric History: Reports: Addiction, Anxiety, Depression, Other (See Below) Other Psychiatric History: alcohol Hematologic History: Reports: Anticoagulation Therapy - Infectious Disease History Infectious Disease History: Reports: Chicken Pox - Past Surgical History Head Surgeries/Procedures: Reports: None Cardiovascular Surgical History: Reports: Cardiac Ablation GI Surgical History: Reports: EGD Social & Family History - Family History Cardiac: Reports: Hypertension, Syncope Psychiatric: Reports: Anxiety, Depression Endocrine/Metabolic: Reports: Diabetes, type II Hematologic: Reports: Bleeding Disorder - Tobacco Use Smoking Status *Q: Current Some Day Smoker Years of Tobacco use: 15 Packs/Tins Daily: 0 Used Tobacco, but Quit: No Second Hand Smoke Exposure: Yes - Caffeine Use Caffeine Use: Reports: None - Alcohol Use Days Per Week of Alcohol Use: 2 Number of Drinks Per Day: 3 Total Drinks Per Week: 6 - Recreational Drug Use Recreational Drug Use: No - Living Situation & Occupation Living situation: Reports: Occupation: Employed ED ROS GENERAL - Review of Systems Review Of Systems: ROS reveals no pertinent complaints other than HPI. ED EXAM, GI/ABD - Physical Exam Exam: See Below Exam Limited By: No Limitations General Appearance: Alert, No Apparent Distress Eyes: Bilateral: Normal Appearance Ears: Normal External Exam Throat/Mouth: Normal Oropharynx Head: Atraumatic Neck: Normal Inspection Respiratory/Chest: Lungs Clear Cardiovascular: Regular Rate, Rhythm, No Murmur GI/Abdominal Exam: Non-Tender Back Exam: Normal Inspection Extremities: Normal Inspection (There are no areas of tenderness except a very small area about 1-1/2 cm in diameter to the lateral aspect of the left lower leg. I can palpate what appears to be a small venous spencer which may be inflamed. There seems to be a little bit of bruising over it and it's has point tenderness consistent with superficial thrombophlebitis) Neurological: Alert, Oriented Psychiatric: Normal Affect Skin Exam: Warm, Dry Course - Vital Signs Last Recorded V/S: Last Vital Signs Temp 36.9 C 01/18/18 22:10 Pulse 111 H 01/18/18 22:10 Resp 17 01/18/18 22:10 BP 152/95 H 01/18/18 22:10 Pulse Ox 96 01/18/18 22:10 Departure - Departure Time of Disposition: 22:42 Disposition: Home, Self-Care 01 Condition: Fair Clinical Impression: Vomiting, Diarrhea, Superficial thrombophlebitis - Discharge Information Instructions: Diarrhea, Adult, Vomiting, Adult Referrals: PCP,None [Primary Care Provider] - Forms: ED Department Discharge Additional Instructions: For nausea use the Zofran one or 2 tablets sublingual every 8 hours. If you need something for diarrhea you can try the [id number] Motrin. Recommend clear liquid diet for the next 24 hours be sure you drink plenty of liquids to avoid dehydration. For superficial thrombophlebitis just an anti-inflammatory medication such as Motri would be fine. A compression stockings to keep those veins collapsed would also help. This is just a little tiny area of thrombophlebitis definitely this is not a DVT. The veins involved are just right up under the skin. Follow-up with your doctor in a few days for refills of the Ativan.
== END 2018-01-18 22:53 | disposition home or self-care (01) ==
LOC: JP.ED 21:55
DX: I80.02 Phlebitis and thrombophlebitis of superficial vessels of left lower extremity (principal); R19.7 Diarrhea, unspecified; R11.10 Vomiting, unspecified; F41.9 Anxiety disorder, unspecified; F32.9 Major depressive disorder, single episode, unspecified; F17.210 Nicotine dependence, cigarettes, uncomplicated; Z88.2 Allergy status to sulfonamides; Z88.8 Allergy status to other drugs, medicaments and biological substances; Z79.899 Other long term (current) drug therapy
CPT/HCPCS: 99284

== ENCOUNTER 2018-03-17 08:51 | Emergency (ER) | payer BC ==
[2018-03-17 09:16] VITALS: BP 127/88
[2018-03-17] MEDS ORDERED: Ketorolac 30 MG/ML SDV IM ONE (09:37)
--- NOTE | 2018-03-17 09:58 | EDM.PDOC ---
ED HPI GENERAL MEDICAL PROBLEM - General Chief Complaint: ENT Problem Stated Complaint: BODY ACHES,RIGHT FACIAL SWELLING,VOMITING Time Seen by Provider: 03/17/18 09:27 Source of Information: Reports: Patient, Family, RN Notes Reviewed History Limitations: Reports: No Limitations - History of Present Illness INITIAL COMMENTS - FREE TEXT/NARRATIVE: 37-year-old female presents to the emergency department complaint of facial pain , she states is been going on for about 5 days this progressively gotten worse she does have some drainage in the back of her throat which has a poor taste, no fevers no nausea vomiting no dental evaluation Right Gums Pain Score (Numeric/FACES): 10 - Related Data Allergies Allergy/AdvReac Type Severity Reaction Status Date / Time duloxetine [From Cymbalta] Allergy Other Verified 03/17/18 09:13 Sulfa (Sulfonamide Allergy Hives Verified 03/17/18 09:13 Antibiotics) Home Meds: Home Meds ALPRAZolam [Alprazolam] 0.5 mg PO TID PRN 09/01/15 [History] Metoprolol Succinate 50 mg PO DAILY 06/02/17 [History] Clindamycin HCl 300 mg PO TID 03/17/18 [History] FLUoxetine HCl [Prozac] 20 mg PO DAILY 03/17/18 [History] cloNIDine [Catapres] 0.1 mg PO TID PRN 03/17/18 [History] traZODone 100 mg PO BEDTIME 03/17/18 [History] Past Medical History HEENT History: Reports: Other (See Below) Other HEENT History: Pseudotumor cerebri. MRI completed 01/2016 with negative results. 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 History: Right ovarian cyst with removal, IUD Neurological History: Reports: Migraines Other Neuro History: pseudo tumor Psychiatric History: Reports: Addiction, Anxiety, Depression, Other (See Below) Other Psychiatric History: alcohol Hematologic History: Reports: Anticoagulation Therapy - Infectious Disease History Infectious Disease History: Reports: Chicken Pox - Past Surgical History Head Surgeries/Procedures: Reports: None Cardiovascular Surgical History: Reports: Cardiac Ablation GI Surgical History: Reports: EGD Social & Family History - Family History Cardiac: Reports: Hypertension, Syncope Psychiatric: Reports: Anxiety, Depression Endocrine/Metabolic: Reports: Diabetes, type II Hematologic: Reports: Bleeding Disorder - Tobacco Use Smoking Status *Q: Current Every Day Smoker Years of Tobacco use: 20 Packs/Tins Daily: 0.5 - Caffeine Use Caffeine Use: Reports: Soda - Recreational Drug Use Recreational Drug Use: No - Living Situation & Occupation Living situation: Reports: Occupation: Employed ED ROS ENT - Review of Systems Review Of Systems: See Below Constitutional: Denies: Fever, Chills HEENT: Reports: Dental Pain Respiratory: Reports: No Symptoms Cardiovascular: Reports: No Symptoms GI/Abdominal: Reports: No Symptoms : Reports: No Symptoms Musculoskeletal: Reports: Muscle Pain ED EXAM, ENT - Physical Exam Exam: See Below Exam Limited By: No Limitations General Appearance: Alert, Mild Distress Ears: Normal External Exam Nose: Normal Inspection, Normal Mucousa, No Blood Mouth/Throat: Normal Inspection, Normal Lips, Normal Oropharynx, Dental Abcess, Dental Pain Head: Atraumatic, Normocephalic Neck: Normal Inspection, Supple, Non-Tender, Full Range of Motion Respiratory/Chest: No Respiratory Distress, Lungs Clear, Normal Breath Sounds, No Accessory Muscle Use, Chest Non-Tender Cardiovascular: No Murmur, Tachycardia GI/Abdominal: Soft, Non-Tender Course - Vital Signs Last Recorded V/S: Last Vital Signs Temp 96.8 F 03/17/18 09:12 Pulse 127 H 03/17/18 09:12 Resp 12 03/17/18 09:12 BP 127/88 03/17/18 09:12 Pulse Ox 98 03/17/18 09:12 - Orders/Labs/Meds Meds: Medications Discontinued Medications Generic Name Dose Route Start Last Admin Trade Name Freq PRN Reason Stop Dose Admin Ketorolac Tromethamine 30 mg 03/17/18 09:37 03/17/18 09:52 Toradol IM 03/17/18 09:38 30 mg ONETIME ONE Administration Departure - Departure Time of Disposition: 09:58 Disposition: Home, Self-Care 01 Condition: Fair Clinical Impression: Dental abscess - Discharge Information Referrals: Paula Payne CNM [Primary Care Provider] - Additional Instructions: Take full course of antibiotics, use ibuprofen for baseline pain control use hydrocodone for breakthrough pain, please report to the dental clinic tomorrow morning at 8:15 for an evaluation - Assessment/Plan Plan: Assessment Acuity = acute Site and laterality = dental abscess Etiology = probable bacterial cause Manifestations = pain Location of injury = Home Lab values = none Plan Toradol provided in the emergency department, prescription written for amoxicillin 500 mg by mouth 3 times a day 10 days, hydrocodone 5/325 one tab by mouth 3 times a day when necessary total #4 also referral to community dental service for tomorrow morning This note was dictated using [employer] voice recognition software please call with any questions on syntax or grammar.
== END 2018-03-17 10:14 | disposition home or self-care (01) ==
LOC: JP.ED 08:51
DX: K04.7 Periapical abscess without sinus (principal); E78.00 Pure hypercholesterolemia, unspecified; I10 Essential (primary) hypertension; F17.210 Nicotine dependence, cigarettes, uncomplicated; Z88.2 Allergy status to sulfonamides; Z88.8 Allergy status to other drugs, medicaments and biological substances; Z79.899 Other long term (current) drug therapy
CPT/HCPCS: 96372; 99283; J1885

== ENCOUNTER 2018-06-08 11:48 | Emergency (ER) | payer MEDICAID | END 2018-06-08 12:00 | disposition left against medical advice (07) | LOC: JP.ED 11:48 | DX: Z53.21 Procedure and treatment not carried out due to patient leaving prior to being seen by health care provider (principal) ==

== ENCOUNTER 2018-06-08 16:16 | Emergency (ER) | payer MEDICAID ==
[2018-06-08 17:55] VITALS: BP 120/70
== END 2018-06-08 19:14 | disposition left against medical advice (07) ==
LOC: JP.ED 16:16
DX: Z53.21 Procedure and treatment not carried out due to patient leaving prior to being seen by health care provider (principal)

== ENCOUNTER 2019-04-15 02:30 | Emergency (ER) | payer BC, MEDICAID ==
[2019-04-15 03:01] VITALS: BP 117/68; PULSE 89
--- NOTE | 2019-04-15 03:01 | EDM.PDOC ---
ED HPI GENERAL MEDICAL PROBLEM - General Chief Complaint: General Stated Complaint: WEAK Time Seen by Provider: 04/15/19 02:45 Source of Information: Reports: Patient History Limitations: Reports: No Limitations - History of Present Illness INITIAL COMMENTS - FREE TEXT/NARRATIVE: 38-year-old female with a history of hypokalemia, is on hydrochlorothiazide and potassium supplementation but for the past 24 hours feels weak, dizzy, intermittent double vision which have been symptoms in the past when her potassium gets low. She is in town visiting her boyfriend and decided to come to the emergency room and have her potassium checked. No fevers or chills, mild diarrhea. Onset: Unknown/Unsure Associated Symptoms: Reports: Malaise, Weakness. Denies: Confusion, Chest Pain , Cough, Nausea/Vomiting, Shortness of Breath - Related Data Allergies Allergy/AdvReac Type Severity Reaction Status Date / Time duloxetine [From Cymbalta] Allergy Other Verified 09/06/18 14:12 Sulfa (Sulfonamide Allergy Hives Verified 09/06/18 14:12 Antibiotics) Home Meds: Home Meds Metoprolol Succinate 50 mg PO DAILY 06/02/17 [History] FLUoxetine HCl [Prozac] 20 mg PO DAILY 03/17/18 [History] traZODone 100 mg PO BEDTIME 03/17/18 [History] LORazepam 0.5 mg PO BID PRN 09/06/18 [History] Ondansetron [Zofran ODT] 4 mg PO ASDIRECTED 04/15/19 [History] Topiramate [Topamax] 100 mg PO BID 04/15/19 [History] hydroCHLOROthiazide [Hydrochlorothiazide] 12.5 mg PO ASDIRECTED 04/15/19 [ History] Past Medical History HEENT History: Reports: Other (See Below) Other HEENT History: Pseudotumor cerebri. MRI completed 01/2016 with negative results. 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: Right ovarian cyst with removal, IUD Neurological History: Reports: Migraines Other Neuro History: pseudo tumor Psychiatric History: Reports: Addiction, Anxiety, Depression, Suicide Attempt, Suicidal Ideation, Other (See Below) Other Psychiatric History: alcohol Hematologic History: Reports: Anticoagulation Therapy Dermatologic History: Reports: Other (See Below) Other Dermatologic History: rash on back and mid chest - Infectious Disease History Infectious Disease History: Reports: Chicken Pox - Past Surgical History Head Surgeries/Procedures: Reports: None Cardiovascular Surgical History: Reports: Cardiac Ablation GI Surgical History: Reports: EGD Social & Family History - Family History Cardiac: Reports: Hypertension, Syncope Psychiatric: Reports: Anxiety, Depression Endocrine/Metabolic: Reports: Diabetes, type II Hematologic: Reports: Bleeding Disorder - Tobacco Use Smoking Status *Q: Former Smoker Used Tobacco, but Quit: No - Caffeine Use Caffeine Use: Reports: Coffee, Soda, Tea Caffeine Use Comment: very rarely - Recreational Drug Use Recreational Drug Use: No - Living Situation & Occupation Living situation: Reports: Occupation: Employed ED ROS GENERAL - Review of Systems Review Of Systems: See Below Constitutional: Reports: Chills, Malaise, Weakness, Decreased Appetite. Denies : Fever HEENT: Reports: No Symptoms Respiratory: Denies: Shortness of Breath Cardiovascular: Denies: Chest Pain GI/Abdominal: Reports: Diarrhea. Denies: Abdominal Pain, Nausea, Vomiting : Reports: No Symptoms Skin: Reports: No Symptoms Neurological: Reports: Dizziness, Other (Intermittent double vision) Psychiatric: Reports: Depression ED EXAM, GENERAL - Physical Exam Exam: See Below Exam Limited By: No Limitations General Appearance: Alert, No Apparent Distress Eye Exam: Bilateral Eye: Normal Inspection, PERRL Neck: Supple Respiratory/Chest: No Respiratory Distress, Lungs Clear Cardiovascular: Regular Rate, Rhythm Neurological: Alert, Oriented, Normal Reflexes Psychiatric: Depressed Mood, Flat Affect Skin Exam: Warm, Dry Course - Vital Signs Last Recorded V/S: Last Vital Signs Temp 97.5 F 04/15/19 02:38 Pulse 89 04/15/19 02:38 Resp 20 04/15/19 02:38 BP 117/68 04/15/19 02:38 Pulse Ox 97 04/15/19 02:38 - Orders/Labs/Meds Labs: Laboratory Tests 04/15/19 04/15/19 04/15/19 Range/Units 02:58 02:58 02:58 WBC 5.5 (4.5-11.0) K/uL RBC 3.99 (3.30-5.50) M/uL Hgb 13.3 (12.0-15.0) g/dL Hct 40.3 (36.0-48.0) % MCV 101 H (80-98) fL MCH 33 H (27-31) pg MCHC 33 (32-36) % Plt Count 263 (150-400) K/uL Neut % (Auto) 24 L (36-66) % Lymph % (Auto) 56 H (24-44) % [place] % (Auto) 14 H (2-6) % Eos % (Auto) 5 H (2-4) % Baso % (Auto) 1 (0-1) % Sodium 144 (140-148) mmol/L Potassium 3.9 (3.6-5.2) mmol/L Chloride 109 H (100-108) mmol/L Carbon Dioxide 28 (21-32) mmol/L Anion Gap 10.9 (5.0-14.0) mmol/L BUN 13 D (7-18) mg/dL Creatinine 0.9 (0.6-1.0) mg/dL Est Cr Clr Drug Dosing 66.37 mL/min Estimated GFR (MDRD) > 60 (>60) Glucose 94 (74-106) mg/dL Calcium 8.2 L (8.5-10.1) mg/dL Ethyl Alcohol 230 mg/dL - Re-Assessments/Exams Free Text/Narrative Re-Assessment/Exam: 04/15/19 03:00 CBC, BMP and EtOH were obtained. 04/15/19 03:42 CBC and BMP were reassuring, potassium 3.9. EtOH was 0.230, patient then explains she only had "2 cocktails". She was reassured about her electrolyte levels. Departure - Departure Time of Disposition: 03:49 Disposition: Home, Self-Care 01 Clinical Impression: Weakness Alcohol intoxication Qualifiers: Complication of substance-induced condition: uncomplicated Qualified Code(s): F10.920 - Alcohol use, unspecified with intoxication, uncomplicated - Discharge Information Instructions: Weakness Referrals: Paula Payne CNM [Primary Care Provider] - Forms: ED Department Discharge Care Plan Goals: Avoid alcohol for the next several days and see if you don't feel better. Recheck with your regular doctor if not improving satisfactorily in the next 5- 10 days.
== END 2019-04-15 03:48 | disposition home or self-care (01) ==
LOC: JP.ED 02:30
DX: F10.120 Alcohol abuse with intoxication, uncomplicated (principal); Y90.8 Blood alcohol level of 240 mg/100 ml or more; E78.00 Pure hypercholesterolemia, unspecified; F41.9 Anxiety disorder, unspecified; F32.9 Major depressive disorder, single episode, unspecified; Z79.01 Long term (current) use of anticoagulants; Z79.899 Other long term (current) drug therapy; Z88.2 Allergy status to sulfonamides; Z88.8 Allergy status to other drugs, medicaments and biological substances
CPT/HCPCS: 36415; 80048; 85025; 99283; G0480; 99282

== ENCOUNTER 2019-06-08 16:45 | Inpatient (IN) | payer MEDICAID, MEDICARE ==
[2019-06-08] MEDS ORDERED: Sodium Chloride 0.9% 10 ML Syringe FLUSH PRN ×2 (16:48→18:54)
[2019-06-08] MEDS ORDERED: Etomidate 2 MG/ML 10 ML SDV IVPUSH ONE (16:55)
[2019-06-08] MEDS ORDERED: Rocuronium 50 MG/5 ML Vial IV ONE (16:56)
[2019-06-08] MEDS ORDERED: Sodium Chloride 0.9% 1,000 ML IV SCH (17:00)
[2019-06-08] MEDS ORDERED: Rocuronium 50 MG/5 ML Vial ONE ×2 (17:03→17:05)
--- NOTE | 2019-06-08 17:26 | EDM.PDOC ---
ED HPI GENERAL MEDICAL PROBLEM - General Chief Complaint: Drug or Alcohol Abuse Stated Complaint: [facility] Time Seen by Provider: 06/08/19 16:48 Source of Information: Reports: EMS, RN Notes Reviewed History Limitations: Reports: Other (Obtunded) - History of Present Illness INITIAL COMMENTS - FREE TEXT/NARRATIVE: 38-year-old female presents emergency department today via EMS services with suicidal attempt. 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 - Related Data Allergies Allergy/AdvReac Type Severity Reaction Status Date / Time duloxetine [From Cymbalta] Allergy Other Verified 09/06/18 14:12 Sulfa (Sulfonamide Allergy Hives Verified 09/06/18 14:12 Antibiotics) Home Meds: Home Meds Metoprolol Succinate 50 mg PO DAILY 06/02/17 [History] FLUoxetine HCl [Prozac] 20 mg PO DAILY 03/17/18 [History] traZODone 100 mg PO BEDTIME 03/17/18 [History] LORazepam 0.5 mg PO BID PRN 09/06/18 [History] Ondansetron [Zofran ODT] 4 mg PO ASDIRECTED 04/15/19 [History] Topiramate [Topamax] 100 mg PO BID 04/15/19 [History] hydroCHLOROthiazide [Hydrochlorothiazide] 12.5 mg PO ASDIRECTED 04/15/19 [ History] Past Medical History HEENT History: Reports: Other (See Below) Other HEENT History: Pseudotumor cerebri. MRI completed 01/2016 with negative results. 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: Right ovarian cyst with removal, IUD Neurological History: Reports: Migraines Other Neuro History: pseudo tumor Psychiatric History: Reports: Addiction, Anxiety, Depression, Suicide Attempt, Suicidal Ideation, Other (See Below) Other Psychiatric History: alcohol Hematologic History: Reports: Anticoagulation Therapy Dermatologic History: Reports: Other (See Below) Other Dermatologic History: rash on back and mid chest - Infectious Disease History Infectious Disease History: Reports: Chicken Pox - Past Surgical History Head Surgeries/Procedures: Reports: None Cardiovascular Surgical History: Reports: Cardiac Ablation GI Surgical History: Reports: EGD Social & Family History - Family History Cardiac: Reports: Hypertension, Syncope Psychiatric: Reports: Anxiety, Depression Endocrine/Metabolic: Reports: Diabetes, type II Hematologic: Reports: Bleeding Disorder - Caffeine Use Caffeine Use: Reports: Coffee, Soda, Tea Caffeine Use Comment: very rarely - Living Situation & Occupation Living situation: Reports: Occupation: Employed ED ROS GENERAL - Review of Systems Review Of Systems: Unable To Obtain ED EXAM, GENERAL - Physical Exam Exam: See Below Exam Limited By: Other (Obtunded GCS of 3) General Appearance: Obtunded Eye Exam: Bilateral Eye: PERRL (Pinpoint minimally reactive but equal) Ears: Normal External Exam, Normal Canal, Hearing Grossly Normal, Normal TMs Throat/Mouth: Normal Inspection (All), Normal Lips, Normal Teeth, Normal Gums, Normal Oropharynx Head: Atraumatic, Normocephalic Neck: Normal Inspection, Supple, Non-Tender, Full Range of Motion Respiratory/Chest: Lungs Clear, Normal Breath Sounds Cardiovascular: Regular Rate, Rhythm, No Murmur GI/Abdominal: Soft Neurological: Unresponsive ED GENERAL MEDICAL PROCEDURES - Endotracheal Intubation Time of Intubation: 17:12 ET Intubation Indication: Airway Protection Preparation: Suction, Balloon Tested, BVM Set Up, Difficult Airway Equip Pre-Oxygenation: Assisted with BVM, 100% FiO2 Anesthesia Meds: Etomidate, Rocuronium Placement: Orotracheal, Cuffed, Uncomplicated Placement Cords Visualized: Yes ETT Size In mm: 6 Number of Attempts: 1 Confirmed By: CO2 Indicator, Bilateral Breath Sounds Tube Secured By: By RN Endotracheal Intubation 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 The head of bed was at 0 degrees. Position, Pretreatment, Induction, and Paralysis: After pre-oxygenation the patient was placed in the supine sniffing position. The following medications were administered intravenously: 24 mg of etomidate with 80 mg of Zak running Protection: Sellick's maneuver was not performed. Bag-mask ventilation was easy. Placement and Proof: Indirect laryngoscopy was performed with a glide scope GVL 3. After placement of the glide scope blade into the oropharynx a large amount of saliva was present, suction was used to evacuate the posterior pharynx, next the blade was placed in the vallecula with gentle upward pressure the vocal cords were easily visualized. The ET tube with the glide scope stylette was then passed through the vocal cords to approximately 24 cm the tube was then secured by nursing staff. Tracheal placement of the tube was confirmed by auscultation and colorimetric change. The total number of attempts at laryngoscopy (direct and indirect) was 1. The tube was secured at 24 cm at the teeth/gums. CXR for tube tube placement approximately 4 cm above the bisi official read radiologist pending. Complications: None apparent Course - Vital Signs Last Recorded V/S: Last Vital Signs Temp 95.9 F 06/08/19 17:02 Pulse 73 06/08/19 17:02 Resp 16 06/08/19 17:02 BP 94/47 L 06/08/19 17:02 Pulse Ox 99 06/08/19 17:02 - Orders/Labs/Meds Orders: Active Orders 24 hr Category Date Time Status EKG Documentation Completion [RC] ASDIRECTED Care 06/08/19 16:49 Ordered Peripheral IV Care [RC] . DIRECTED Care 06/08/19 16:49 Ordered Chest 1V Frontal [CR] Urgent Exams 06/08/19 17:17 Ordered ABG [BLOOD GAS ARTERIAL] [BG] Stat Lab 06/08/19 17:27 Ordered ACETAMINOPHEN [CHEM] Urgent Lab 06/08/19 16:48 Ordered COMPREHENSIVE METABOLIC PN,CMP [CHEM] Urgent Lab 06/08/19 16:48 Ordered DRUG SCREEN, URINE [URCHEM] Stat Lab 06/08/19 16:50 Ordered SALICYLATE [CHEM] Urgent Lab 06/08/19 16:48 Ordered UA W/MICROSCOPIC [URIN] Urgent Lab 06/08/19 16:50 Ordered Norepinephrine 4 MG in D5W @ 2 MCG/MIN(250ml) Med 06/08/19 17:30 Ordered Norepinephrine [Levophed] 4 mg Dextrose 5% in Water 246 ml IV TITRATE Potassium Chloride [KCL 20 MEQ in Water 100 ML] 20 meq Med 06/08/19 17:35 Ordered Premix Bag 1 bag IV ONETIME Sodium Chloride 0.9% @ 125 MLS/HR (1000ml) Med 06/08/19 17:00 Ordered Sodium Chloride 0.9% [Normal Saline] 1,000 ml IV ASDIRECTED Sodium Chloride 0.9% [Saline Flush] Med 06/08/19 16:48 Ordered 10 ml FLUSH ASDIRECTED PRN ED Rapid Sequence Intubation Reflex [OM.PC] Click to Oth 06/08/19 16:48 Ordered Edit Peripheral IV Insertion Adult [OM.PC] Urgent Oth 06/08/19 16:48 Ordered EKG 12 Lead [EK] Stat Ther 06/08/19 16:49 Ordered Medication Orders Sodium Chloride (Normal Saline) 1,000 mls @ 125 mls/hr IV ASDIRECTED SANDRA Last Admin: 06/08/19 17:32 Dose: 125 mls/hr Norepinephrine Bitartrate 4 mg (/ Dextrose/Water) 250 mls @ 7.5 mls/hr IV TITRATE SANDRA; Protocol Sodium Chloride (Saline Flush) 10 ml FLUSH ASDIRECTED PRN PRN Reason: Keep Vein Open Labs: Laboratory Tests 06/08/19 06/08/19 Range/Units 17:00 17:00 WBC 6.2 (4.5-11.0) K/uL RBC 3.70 (3.30-5.50) M/uL Hgb 12.3 (12.0-15.0) g/dL Hct 37.0 (36.0-48.0) % MCV 100 H (80-98) fL MCH 33 H (27-31) pg MCHC 33 (32-36) % Plt Count 291 (150-400) K/uL Neut % (Auto) 44 (36-66) % Lymph % (Auto) 44 (24-44) % [place] % (Auto) 8 H (2-6) % Eos % (Auto) 4 (2-4) % Baso % (Auto) 0 (0-1) % Ethyl Alcohol 226 mg/dL Meds: Medications Generic Name Dose Route Start Last Admin Trade Name Freq PRN Reason Stop Dose Admin Sodium Chloride 1,000 mls @ 125 mls/hr 06/08/19 17:00 06/08/19 17:32 Normal Saline IV 125 mls/hr ASDIRECTED SANDRA Administration Norepinephrine Bitartrate 4 mg 250 mls @ 7.5 mls/hr 06/08/19 17:30 / Dextrose/Water IV TITRATE SANDRA Protocol 2 MCG/MIN Sodium Chloride 10 ml 06/08/19 16:48 Saline Flush FLUSH ASDIRECTED PRN Keep Vein Open Discontinued Medications Generic Name Dose Route Start Last Admin Trade Name Freq PRN Reason Stop Dose Admin Etomidate 24 mg 06/08/19 16:55 06/08/19 17:32 Amidate IVPUSH 06/08/19 16:56 24 mg ONETIME ONE Administration Rocuronium [place] Confirm 06/08/19 17:03 06/08/19 17:33 Zemuron Administered 06/08/19 17:04 Not Given Dose 50 mg .ROUTE .STK-MED ONE Rocuronium [place] Confirm 06/08/19 17:05 06/08/19 17:33 Zemuron Administered 06/08/19 17:06 Not Given Dose 50 mg .ROUTE .STK-MED ONE Rocuronium [place] 80 mg 06/08/19 16:56 06/08/19 17:33 Zemuron IV 06/08/19 16:57 80 mg ONETIME ONE Administration Departure - Departure Time of Disposition: 17:39 Disposition: Admitted As Inpatient 65 Condition: Fair Clinical Impression: Intubation of airway performed without difficulty, Suicide attempt Drug overdose, intentional Qualifiers: Encounter type: initial encounter Qualified Code(s): T50.902A - Poisoning by unspecified drugs, medicaments and biological substances, intentional self-harm , initial encounter - Discharge Information Referrals: PCP,None [Primary Care Provider] - Forms: ED Department Discharge - My Orders Last 24 Hours: My Active Orders 06/08/19 16:48 ACETAMINOPHEN [CHEM] Urgent COMPREHENSIVE METABOLIC PN,CMP [CHEM] Urgent SALICYLATE [CHEM] Urgent Sodium Chloride 0.9% [Saline Flush] 10 ml FLUSH ASDIRECTED PRN ED Rapid Sequence Intubation Reflex [OM.PC] Click to Edit Peripheral IV Insertion Adult [OM.PC] Urgent 06/08/19 16:49 EKG Documentation Completion [RC] ASDIRECTED Peripheral IV Care [RC] . DIRECTED EKG 12 Lead [EK] Stat 06/08/19 16:50 DRUG SCREEN, URINE [URCHEM] Stat UA W/MICROSCOPIC [URIN] Urgent 06/08/19 17:00 Sodium Chloride 0.9% @ 125 MLS/HR (1000ml) Sodium Chloride 0.9% [Normal Saline] 1,000 ml IV ASDIRECTED 06/08/19 17:17 Chest 1V Frontal [CR] Urgent 06/08/19 17:27 ABG [BLOOD GAS ARTERIAL] [BG] Stat 06/08/19 17:30 Norepinephrine 4 MG in D5W @ 2 MCG/MIN(250ml) Norepinephrine [Levophed] 4 mg Dextrose 5% in Water 246 ml IV TITRATE 06/08/19 17:35 Potassium Chloride [KCL 20 MEQ in Water 100 ML] 20 meq Premix Bag 1 bag IV ONETIME - Assessment/Plan Last 24 Hours: My Active Orders 06/08/19 16:48 ACETAMINOPHEN [CHEM] Urgent COMPREHENSIVE METABOLIC PN,CMP [CHEM] Urgent SALICYLATE [CHEM] Urgent Sodium Chloride 0.9% [Saline Flush] 10 ml FLUSH ASDIRECTED PRN ED Rapid Sequence Intubation Reflex [OM.PC] Click to Edit Peripheral IV Insertion Adult [OM.PC] Urgent 06/08/19 16:49 EKG Documentation Completion [RC] ASDIRECTED Peripheral IV Care [RC] . DIRECTED EKG 12 Lead [EK] Stat 06/08/19 16:50 DRUG SCREEN, URINE [URCHEM] Stat UA W/MICROSCOPIC [URIN] Urgent 06/08/19 17:00 Sodium Chloride 0.9% @ 125 MLS/HR (1000ml) Sodium Chloride 0.9% [Normal Saline] 1,000 ml IV ASDIRECTED 06/08/19 17:17 Chest 1V Frontal [CR] Urgent 06/08/19 17:27 ABG [BLOOD GAS ARTERIAL] [BG] Stat 06/08/19 17:30 Norepinephrine 4 MG in D5W @ 2 MCG/MIN(250ml) Norepinephrine [Levophed] 4 mg Dextrose 5% in Water 246 ml IV TITRATE 06/08/19 17:35 Potassium Chloride [KCL 20 MEQ in Water 100 ML] 20 meq Premix Bag 1 bag IV ONETIME Plan: Assessment Acuity = acute Site and laterality = drug overdose with a GCS of 3 requiring intubation for airway protection Etiology = history of suicidal attempts in the past Manifestations = none Location of injury = Home Lab values = CBC is unremarkable, remainder of lab work is pending Plan Called discussed case with hospitalist on-call at 1600 he agreed to come and evaluate the patient in the hospital for admission plan is no sedation when she arouses will extubate then get psychiatric evaluation and placement This note was dictated using [employer] voice recognition software please call with any questions on syntax or grammar.
[2019-06-08] MEDS ORDERED: Norepinephrine 4 MG in Dextrose 5% in Water 246 ML IV SCH ×2 (17:30)
[2019-06-08 17:31] LABS: ACETAMINOPHEN 2.3 ug/mL (10.0-30.0)
[2019-06-08] MEDS ORDERED: Potassium Chloride 20 MEQ in Premix Bag 1 BAG IV ONE (17:35)
--- NOTE | 2019-06-08 17:54 | CRLCR ---
INDICATION: Overdose, post intubation TECHNIQUE: Single supine frontal view of the chest. COMPARISON: Chest two views 07/14/2017 FINDINGS/IMPRESSION: Endotracheal tube tip lies 3.3 cm above the bisi. Prominence of the cardiac silhouette and interstitial markings likely relates to supine position and suboptimal inspiration. Dictated by Chris Saldana MD @ Jun 08 2019 5:50PM Signed by Dr. Chris Saldana @ Jun 08 2019 5:52PM
[2019-06-08] MEDS ORDERED: Albuterol 0.083% 2.5 MG/3 ML Neb Soln NEB PRN (18:54)
[2019-06-08] MEDS ORDERED: Potassium Chloride Riders 40 MEQ in Premix Bag 1 BAG IV ONE (18:54)
[2019-06-08] MEDS ORDERED: Ondansetron 4 MG/2 ML SDV IV PRN (18:54)
--- NOTE | 2019-06-08 19:05 | PCM.HP.2 ---
H&P History of Present Illness - General Date of Service: 06/08/19 Admit Problem/Dx: Admission Diagnosis/Problem Admission Diagnosis/Problem Drug overdose - suicide Source of Information: Family, Old Records, Provider History Limitations: Reports: Altered Mental Status - History of Present Illness Initial Comments - Free Text/Narative: Ms. Corona is a 38-year-old woman who was admitted through the emergency department was fairly decreased level of consciousness and hypercapnic respiratory failure secondary to alcohol intoxication and drug overdose of multiple medications in an apparent suicide attempt. She had an drinking this morning, boyfriend reports that she drinks daily. She was upset with her boyfriend and took overdose of medications including lorazepam, metoprolol, and clonidine. She has a known in long-standing history of depression and anxiety. Previous admission to this facility approximately 18 months ago with apparent suicide attempt secondary to carbon monoxide poisoning. While in the emergency department she was found to have a Karlie Coma Scale of 3 and apparent respiratory depression. She has been intubated in the currently is on mechanical ventilation. Urine drug screen is still pending, alcohol level was 226. Blood gases obtained shortly after intubation showed evidence of severe respiratory acidosis and hypercapnia. She is unable to provide a meaningful history concerning symptoms or review of systems secondary to marked decreased level of consciousness - Related Data Allergies/Adverse Reactions: Allergies Allergy/AdvReac Type Severity Reaction Status Date / Time duloxetine [From Cymbalta] Allergy Other Verified 09/06/18 14:12 Sulfa (Sulfonamide Allergy Hives Verified 09/06/18 14:12 Antibiotics) Home Medications: Home Meds Metoprolol Succinate 50 mg PO DAILY 06/02/17 [History] FLUoxetine HCl [Prozac] 20 mg PO DAILY 03/17/18 [History] traZODone 100 mg PO BEDTIME 03/17/18 [History] LORazepam 0.5 mg PO BID PRN 09/06/18 [History] Ondansetron [Zofran ODT] 4 mg PO ASDIRECTED 04/15/19 [History] Topiramate [Topamax] 100 mg PO BID 04/15/19 [History] hydroCHLOROthiazide [Hydrochlorothiazide] 12.5 mg PO ASDIRECTED 04/15/19 [ History] Past Medical History HEENT History: Reports: Other (See Below) Other HEENT History: Pseudotumor cerebri. MRI completed 01/2016 with negative results. 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: Reports: Other OB/BYN History: Right ovarian cyst with removal, IUD Neurological History: Reports: Migraines Other Neuro History: pseudo tumor Psychiatric History: Reports: Addiction, Anxiety, Depression, Suicide Attempt, Suicidal Ideation, Other (See Below) Other Psychiatric History: alcohol Hematologic History: Reports: Anticoagulation Therapy Dermatologic History: Reports: Other (See Below) Other Dermatologic History: rash on back and mid chest - Infectious Disease History Infectious Disease History: Reports: Chicken Pox - Past Surgical History Head Surgeries/Procedures: Reports: None Cardiovascular Surgical History: Reports: Cardiac Ablation GI Surgical History: Reports: EGD Social & Family History - Family History Cardiac: Reports: Hypertension, Syncope Psychiatric: Reports: Anxiety, Depression Endocrine/Metabolic: Reports: Diabetes, type II Hematologic: Reports: Bleeding Disorder - Tobacco Use Smoking Status *Q: Unknown Ever Smoked - Caffeine Use Caffeine Use: Reports: Coffee, Soda, Tea Caffeine Use Comment: very rarely - Recreational Drug Use Other Recreational Drug Type: unknown - Living Situation & Occupation Living situation: Reports: Occupation: Employed H&P Review of Systems - Review of Systems: Review Of Systems: Unable To Obtain (Obtunded) Exam - Exam Exam: See Below - Vital Signs Vital Signs: Last Vital Signs Temp 35.1 F L 06/08/19 18:21 Pulse 73 06/08/19 18:21 Resp 14 06/08/19 18:21 BP 121/85 06/08/19 18:21 Pulse Ox 100 06/08/19 18:21 Weight: 180 lb - Exam Quality Assessment: Supplemental Oxygen (Ventilator), DVT Prophylaxis General: Sedated, Obtunded. No: Alert, Oriented HEENT: Conjunctiva Clear, Hearing Intact, Mucosa Moist & [place], Normal Nasal Septum, Posterior Pharynx Clear, Pupils Equal, Pupils Reactive Neck: Supple, Trachea Midline, +2 Carotid Pulse wo Bruit Lungs: Clear to Auscultation, Normal Respiratory Effort Cardiovascular: Regular Rate, Regular Rhythm, Normal S1, Normal S2. No: Systolic Murmur, Diastolic Murmur GI/Abdominal Exam: Soft, Non-Tender, No Organomegaly, No Distention Extremities: Non-Tender, No Pedal Edema Skin: Warm, Dry, Intact - Patient Data Lab Results Last 24 hrs: Laboratory Results - last 24 hr 06/08/19 06/08/19 06/08/19 Range/Units 17:00 17:00 17:00 WBC 6.2 (4.5-11.0) K/uL RBC 3.70 (3.30-5.50) M/uL Hgb 12.3 (12.0-15.0) g/dL Hct 37.0 (36.0-48.0) % MCV 100 H (80-98) fL MCH 33 H (27-31) pg MCHC 33 (32-36) % Plt Count 291 (150-400) K/uL Neut % (Auto) 44 (36-66) % Lymph % (Auto) 44 (24-44) % [place] % (Auto) 8 H (2-6) % Eos % (Auto) 4 (2-4) % Baso % (Auto) 0 (0-1) % Puncture Site ABG pH (7.350-7.450) ABG pCO2 (35.0-42.0) mmHg ABG pO2 (75.0-100.0) mmHg ABG HCO3 (22.0-26.0) mmol/L ABG Total CO2 (21.0-25.0) mmol/L ABG O2 Saturation (95.0-98.0) % ABG O2 Content (15.0-23.0) %vol ABG Base Excess mm/L ABG Hemoglobin (12.0-16.0) g/dL ABG Oxyhemoglobin % ABG Carboxyhemoglobin (0.0-1.6) % ABG Methemoglobin % Silas Test O2 Delivery Device Sodium 141 (140-148) mmol/L Potassium 2.9 L* (3.6-5.2) mmol/L Chloride 104 (100-108) mmol/L Carbon Dioxide 27 (21-32) mmol/L Anion Gap 12.9 (5.0-14.0) mmol/L BUN 4 L D (7-18) mg/dL Creatinine 0.7 (0.6-1.0) mg/dL Est Cr Clr Drug Dosing 101.01 mL/min Estimated GFR (MDRD) > 60 (>60) Glucose 132 H (74-106) mg/dL Calcium 7.7 L (8.5-10.1) mg/dL Total Bilirubin 0.2 (0.2-1.0) mg/dL AST 27 D (15-37) U/L ALT 29 (12-78) U/L Alkaline Phosphatase 107 (46-116) U/L Total Protein 6.0 L (6.4-8.2) g/dL Albumin 2.7 L (3.4-5.0) g/dL Globulin 3.3 (2.3-3.5) g/dL Albumin/Globulin Ratio 0.8 L (1.2-2.2) Salicylates 1.8 L (2.0-20.0) mg/dL Acetaminophen 2.3 L (10.0-30.0) ug/mL Ethyl Alcohol mg/dL 06/08/19 06/08/19 Range/Units 17:00 17:27 WBC (4.5-11.0) K/uL RBC (3.30-5.50) M/uL Hgb (12.0-15.0) g/dL Hct (36.0-48.0) % MCV (80-98) fL MCH (27-31) pg MCHC (32-36) % Plt Count (150-400) K/uL Neut % (Auto) (36-66) % Lymph % (Auto) (24-44) % [place] % (Auto) (2-6) % Eos % (Auto) (2-4) % Baso % (Auto) (0-1) % Puncture Site Rt radial ABG pH 7.186 L* (7.350-7.450) ABG pCO2 66.4 H (35.0-42.0) mmHg ABG pO2 333.0 H (75.0-100.0) mmHg ABG HCO3 24.2 (22.0-26.0) mmol/L ABG Total CO2 22.8 (21.0-25.0) mmol/L ABG O2 Saturation 99.1 H (95.0-98.0) % ABG O2 Content 18.4 (15.0-23.0) %vol ABG Base Excess -5.0 mm/L ABG Hemoglobin 13.0 (12.0-16.0) g/dL ABG Oxyhemoglobin 96.4 % ABG Carboxyhemoglobin 2.1 H (0.0-1.6) % ABG Methemoglobin 0.6 % Silas Test Passed O2 Delivery Device Resuscitation bag Sodium (140-148) mmol/L Potassium (3.6-5.2) mmol/L Chloride (100-108) mmol/L Carbon Dioxide (21-32) mmol/L Anion Gap (5.0-14.0) mmol/L BUN (7-18) mg/dL Creatinine (0.6-1.0) mg/dL Est Cr Clr Drug Dosing mL/min Estimated GFR (MDRD) (>60) Glucose (74-106) mg/dL Calcium (8.5-10.1) mg/dL Total Bilirubin (0.2-1.0) mg/dL AST (15-37) U/L ALT (12-78) U/L Alkaline Phosphatase (46-116) U/L Total Protein (6.4-8.2) g/dL Albumin (3.4-5.0) g/dL Globulin (2.3-3.5) g/dL Albumin/Globulin Ratio (1.2-2.2) Salicylates (2.0-20.0) mg/dL Acetaminophen (10.0-30.0) ug/mL Ethyl Alcohol 226 mg/dL Result Diagrams: 06/08/19 17:00 06/08/19 17:00 *Q Meaningful Use (ADM) - VTE Risk Assess *Q Each Risk Factor Represents 1 Point: Obesity ( BMI > 25 kg/m2) Total Score 1 Point Risk Factors: 1 Each Risk Factor Represents 2 Points: None Total Score 2 Point Risk Factors: 0 Each Risk Factor Represents 3 Points: None Total Score 3 Point Risk Factors: 0 Each Risk Factor Represents 5 Points: None Total Score 5 Point Risk Factors: 0 Venous Thromboembolism Risk Factor Score *Q: 1 Problem List Initiated/Reviewed/Updated: Yes Orders Last 24hrs: Active Orders 24 hr Category Date Time Status Patient Status [ADT] Routine ADT 06/08/19 18:54 Active Cardiac Monitoring [RC] .As Directed Care 06/08/19 18:54 Active Height and Weight [RC] DAILY Care 06/08/19 18:54 Active Insert Urinary Catheter [OM.PC] Stat Care 06/08/19 17:00 Ordered Intake and Output [RC] QSHIFT Care 06/08/19 18:54 Active Mechanical Ventilation [RT Ventilator, Adult] [RC] Care 06/08/19 18:54 Active ASDIRECTED Nasogastric Tube Management [Gastrointestinal Tube Mgmt Care 06/08/19 18:18 Active ] [RC] ASDIRECTED Notify Provider Vital Signs [RC] ASDIRECTED Care 06/08/19 18:54 Active Oxygen Therapy [RC] PRN Care 06/08/19 18:54 Active Peripheral IV Care [RC] . DIRECTED Care 06/08/19 18:54 Active Pulse Oximetry [RC] CONTINUOUS Care 06/08/19 18:54 Active RT Aerosol Therapy [RC] ASDIRECTED Care 06/08/19 18:54 Active Up to Chair [RC] QID Care 06/08/19 18:54 Active Urinary Catheter Assessment [RC] ASDIRECTED Care 06/08/19 18:15 Active VTE/DVT Education [RC] Per Unit Routine Care 06/08/19 18:54 Active Vital Signs [RC] Q4H Care 06/08/19 18:54 Active Nothing per Oral Now Diet [DIET] Diet 06/08/19 Dinner Active ACETAMINOPHEN [CHEM] Stat Lab 06/08/19 20:00 Ordered BLOOD GAS ARTERIAL [BG] Stat Lab 06/08/19 19:00 Ordered DRUG SCREEN, URINE [URCHEM] Stat Lab 06/08/19 17:26 Ordered HCG QUALITATIVE,SERUM [CHEM] Routine Lab 06/08/19 18:54 Ordered POTASSIUM,K [CHEM] AM Lab 06/09/19 05:11 Ordered POTASSIUM,K [CHEM] Stat Lab 06/08/19 23:00 Ordered UA W/MICROSCOPIC [URIN] Urgent Lab 06/08/19 17:26 Ordered Albuterol [Proventil Neb Soln] Med 06/08/19 18:54 Ordered 2.5 mg NEB Q4H PRN Ondansetron [Zofran] Med 06/08/19 18:54 Ordered 4 mg IV Q4H PRN Potassium Chloride Riders [KCL 40 MEQ in Water 100 ML] Med 06/08/19 18:54 Ordered 40 meq Premix Bag 1 bag IV ONETIME Sodium Chloride 0.9% [Normal Saline] 1,000 ml Med 06/08/19 18:54 Ordered IV ASDIRECTED Sodium Chloride 0.9% [Saline Flush] Med 06/08/19 18:54 Ordered 10 ml FLUSH ASDIRECTED PRN Nasogastric Orogastric Tube Insertion [OM.PC] Routine Oth 06/08/19 18:17 Ordered Peripheral IV Insertion Adult [OM.PC] Routine Oth 06/08/19 18:54 Ordered Sequential Compression Device [OM.PC] Per Unit Routine Oth 06/08/19 18:54 Ordered Resuscitation Status Routine Resus Stat 06/08/19 18:42 Ordered EKG 12 Lead [EK] Stat Ther 06/08/19 16:49 Ordered Medication Orders Albuterol (Proventil Neb Soln) 2.5 mg NEB Q4H PRN PRN Reason: Shortness Of Breath/wheezing Potassium Chloride 40 meq/ (Premix) 100 mls @ 25 mls/hr IV ONETIME ONE Stop: 06/08/19 22:53 Sodium Chloride (Normal Saline) 1,000 mls @ 125 mls/hr IV ASDIRECTED SANDRA Ondansetron HCl (Zofran) 4 mg IV Q4H PRN PRN Reason: Nausea/Vomiting Sodium Chloride (Saline Flush) 10 ml FLUSH ASDIRECTED PRN PRN Reason: Keep Vein Open Assessment/Plan Comment:: ASSESSMENT AND PLAN DRUG OVERDOSE/SUICIDE ATTEMPT-history of depression as well as anxiety and previous suicide attempt. Was consuming alcohol this morning and then took a polydrug overdose this afternoon. On arriving in the emergency department was obtunded and found to have a Karlie Coma Scale of 3. She is been intubated and placed on ventilator for management of hypoventilation with hypoxia and hypercapnia. -Extubate from ventilator when fully awake -72 hour hold -Anticipate transfer to inpatient psychiatric facility when medically stable HYPOXIC AND HYPERCAPNIC RESPIRATORY FAILURE-secondary to drug overdose with sedating medication and alcohol intoxication -Intubation and mechanical ventilation HYPOKALEMIA -IV potassium replacement -Recheck potassium level later tonight and in a.m. MAINTENANCE ISSUES -DVT prophylaxis; scuds -GI prophylaxis; not indicated -Dennis catheter; placed in the emergency department, plan to remove in a.m. -Nutrition; nothing by mouth while on ventilator -Nicotine dependence; not required CODE STATUS-FULL CODE ADMISSION STATUS-patient will be admitted to inpatient status, expect at least a 2 night hospital stay for evaluation and management of problems as outlined above. At the time of this admission I do not reasonably expected evaluation and management of this problem will require more than a 96 hour hospital stay. DISPOSITION-anticipate discharge to inpatient psychiatric facility PRIMARY CARE PROVIDER- - Mortality Measure Prognosis:: Good
[2019-06-08] MEDS: Sodium Chloride 0.9% 1,000 ML IV SCH (19:41)
[2019-06-09] MEDS: Sodium Chloride 0.9% 1,000 ML IV SCH (03:39)
--- NOTE | 2019-06-09 09:01 | PCM.PN ---
- General Info Date of Service: 06/09/19 Subjective Update: Ms. Corona has improved since admission, she became alert and interactive during the senior process analyst hours. NG tube and endotracheal tube were removed at that time. She has been hemodynamically stable with no ongoing evidence of respiratory compromise. She continues to report suicidal ideation and intent. Functional Status: Reports: Tolerating Diet - Review of Systems General: Reports: No Symptoms Pulmonary: Reports: No Symptoms Cardiovascular: Reports: No Symptoms Gastrointestinal: Reports: No Symptoms - Patient Data Vitals - Most Recent: Last Vital Signs Temp 97.0 F 06/09/19 07:00 Pulse 79 06/09/19 08:43 Resp 21 H 06/09/19 08:43 BP 121/78 06/09/19 08:43 Pulse Ox 93 L 06/09/19 08:43 Weight - Most Recent: 180 lb I&O - Last 24 Hours: Intake & Output 06/08/19 06/09/19 06/09/19 22:59 06:59 14:59 Intake Total 1600 Output Total 800 Balance 800 Lab Results Last 24 Hours: Laboratory Results - last 24 hr 06/08/19 06/08/19 06/08/19 Range/Units 17:00 17:00 17:00 WBC 6.2 (4.5-11.0) K/uL RBC 3.70 (3.30-5.50) M/uL Hgb 12.3 (12.0-15.0) g/dL Hct 37.0 (36.0-48.0) % MCV 100 H (80-98) fL MCH 33 H (27-31) pg MCHC 33 (32-36) % Plt Count 291 (150-400) K/uL Neut % (Auto) 44 (36-66) % Lymph % (Auto) 44 (24-44) % [place] % (Auto) 8 H (2-6) % Eos % (Auto) 4 (2-4) % Baso % (Auto) 0 (0-1) % Puncture Site ABG pH (7.350-7.450) ABG pCO2 (35.0-42.0) mmHg ABG pO2 (75.0-100.0) mmHg ABG HCO3 (22.0-26.0) mmol/L ABG Total CO2 (21.0-25.0) mmol/L ABG O2 Saturation (95.0-98.0) % ABG O2 Content (15.0-23.0) %vol ABG Base Excess mm/L ABG Hemoglobin (12.0-16.0) g/dL ABG Oxyhemoglobin % ABG Carboxyhemoglobin (0.0-1.6) % ABG Methemoglobin % Silas Test O2 Delivery Device Sodium 141 (140-148) mmol/L Potassium 2.9 L* (3.6-5.2) mmol/L Chloride 104 (100-108) mmol/L Carbon Dioxide 27 (21-32) mmol/L Anion Gap 12.9 (5.0-14.0) mmol/L BUN 4 L D (7-18) mg/dL Creatinine 0.7 (0.6-1.0) mg/dL Est Cr Clr Drug Dosing 101.01 mL/min Estimated GFR (MDRD) > 60 (>60) Glucose 132 H (74-106) mg/dL Calcium 7.7 L (8.5-10.1) mg/dL Total Bilirubin 0.2 (0.2-1.0) mg/dL AST 27 D (15-37) U/L ALT 29 (12-78) U/L Alkaline Phosphatase 107 (46-116) U/L Total Protein 6.0 L (6.4-8.2) g/dL Albumin 2.7 L (3.4-5.0) g/dL Globulin 3.3 (2.3-3.5) g/dL Albumin/Globulin Ratio 0.8 L (1.2-2.2) HCG, Qual Urine Color (YELLOW) Urine Appearance (CLEAR) Urine pH (5.0-8.0) Ur Specific [place] (1.008-1.030) Urine Protein (NEGATIVE) mg/dL Urine Glucose (UA) (NEGATIVE) mg/dL Urine Ketones (NEGATIVE) mg/dL Urine Occult Blood (NEGATIVE) Urine Nitrite (NEGATIVE) Urine Bilirubin (NEGATIVE) Urine Urobilinogen (0.2-1.0) EU/dL Ur Leukocyte Esterase (NEGATIVE) Urine RBC (0-5) Urine WBC (0-5) Ur Epithelial Cells Amorphous Sediment Urine Bacteria Urine Mucus Salicylates 1.8 L (2.0-20.0) mg/dL Urine Opiates Screen (NEGATIVE) Ur Oxycodone Screen (NEGATIVE) Urine Methadone Screen (NEGATIVE) Ur Propoxyphene Screen (NEGATIVE) Acetaminophen 2.3 L (10.0-30.0) ug/mL Ur Barbiturates Screen (NEGATIVE) Ur Tricyclics Screen (NEGATIVE) Ur Phencyclidine Scrn (NEGATIVE) Ur Amphetamine Screen (NEGATIVE) U Methamphetamines Scrn (NEGATIVE) Urine MDMA Screen (NEGATIVE) U Benzodiazepines Scrn (NEGATIVE) U Cocaine Metab Screen (NEGATIVE) U Marijuana (THC) Screen (NEGATIVE) Ethyl Alcohol mg/dL 06/08/19 06/08/19 06/08/19 Range/Units 17:00 17:26 17:26 WBC (4.5-11.0) K/uL RBC (3.30-5.50) M/uL Hgb (12.0-15.0) g/dL Hct (36.0-48.0) % MCV (80-98) fL MCH (27-31) pg MCHC (32-36) % Plt Count (150-400) K/uL Neut % (Auto) (36-66) % Lymph % (Auto) (24-44) % [place] % (Auto) (2-6) % Eos % (Auto) (2-4) % Baso % (Auto) (0-1) % Puncture Site ABG pH (7.350-7.450) ABG pCO2 (35.0-42.0) mmHg ABG pO2 (75.0-100.0) mmHg ABG HCO3 (22.0-26.0) mmol/L ABG Total CO2 (21.0-25.0) mmol/L ABG O2 Saturation (95.0-98.0) % ABG O2 Content (15.0-23.0) %vol ABG Base Excess mm/L ABG Hemoglobin (12.0-16.0) g/dL ABG Oxyhemoglobin % ABG Carboxyhemoglobin (0.0-1.6) % ABG Methemoglobin % Silas Test O2 Delivery Device Sodium (140-148) mmol/L Potassium (3.6-5.2) mmol/L Chloride (100-108) mmol/L Carbon Dioxide (21-32) mmol/L Anion Gap (5.0-14.0) mmol/L BUN (7-18) mg/dL Creatinine (0.6-1.0) mg/dL Est Cr Clr Drug Dosing mL/min Estimated GFR (MDRD) (>60) Glucose (74-106) mg/dL Calcium (8.5-10.1) mg/dL Total Bilirubin (0.2-1.0) mg/dL AST (15-37) U/L ALT (12-78) U/L Alkaline Phosphatase (46-116) U/L Total Protein (6.4-8.2) g/dL Albumin (3.4-5.0) g/dL Globulin (2.3-3.5) g/dL Albumin/Globulin Ratio (1.2-2.2) HCG, Qual Urine Color Yellow (YELLOW) Urine Appearance Clear (CLEAR) Urine pH 7.5 (5.0-8.0) Ur Specific [place] 1.015 (1.008-1.030) Urine Protein Negative (NEGATIVE) mg/dL Urine Glucose (UA) 100 H (NEGATIVE) mg/dL Urine Ketones Negative (NEGATIVE) mg/dL Urine Occult Blood Negative (NEGATIVE) Urine Nitrite Negative (NEGATIVE) Urine Bilirubin Negative (NEGATIVE) Urine Urobilinogen Normal (0.2-1.0) EU/dL Ur Leukocyte Esterase Negative (NEGATIVE) Urine RBC 0-5 (0-5) Urine WBC 0-5 (0-5) Ur Epithelial Cells Rare Amorphous Sediment Few Urine Bacteria Few Urine Mucus Few Salicylates (2.0-20.0) mg/dL Urine Opiates Screen Negative (NEGATIVE) Ur Oxycodone Screen Negative (NEGATIVE) Urine Methadone Screen Negative (NEGATIVE) Ur Propoxyphene Screen Negative (NEGATIVE) Acetaminophen (10.0-30.0) ug/mL Ur Barbiturates Screen Negative (NEGATIVE) Ur Tricyclics Screen Negative (NEGATIVE) Ur Phencyclidine Scrn Negative (NEGATIVE) Ur Amphetamine Screen Negative (NEGATIVE) U Methamphetamines Scrn Negative (NEGATIVE) Urine MDMA Screen Negative (NEGATIVE) U Benzodiazepines Scrn Presumptive positive H (NEGATIVE) U Cocaine Metab Screen Negative (NEGATIVE) U Marijuana (THC) Screen Negative (NEGATIVE) Ethyl Alcohol 226 mg/dL 06/08/19 06/08/19 06/08/19 Range/Units 17:27 18:54 19:00 WBC (4.5-11.0) K/uL RBC (3.30-5.50) M/uL Hgb (12.0-15.0) g/dL Hct (36.0-48.0) % MCV (80-98) fL MCH (27-31) pg MCHC (32-36) % Plt Count (150-400) K/uL Neut % (Auto) (36-66) % Lymph % (Auto) (24-44) % [place] % (Auto) (2-6) % Eos % (Auto) (2-4) % Baso % (Auto) (0-1) % Puncture Site Rt radial Lt radial ABG pH 7.186 L* 7.379 (7.350-7.450) ABG pCO2 66.4 H 39.9 (35.0-42.0) mmHg ABG pO2 333.0 H 110.0 H (75.0-100.0) mmHg ABG HCO3 24.2 23.0 (22.0-26.0) mmol/L ABG Total CO2 22.8 20.8 L (21.0-25.0) mmol/L ABG O2 Saturation 99.1 H 97.7 (95.0-98.0) % ABG O2 Content 18.4 16.6 (15.0-23.0) %vol ABG Base Excess -5.0 -1.4 mm/L ABG Hemoglobin 13.0 12.4 (12.0-16.0) g/dL ABG Oxyhemoglobin 96.4 94.8 % ABG Carboxyhemoglobin 2.1 H 2.2 H (0.0-1.6) % ABG Methemoglobin 0.6 0.8 % Silas Test Passed Passed O2 Delivery Device Resuscitation bag Ventilator Sodium (140-148) mmol/L Potassium (3.6-5.2) mmol/L Chloride (100-108) mmol/L Carbon Dioxide (21-32) mmol/L Anion Gap (5.0-14.0) mmol/L BUN (7-18) mg/dL Creatinine (0.6-1.0) mg/dL Est Cr Clr Drug Dosing mL/min Estimated GFR (MDRD) (>60) Glucose (74-106) mg/dL Calcium (8.5-10.1) mg/dL Total Bilirubin (0.2-1.0) mg/dL AST (15-37) U/L ALT (12-78) U/L Alkaline Phosphatase (46-116) U/L Total Protein (6.4-8.2) g/dL Albumin (3.4-5.0) g/dL Globulin (2.3-3.5) g/dL Albumin/Globulin Ratio (1.2-2.2) HCG, Qual Negative Urine Color (YELLOW) Urine Appearance (CLEAR) Urine pH (5.0-8.0) Ur Specific [place] (1.008-1.030) Urine Protein (NEGATIVE) mg/dL Urine Glucose (UA) (NEGATIVE) mg/dL Urine Ketones (NEGATIVE) mg/dL Urine Occult Blood (NEGATIVE) Urine Nitrite (NEGATIVE) Urine Bilirubin (NEGATIVE) Urine Urobilinogen (0.2-1.0) EU/dL Ur Leukocyte Esterase (NEGATIVE) Urine RBC (0-5) Urine WBC (0-5) Ur Epithelial Cells Amorphous Sediment Urine Bacteria Urine Mucus Salicylates (2.0-20.0) mg/dL Urine Opiates Screen (NEGATIVE) Ur Oxycodone Screen (NEGATIVE) Urine Methadone Screen (NEGATIVE) Ur Propoxyphene Screen (NEGATIVE) Acetaminophen (10.0-30.0) ug/mL Ur Barbiturates Screen (NEGATIVE) Ur Tricyclics Screen (NEGATIVE) Ur Phencyclidine Scrn (NEGATIVE) Ur Amphetamine Screen (NEGATIVE) U Methamphetamines Scrn (NEGATIVE) Urine MDMA Screen (NEGATIVE) U Benzodiazepines Scrn (NEGATIVE) U Cocaine Metab Screen (NEGATIVE) U Marijuana (THC) Screen (NEGATIVE) Ethyl Alcohol mg/dL 06/08/19 06/08/19 06/09/19 Range/Units 20:00 23:00 05:20 WBC (4.5-11.0) K/uL RBC (3.30-5.50) M/uL Hgb (12.0-15.0) g/dL Hct (36.0-48.0) % MCV (80-98) fL MCH (27-31) pg MCHC (32-36) % Plt Count (150-400) K/uL Neut % (Auto) (36-66) % Lymph % (Auto) (24-44) % [place] % (Auto) (2-6) % Eos % (Auto) (2-4) % Baso % (Auto) (0-1) % Puncture Site ABG pH (7.350-7.450) ABG pCO2 (35.0-42.0) mmHg ABG pO2 (75.0-100.0) mmHg ABG HCO3 (22.0-26.0) mmol/L ABG Total CO2 (21.0-25.0) mmol/L ABG O2 Saturation (95.0-98.0) % ABG O2 Content (15.0-23.0) %vol ABG Base Excess mm/L ABG Hemoglobin (12.0-16.0) g/dL ABG Oxyhemoglobin % ABG Carboxyhemoglobin (0.0-1.6) % ABG Methemoglobin % Silas Test O2 Delivery Device Sodium (140-148) mmol/L Potassium 3.7 3.6 (3.6-5.2) mmol/L Chloride (100-108) mmol/L Carbon Dioxide (21-32) mmol/L Anion Gap (5.0-14.0) mmol/L BUN (7-18) mg/dL Creatinine (0.6-1.0) mg/dL Est Cr Clr Drug Dosing mL/min Estimated GFR (MDRD) (>60) Glucose (74-106) mg/dL Calcium (8.5-10.1) mg/dL Total Bilirubin (0.2-1.0) mg/dL AST (15-37) U/L ALT (12-78) U/L Alkaline Phosphatase (46-116) U/L Total Protein (6.4-8.2) g/dL Albumin (3.4-5.0) g/dL Globulin (2.3-3.5) g/dL Albumin/Globulin Ratio (1.2-2.2) HCG, Qual Urine Color (YELLOW) Urine Appearance (CLEAR) Urine pH (5.0-8.0) Ur Specific [place] (1.008-1.030) Urine Protein (NEGATIVE) mg/dL Urine Glucose (UA) (NEGATIVE) mg/dL Urine Ketones (NEGATIVE) mg/dL Urine Occult Blood (NEGATIVE) Urine Nitrite (NEGATIVE) Urine Bilirubin (NEGATIVE) Urine Urobilinogen (0.2-1.0) EU/dL Ur Leukocyte Esterase (NEGATIVE) Urine RBC (0-5) Urine WBC (0-5) Ur Epithelial Cells Amorphous Sediment Urine Bacteria Urine Mucus Salicylates (2.0-20.0) mg/dL Urine Opiates Screen (NEGATIVE) Ur Oxycodone Screen (NEGATIVE) Urine Methadone Screen (NEGATIVE) Ur Propoxyphene Screen (NEGATIVE) Acetaminophen < 2.0 L (10.0-30.0) ug/mL Ur Barbiturates Screen (NEGATIVE) Ur Tricyclics Screen (NEGATIVE) Ur Phencyclidine Scrn (NEGATIVE) Ur Amphetamine Screen (NEGATIVE) U Methamphetamines Scrn (NEGATIVE) Urine MDMA Screen (NEGATIVE) U Benzodiazepines Scrn (NEGATIVE) U Cocaine Metab Screen (NEGATIVE) U Marijuana (THC) Screen (NEGATIVE) Ethyl Alcohol mg/dL Med Orders - Current: Current Medications Albuterol (Proventil Neb Soln) 2.5 mg NEB Q4H PRN PRN Reason: Shortness Of Breath/wheezing Ondansetron HCl (Zofran) 4 mg IV Q4H PRN PRN Reason: Nausea/Vomiting Sodium Chloride (Saline Flush) 10 ml FLUSH ASDIRECTED PRN PRN Reason: Keep Vein Open Discontinued Medications Etomidate (Amidate) 24 mg IVPUSH ONETIME ONE Stop: 06/08/19 16:56 Last Admin: 06/08/19 17:32 Dose: 24 mg Sodium Chloride (Normal Saline) 1,000 mls @ 125 mls/hr IV ASDIRECTED SANDRA Last Admin: 06/08/19 17:32 Dose: 125 mls/hr Norepinephrine Bitartrate 4 mg (/ Dextrose/Water) 250 mls @ 7.5 mls/hr IV TITRATE SANDRA; Protocol Potassium Chloride 20 meq/ (Premix) 100 mls @ 50 mls/hr IV ONETIME ONE Stop: 06/08/19 19:34 Last Admin: 06/09/19 07:36 Dose: Not Given Potassium Chloride 40 meq/ (Premix) 100 mls @ 25 mls/hr IV ONETIME ONE Stop: 06/08/19 22:53 Last Admin: 06/08/19 19:41 Dose: 25 mls/hr Sodium Chloride (Normal Saline) 1,000 mls @ 125 mls/hr IV ASDIRECTED SANDRA Last Admin: 06/09/19 03:39 Dose: 125 mls/hr Rocuronium [place] (Zemuron) Confirm Administered Dose 50 mg .ROUTE .STK-MED ONE Stop: 06/08/19 17:04 Last Admin: 06/08/19 17:33 Dose: Not Given Rocuronium [place] (Zemuron) Confirm Administered Dose 50 mg .ROUTE .STK-MED ONE Stop: 06/08/19 17:06 Last Admin: 06/08/19 17:33 Dose: Not Given Rocuronium [place] (Zemuron) 80 mg IV ONETIME ONE Stop: 06/08/19 16:57 Last Admin: 06/08/19 17:33 Dose: 80 mg Sodium Chloride (Saline Flush) 10 ml FLUSH ASDIRECTED PRN PRN Reason: Keep Vein Open - Exam Quality Assessment: Urine Catheter, DVT Prophylaxis General: Alert, Oriented, Cooperative, Mild Distress Lungs: Clear to Auscultation, Normal Respiratory Effort Cardiovascular: Regular Rate, Regular Rhythm, No Murmurs GI/Abdominal Exam: Soft, Non-Tender, No Organomegaly, No Distention Extremities: Non-Tender, No Pedal Edema Skin: Warm, Dry, Intact - Problem List Review Problem List Initiated/Reviewed/Updated: Yes - My Orders Last 24 Hours: My Active Orders 06/08/19 18:42 Resuscitation Status Routine 06/08/19 18:54 Patient Status [ADT] Routine Cardiac Monitoring [RC] Q6H Height and Weight [RC] DAILY Intake and Output [RC] Q12H Mechanical Ventilation [RT Ventilator, Adult] [RC] ASDIRECTED Notify Provider Vital Signs [RC] ASDIRECTED Oxygen Therapy [RC] PRN Peripheral IV Care [RC] . DIRECTED Pulse Oximetry [RC] CONTINUOUS RT Aerosol Therapy [RC] ASDIRECTED Up to Chair [RC] QID VTE/DVT Education [RC] Per Unit Routine Vital Signs [RC] Q1H Albuterol [Proventil Neb Soln] 2.5 mg NEB Q4H PRN Ondansetron [Zofran] 4 mg IV Q4H PRN Sodium Chloride 0.9% [Saline Flush] 10 ml FLUSH ASDIRECTED PRN Peripheral IV Insertion Adult [OM.PC] Routine Sequential Compression Device [OM.PC] Per Unit Routine 06/09/19 08:53 Convert IV to Saline Lock [OM.PC] Routine Suicide Precautions [OM.PC] Routine 06/09/19 Breakfast Regular Diet [DIET] - Plan Plan:: ASSESSMENT AND PLAN DRUG OVERDOSE/SUICIDE ATTEMPT-history of depression as well as anxiety and previous suicide attempt. She was extubated during the senior process analyst hours when she awoke, respiratory status has been stable since then. Continues to report suicidal ideation and intent. -Medically stable and ready or transfer to inpatient psychiatric facility -72 hour hold -Suicide precautions HYPOXIC AND HYPERCAPNIC RESPIRATORY FAILURE-resolved HYPOKALEMIA-resolved MAINTENANCE ISSUES -DVT prophylaxis; scuds -GI prophylaxis; not indicated -Dennis catheter; remove, no longer indicated -Nutrition; regular diet -Nicotine dependence; not required CODE STATUS-FULL CODE ADMISSION STATUS-patient will be admitted to inpatient status, expect at least a 2 night hospital stay for evaluation and management of problems as outlined above. At the time of this admission I do not reasonably expected evaluation and management of this problem will require more than a 96 hour hospital stay. DISPOSITION-anticipate discharge to inpatient psychiatric facility PRIMARY CARE PROVIDER-
[2019-06-09] MEDS ORDERED: TRIMETHOBENZAMIDE HCL 300 MG PO PRN (09:02)
[2019-06-09] MEDS ORDERED: FLUoxetine 20 MG Cap PO SCH (10:00)
[2019-06-09] MEDS: Potassium Chloride 10 MEQ Cap.ER PO SCH ×2 (10:04→21:03)
[2019-06-09] MEDS ORDERED: Nicotine 21 MG/24 Hr Patch TRDERM SCH (10:45)
--- NOTE | 2019-06-09 15:42 | PCM.DCSUM1 ---
Discharge Summary - Hospital Course Brief History: Ms. Corona is a 38 year old woman who was admitted through the emergency department with decreased level of consciousness and acute hypoxic and hypercapnic respiratory failure secondary to alcohol intoxication and intentional drug overdose with suicide attempt. - Discharge Data Discharge Date: 06/09/19 Discharge Disposition: Home, Self-Care 01 Condition: Good - Discharge Diagnosis/Problem(s) (1) Acute respiratory failure with hypoxia and hypercapnia SNOMED Code(s): 293391334 ICD Code: J96.01 - ACUTE RESPIRATORY FAILURE WITH HYPOXIA; J96.02 - ACUTE RESPIRATORY FAILURE WITH HYPERCAPNIA Status: Acute Current Visit: Yes (2) Suicide attempt SNOMED Code(s): 11589894 ICD Code: T14.91XA - SUICIDE ATTEMPT, INITIAL ENCOUNTER Status: Acute Current Visit: Yes (3) Drug overdose, intentional SNOMED Code(s): 21866153 ICD Code: T50.902A - POISONING BY UNSP DRUG/MEDS/BIOL SUBST, SELF-HARM, INIT Status: Acute Current Visit: Yes Qualifiers: Encounter type: initial encounter Qualified Code(s): T50.902A - Poisoning by unspecified drugs, medicaments and biological substances, intentional self- harm, initial encounter (4) ETOH abuse SNOMED Code(s): 51664757 ICD Code: F10.10 - ALCOHOL ABUSE, UNCOMPLICATED Status: Chronic Current Visit: No - Patient Summary/Data Hospital Course: Ms. Corona is a 38-year-old woman who was admitted through the emergency department with decreased level of consciousness and hypercapnic respiratory failure secondary to alcohol intoxication and drug overdose of multiple medications in an apparent suicide attempt. She had been drinking on the morning of admission, her boyfriend reports that she drinks daily. She was upset with her boyfriend and took overdose of medications including lorazepam, metoprolol, and clonidine. She has a known and long-standing history of depression and anxiety. Previous admission to this facility approximately 18 months ago with apparent suicide attempt secondary to carbon monoxide poisoning. While in the emergency department she was found to have a [place] Coma Scale of 3 and respiratory depression, with hypoxia and hypercapnia. She has been intubated in the currently is on mechanical ventilation. Urine drug screen was found to be positive for benzodiazepines, alcohol level was 226. Blood gases obtained shortly after intubation showed evidence of severe respiratory acidosis and hypercapnia. She was unable to provide a meaningful history concerning symptoms or review of systems secondary to marked decreased level of consciousness. On admission she was continued on mechanical ventilation with intubation until she was fully alert and awake. She was extubated during the print shop assistant hours on the day after admission, NG tube was also removed as well as the Dennis catheter. She received IV fluids for hydration and potassium supplementation for hypokalemia. She was medically stable throughout the day prior to transfer to inpatient psychiatric facility for further evaluation and management. On admission she was placed on a 72 hour hold because of the suicide attempt. She will be transferred to inpatient psychiatric facility for further evaluation and management. She will be transported via psychiatric transport team. Other than the 72 hour hold activity will be as tolerated and she will resume a normal diet. - Patient Instructions Diet: Usual Diet as Tolerated Activity: As Tolerated Activity, Other: 72 hour hold Other/Special Instructions: Transfer to in psych - Discharge Plan *PRESCRIPTION DRUG MONITORING PROGRAM REVIEWED*: Not Applicable *COPY OF PRESCRIPTION DRUG MONITORING REPORT IN PATIENT JULIO CÉSAR: Not Applicable Home Medications: Home Meds Metoprolol Succinate 50 mg PO DAILY 06/02/17 [History] FLUoxetine HCl [Prozac] 20 mg PO DAILY 03/17/18 [History] LORazepam 0.5 mg PO BID PRN 09/06/18 [History] Ondansetron [Zofran ODT] 4 mg PO Q8H PRN 04/15/19 [History] Cyclobenzaprine HCl 10 mg PO TID PRN 06/08/19 [History] Levonorgestrel [Liletta] 06/08/19 [History] Potassium Chloride 10 meq PO BID 06/08/19 [History] Topiramate 75 mg PO BID 06/08/19 [History] Trimethobenzamide HCl 300 mg PO TID PRN 06/08/19 [History] - Discharge Summary/Plan Comment DC Time >30 min.: No - Patient Data Vitals - Most Recent: Last Vital Signs Temp 97.0 F 06/09/19 07:00 Pulse 82 06/09/19 15:00 Resp 21 H 06/09/19 08:43 BP 121/78 06/09/19 08:43 Pulse Ox 93 L 06/09/19 08:43 Weight - Most Recent: 180 lb 0.013 oz I&O - Last 24 hours: Intake & Output 0906/09/19 06/09/19 06:59 14:59 22:59 Intake Total 1600 Output Total 800 Balance 800 Lab Results - Last 24 hrs: Laboratory Results - last 24 hr 06/08/19 06/08/19 06/08/19 Range/Units 17:00 17:00 17:00 WBC 6.2 (4.5-11.0) K/uL RBC 3.70 (3.30-5.50) M/uL Hgb 12.3 (12.0-15.0) g/dL Hct 37.0 (36.0-48.0) % MCV 100 H (80-98) fL MCH 33 H (27-31) pg MCHC 33 (32-36) % Plt Count 291 (150-400) K/uL Neut % (Auto) 44 (36-66) % Lymph % (Auto) 44 (24-44) % [place] % (Auto) 8 H (2-6) % Eos % (Auto) 4 (2-4) % Baso % (Auto) 0 (0-1) % Puncture Site ABG pH (7.350-7.450) ABG pCO2 (35.0-42.0) mmHg ABG pO2 (75.0-100.0) mmHg ABG HCO3 (22.0-26.0) mmol/L ABG Total CO2 (21.0-25.0) mmol/L ABG O2 Saturation (95.0-98.0) % ABG O2 Content (15.0-23.0) %vol ABG Base Excess mm/L ABG Hemoglobin (12.0-16.0) g/dL ABG Oxyhemoglobin % ABG Carboxyhemoglobin (0.0-1.6) % ABG Methemoglobin % Silas Test O2 Delivery Device Sodium 141 (140-148) mmol/L Potassium 2.9 L* (3.6-5.2) mmol/L Chloride 104 (100-108) mmol/L Carbon Dioxide 27 (21-32) mmol/L Anion Gap 12.9 (5.0-14.0) mmol/L BUN 4 L D (7-18) mg/dL Creatinine 0.7 (0.6-1.0) mg/dL Est Cr Clr Drug Dosing 101.01 mL/min Estimated GFR (MDRD) > 60 (>60) Glucose 132 H (74-106) mg/dL Calcium 7.7 L (8.5-10.1) mg/dL Total Bilirubin 0.2 (0.2-1.0) mg/dL AST 27 D (15-37) U/L ALT 29 (12-78) U/L Alkaline Phosphatase 107 (46-116) U/L Total Protein 6.0 L (6.4-8.2) g/dL Albumin 2.7 L (3.4-5.0) g/dL Globulin 3.3 (2.3-3.5) g/dL Albumin/Globulin Ratio 0.8 L (1.2-2.2) HCG, Qual Urine Color (YELLOW) Urine Appearance (CLEAR) Urine pH (5.0-8.0) Ur Specific [place] (1.008-1.030) Urine Protein (NEGATIVE) mg/dL Urine Glucose (UA) (NEGATIVE) mg/dL Urine Ketones (NEGATIVE) mg/dL Urine Occult Blood (NEGATIVE) Urine Nitrite (NEGATIVE) Urine Bilirubin (NEGATIVE) Urine Urobilinogen (0.2-1.0) EU/dL Ur Leukocyte Esterase (NEGATIVE) Urine RBC (0-5) Urine WBC (0-5) Ur Epithelial Cells Amorphous Sediment Urine Bacteria Urine Mucus Salicylates 1.8 L (2.0-20.0) mg/dL Urine Opiates Screen (NEGATIVE) Ur Oxycodone Screen (NEGATIVE) Urine Methadone Screen (NEGATIVE) Ur Propoxyphene Screen (NEGATIVE) Acetaminophen 2.3 L (10.0-30.0) ug/mL Ur Barbiturates Screen (NEGATIVE) Ur Tricyclics Screen (NEGATIVE) Ur Phencyclidine Scrn (NEGATIVE) Ur Amphetamine Screen (NEGATIVE) U Methamphetamines Scrn (NEGATIVE) Urine MDMA Screen (NEGATIVE) U Benzodiazepines Scrn (NEGATIVE) U Cocaine Metab Screen (NEGATIVE) U Marijuana (THC) Screen (NEGATIVE) Ethyl Alcohol mg/dL 06/08/19 06/08/19 06/08/19 Range/Units 17:00 17:26 17:26 WBC (4.5-11.0) K/uL RBC (3.30-5.50) M/uL Hgb (12.0-15.0) g/dL Hct (36.0-48.0) % MCV (80-98) fL MCH (27-31) pg MCHC (32-36) % Plt Count (150-400) K/uL Neut % (Auto) (36-66) % Lymph % (Auto) (24-44) % [place] % (Auto) (2-6) % Eos % (Auto) (2-4) % Baso % (Auto) (0-1) % Puncture Site ABG pH (7.350-7.450) ABG pCO2 (35.0-42.0) mmHg ABG pO2 (75.0-100.0) mmHg ABG HCO3 (22.0-26.0) mmol/L ABG Total CO2 (21.0-25.0) mmol/L ABG O2 Saturation (95.0-98.0) % ABG O2 Content (15.0-23.0) %vol ABG Base Excess mm/L ABG Hemoglobin (12.0-16.0) g/dL ABG Oxyhemoglobin % ABG Carboxyhemoglobin (0.0-1.6) % ABG Methemoglobin % Silas Test O2 Delivery Device Sodium (140-148) mmol/L Potassium (3.6-5.2) mmol/L Chloride (100-108) mmol/L Carbon Dioxide (21-32) mmol/L Anion Gap (5.0-14.0) mmol/L BUN (7-18) mg/dL Creatinine (0.6-1.0) mg/dL Est Cr Clr Drug Dosing mL/min Estimated GFR (MDRD) (>60) Glucose (74-106) mg/dL Calcium (8.5-10.1) mg/dL Total Bilirubin (0.2-1.0) mg/dL AST (15-37) U/L ALT (12-78) U/L Alkaline Phosphatase (46-116) U/L Total Protein (6.4-8.2) g/dL Albumin (3.4-5.0) g/dL Globulin (2.3-3.5) g/dL Albumin/Globulin Ratio (1.2-2.2) HCG, Qual Urine Color Yellow (YELLOW) Urine Appearance Clear (CLEAR) Urine pH 7.5 (5.0-8.0) Ur Specific [place] 1.015 (1.008-1.030) Urine Protein Negative (NEGATIVE) mg/dL Urine Glucose (UA) 100 H (NEGATIVE) mg/dL Urine Ketones Negative (NEGATIVE) mg/dL Urine Occult Blood Negative (NEGATIVE) Urine Nitrite Negative (NEGATIVE) Urine Bilirubin Negative (NEGATIVE) Urine Urobilinogen Normal (0.2-1.0) EU/dL Ur Leukocyte Esterase Negative (NEGATIVE) Urine RBC 0-5 (0-5) Urine WBC 0-5 (0-5) Ur Epithelial Cells Rare Amorphous Sediment Few Urine Bacteria Few Urine Mucus Few Salicylates (2.0-20.0) mg/dL Urine Opiates Screen Negative (NEGATIVE) Ur Oxycodone Screen Negative (NEGATIVE) Urine Methadone Screen Negative (NEGATIVE) Ur Propoxyphene Screen Negative (NEGATIVE) Acetaminophen (10.0-30.0) ug/mL Ur Barbiturates Screen Negative (NEGATIVE) Ur Tricyclics Screen Negative (NEGATIVE) Ur Phencyclidine Scrn Negative (NEGATIVE) Ur Amphetamine Screen Negative (NEGATIVE) U Methamphetamines Scrn Negative (NEGATIVE) Urine MDMA Screen Negative (NEGATIVE) U Benzodiazepines Scrn Presumptive positive H (NEGATIVE) U Cocaine Metab Screen Negative (NEGATIVE) U Marijuana (THC) Screen Negative (NEGATIVE) Ethyl Alcohol 226 mg/dL 06/08/19 06/08/19 06/08/19 Range/Units 17:27 18:54 19:00 WBC (4.5-11.0) K/uL RBC (3.30-5.50) M/uL Hgb (12.0-15.0) g/dL Hct (36.0-48.0) % MCV (80-98) fL MCH (27-31) pg MCHC (32-36) % Plt Count (150-400) K/uL Neut % (Auto) (36-66) % Lymph % (Auto) (24-44) % [place] % (Auto) (2-6) % Eos % (Auto) (2-4) % Baso % (Auto) (0-1) % Puncture Site Rt radial Lt radial ABG pH 7.186 L* 7.379 (7.350-7.450) ABG pCO2 66.4 H 39.9 (35.0-42.0) mmHg ABG pO2 333.0 H 110.0 H (75.0-100.0) mmHg ABG HCO3 24.2 23.0 (22.0-26.0) mmol/L ABG Total CO2 22.8 20.8 L (21.0-25.0) mmol/L ABG O2 Saturation 99.1 H 97.7 (95.0-98.0) % ABG O2 Content 18.4 16.6 (15.0-23.0) %vol ABG Base Excess -5.0 -1.4 mm/L ABG Hemoglobin 13.0 12.4 (12.0-16.0) g/dL ABG Oxyhemoglobin 96.4 94.8 % ABG Carboxyhemoglobin 2.1 H 2.2 H (0.0-1.6) % ABG Methemoglobin 0.6 0.8 % Silas Test Passed Passed O2 Delivery Device Resuscitation bag Ventilator Sodium (140-148) mmol/L Potassium (3.6-5.2) mmol/L Chloride (100-108) mmol/L Carbon Dioxide (21-32) mmol/L Anion Gap (5.0-14.0) mmol/L BUN (7-18) mg/dL Creatinine (0.6-1.0) mg/dL Est Cr Clr Drug Dosing mL/min Estimated GFR (MDRD) (>60) Glucose (74-106) mg/dL Calcium (8.5-10.1) mg/dL Total Bilirubin (0.2-1.0) mg/dL AST (15-37) U/L ALT (12-78) U/L Alkaline Phosphatase (46-116) U/L Total Protein (6.4-8.2) g/dL Albumin (3.4-5.0) g/dL Globulin (2.3-3.5) g/dL Albumin/Globulin Ratio (1.2-2.2) HCG, Qual Negative Urine Color (YELLOW) Urine Appearance (CLEAR) Urine pH (5.0-8.0) Ur Specific [place] (1.008-1.030) Urine Protein (NEGATIVE) mg/dL Urine Glucose (UA) (NEGATIVE) mg/dL Urine Ketones (NEGATIVE) mg/dL Urine Occult Blood (NEGATIVE) Urine Nitrite (NEGATIVE) Urine Bilirubin (NEGATIVE) Urine Urobilinogen (0.2-1.0) EU/dL Ur Leukocyte Esterase (NEGATIVE) Urine RBC (0-5) Urine WBC (0-5) Ur Epithelial Cells Amorphous Sediment Urine Bacteria Urine Mucus Salicylates (2.0-20.0) mg/dL Urine Opiates Screen (NEGATIVE) Ur Oxycodone Screen (NEGATIVE) Urine Methadone Screen (NEGATIVE) Ur Propoxyphene Screen (NEGATIVE) Acetaminophen (10.0-30.0) ug/mL Ur Barbiturates Screen (NEGATIVE) Ur Tricyclics Screen (NEGATIVE) Ur Phencyclidine Scrn (NEGATIVE) Ur Amphetamine Screen (NEGATIVE) U Methamphetamines Scrn (NEGATIVE) Urine MDMA Screen (NEGATIVE) U Benzodiazepines Scrn (NEGATIVE) U Cocaine Metab Screen (NEGATIVE) U Marijuana (THC) Screen (NEGATIVE) Ethyl Alcohol mg/dL 06/08/19 06/08/19 06/09/19 Range/Units 20:00 23:00 05:20 WBC (4.5-11.0) K/uL RBC (3.30-5.50) M/uL Hgb (12.0-15.0) g/dL Hct (36.0-48.0) % MCV (80-98) fL MCH (27-31) pg MCHC (32-36) % Plt Count (150-400) K/uL Neut % (Auto) (36-66) % Lymph % (Auto) (24-44) % [place] % (Auto) (2-6) % Eos % (Auto) (2-4) % Baso % (Auto) (0-1) % Puncture Site ABG pH (7.350-7.450) ABG pCO2 (35.0-42.0) mmHg ABG pO2 (75.0-100.0) mmHg ABG HCO3 (22.0-26.0) mmol/L ABG Total CO2 (21.0-25.0) mmol/L ABG O2 Saturation (95.0-98.0) % ABG O2 Content (15.0-23.0) %vol ABG Base Excess mm/L ABG Hemoglobin (12.0-16.0) g/dL ABG Oxyhemoglobin % ABG Carboxyhemoglobin (0.0-1.6) % ABG Methemoglobin % Silas Test O2 Delivery Device Sodium (140-148) mmol/L Potassium 3.7 3.6 (3.6-5.2) mmol/L Chloride (100-108) mmol/L Carbon Dioxide (21-32) mmol/L Anion Gap (5.0-14.0) mmol/L BUN (7-18) mg/dL Creatinine (0.6-1.0) mg/dL Est Cr Clr Drug Dosing mL/min Estimated GFR (MDRD) (>60) Glucose (74-106) mg/dL Calcium (8.5-10.1) mg/dL Total Bilirubin (0.2-1.0) mg/dL AST (15-37) U/L ALT (12-78) U/L Alkaline Phosphatase (46-116) U/L Total Protein (6.4-8.2) g/dL Albumin (3.4-5.0) g/dL Globulin (2.3-3.5) g/dL Albumin/Globulin Ratio (1.2-2.2) HCG, Qual Urine Color (YELLOW) Urine Appearance (CLEAR) Urine pH (5.0-8.0) Ur Specific [place] (1.008-1.030) Urine Protein (NEGATIVE) mg/dL Urine Glucose (UA) (NEGATIVE) mg/dL Urine Ketones (NEGATIVE) mg/dL Urine Occult Blood (NEGATIVE) Urine Nitrite (NEGATIVE) Urine Bilirubin (NEGATIVE) Urine Urobilinogen (0.2-1.0) EU/dL Ur Leukocyte Esterase (NEGATIVE) Urine RBC (0-5) Urine WBC (0-5) Ur Epithelial Cells Amorphous Sediment Urine Bacteria Urine Mucus Salicylates (2.0-20.0) mg/dL Urine Opiates Screen (NEGATIVE) Ur Oxycodone Screen (NEGATIVE) Urine Methadone Screen (NEGATIVE) Ur Propoxyphene Screen (NEGATIVE) Acetaminophen < 2.0 L (10.0-30.0) ug/mL Ur Barbiturates Screen (NEGATIVE) Ur Tricyclics Screen (NEGATIVE) Ur Phencyclidine Scrn (NEGATIVE) Ur Amphetamine Screen (NEGATIVE) U Methamphetamines Scrn (NEGATIVE) Urine MDMA Screen (NEGATIVE) U Benzodiazepines Scrn (NEGATIVE) U Cocaine Metab Screen (NEGATIVE) U Marijuana (THC) Screen (NEGATIVE) Ethyl Alcohol mg/dL Med Orders - Current: Current Medications Albuterol (Proventil Neb Soln) 2.5 mg NEB Q4H PRN PRN Reason: Shortness Of Breath/wheezing Fluoxetine HCl (Prozac) 20 mg PO DAILY [facility] Last Admin: 06/09/19 10:04 Dose: 20 mg Nicotine (Habitrol) 21 mg TRDERM DAILY [facility] Last Admin: 06/09/19 10:42 Dose: 21 mg Trimethobenzamide (Hcl 300 MgPom) 300 mg PO TID PRN PRN Reason: Nausea Ondansetron HCl (Zofran) 4 mg IV Q4H PRN PRN Reason: Nausea/Vomiting Potassium Chloride (Potassium Chloride) 10 meq PO BID [facility] Last Admin: 06/09/19 10:04 Dose: 10 meq Sodium Chloride (Saline Flush) 10 ml FLUSH ASDIRECTED PRN PRN Reason: Keep Vein Open Topiramate (Topamax) 75 mg PO BID [facility] Discontinued Medications Etomidate (Amidate) 24 mg IVPUSH ONETIME ONE Stop: 06/08/19 16:56 Last Admin: 06/08/19 17:32 Dose: 24 mg Sodium Chloride (Normal Saline) 1,000 mls @ 125 mls/hr IV ASDIRECTED [facility] Last Admin: 06/08/19 17:32 Dose: 125 mls/hr Norepinephrine Bitartrate 4 mg (/ Dextrose/Water) 250 mls @ 7.5 mls/hr IV TITRATE [facility]; Protocol Potassium Chloride 20 meq/ (Premix) 100 mls @ 50 mls/hr IV ONETIME ONE Stop: 06/08/19 19:34 Last Admin: 06/09/19 07:36 Dose: Not Given Potassium Chloride 40 meq/ (Premix) 100 mls @ 25 mls/hr IV ONETIME ONE Stop: 06/08/19 22:53 Last Admin: 06/08/19 19:41 Dose: 25 mls/hr Sodium Chloride (Normal Saline) 1,000 mls @ 125 mls/hr IV ASDIRECTED [facility] Last Admin: 06/09/19 03:39 Dose: 125 mls/hr Rocuronium [place] (Zemuron) Confirm Administered Dose 50 mg .ROUTE .STK-MED ONE Stop: 06/08/19 17:04 Last Admin: 06/08/19 17:33 Dose: Not Given Rocuronium [place] (Zemuron) Confirm Administered Dose 50 mg .ROUTE .STK-MED ONE Stop: 06/08/19 17:06 Last Admin: 06/08/19 17:33 Dose: Not Given Rocuronium [place] (Zemuron) 80 mg IV ONETIME ONE Stop: 06/08/19 16:57 Last Admin: 06/08/19 17:33 Dose: 80 mg Sodium Chloride (Saline Flush) 10 ml FLUSH ASDIRECTED PRN PRN Reason: Keep Vein Open - Exam General: Reports: Alert, Oriented, Cooperative Lungs: Reports: Clear to Auscultation, Normal Respiratory Effort Cardiovascular: Reports: Regular Rate, Regular Rhythm, No Murmurs GI/Abdominal Exam: Soft, Non-Tender, No Organomegaly, No Distention Extremities: Non-Tender, No Pedal Edema Psy/Mental Status: Reports: Depressed, Suicidal Ideation Discharge Operative/Procedures - Procedures Performed Intubation Indication: Airway Protection
[2019-06-09] MEDS: Acetaminophen 325 MG Tab PO PRN ×2 (15:45→21:50)
[2019-06-09 20:46] VITALS: BP 152/97
[2019-06-09] MEDS ORDERED: Topiramate 25 MG Tab PO SCH (21:00)
== END 2019-06-09 23:49 | disposition home or self-care (01) | DRG 917 ==
LOC: JP.ED 16:45 → JP.ICU 18:15
PROVIDERS: ADMIT Hospitalist; ATTEND Hospitalist
PROC: 5A1935Z Respiratory Ventilation, Less than 24 Consecutive Hours (ICD-10-PCS; principal; 2019-06-08)
PROC: 0BH18EZ Insertion of Endotracheal Airway into Trachea, Via Natural or Artificial Opening Endoscopic (ICD-10-PCS; 2019-06-08)
DX: T42.4X2A Poisoning by benzodiazepines, intentional self-harm, initial encounter (principal); J96.01 Acute respiratory failure with hypoxia; J96.02 Acute respiratory failure with hypercapnia; E87.2 Acidosis; T44.7X2A Poisoning by beta-adrenoreceptor antagonists, intentional self-harm, initial encounter; F10.129 Alcohol abuse with intoxication, unspecified; F32.9 Major depressive disorder, single episode, unspecified; F41.9 Anxiety disorder, unspecified; E87.6 Hypokalemia; R40.2432 Glasgow coma scale score 3-8, at arrival to emergency department; E78.00 Pure hypercholesterolemia, unspecified; I10 Essential (primary) hypertension; G43.909 Migraine, unspecified, not intractable, without status migrainosus; E66.9 Obesity, unspecified; Z88.2 Allergy status to sulfonamides; Z88.8 Allergy status to other drugs, medicaments and biological substances; Z68.28 Body mass index [BMI] 28.0-28.9, adult
CPT/HCPCS: 31500; 36415; 36600; 71045; 80053; 80305-QW; 81001; 82803; 84132; 84703; 85025; 93005; 94002; 99285-25; A9270-GY; G0480; J3480; J3490; J7030

== ENCOUNTER 2020-07-13 18:43 | Emergency (ER) | payer MEDICAID, OTHER ==
[2020-07-13 18:48] VITALS: BP 151/103; PULSE 118
[2020-07-13] MEDS ORDERED: LORazepam 1 MG Tab PO ONE (18:59)
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
--- NOTE | 2020-07-13 19:52 | CRLCR ---
INDICATION: Dyspnea COMPARISON: None TECHNIQUE: PA and lateral views of the chest were acquired FINDINGS: TUBES AND LINES: None. HEART AND MEDIASTINUM: The heart size is normal. The mediastinal contour appears normal for patient age. LUNGS AND PLEURAL SPACES: The lungs appear normal.There pleural spaces are unremarkable. OSSEOUS STRUCTURES: Shallow/minimal scoliosis IMPRESSION: No evidence of active pulmonary disease. Dictated by Dalton Mcgovern MD @ Jul 13 2020 7:50PM Signed by Dr. Dalton Mcgovern @ Jul 13 2020 7:51PM
== END 2020-07-13 20:15 | disposition home or self-care (01) ==
LOC: JP.ED 18:43
DX: F41.9 Anxiety disorder, unspecified (principal); I10 Essential (primary) hypertension; F32.9 Major depressive disorder, single episode, unspecified; I45.6 Pre-excitation syndrome; Z88.8 Allergy status to other drugs, medicaments and biological substances; Z88.2 Allergy status to sulfonamides; Z79.899 Other long term (current) drug therapy
CPT/HCPCS: 36415; 71046; 85025; 86140; 99285; A9270; 99283

== ENCOUNTER 2020-07-17 18:31 | Emergency (ER) | payer OTHER ==
[2020-07-17 18:41] VITALS: BP 156/99; PULSE 119
[2020-07-17] MEDS ORDERED: Sodium Chloride 0.9% 1,000 ML IV ONE (19:37)
--- NOTE | 2020-07-17 19:44 | EDM.PDOC ---
<ArabellaLilly M - Last Filed: 07/17/20 20:37> ED HPI GENERAL MEDICAL PROBLEM - General Chief Complaint: Neurological Problem Stated Complaint: MEDICAL VIA NORTH Time Seen by Provider: 07/17/20 19:39 Source of Information: Reports: Patient, RN, RN Notes Reviewed, Significant Other History Limitations: Reports: No Limitations - History of Present Illness INITIAL COMMENTS - FREE TEXT/NARRATIVE: Pt to ER with spouse after a witnessed pseudo seizure lating 5 minutes. Pt was doing yard work this evening at the time of the event. Spouse indicated pt did not hit head but fell sideways to ground. 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 Pt is not taking medications for seizures. Pt c/o cramping to BLLE. No other pain. Onset: Today Onset Date: 07/17/20 bilat legs Pain Score (Numeric/FACES): 6 - Related Data Allergies Allergy/AdvReac Type Severity Reaction Status Date / Time clonazepam Allergy Lethargy Verified 07/17/20 19:13 duloxetine [From Cymbalta] Allergy Other Verified 07/17/20 19:13 Sulfa (Sulfonamide Allergy Hives Verified 07/17/20 19:13 Antibiotics) Home Meds: Home Meds FLUoxetine HCl [Prozac] 40 mg PO DAILY 03/17/18 [History] levonorgestreL [Liletta] 06/08/19 [History] Albuterol Sulfate [Albuterol Sulfate Hfa] 2 puff IH Q4H PRN 07/17/20 [History] Past Medical History HEENT History: Reports: Other (See Below) Other HEENT History: Pseudotumor cerebri Cardiovascular History: Reports: Arrhythmia, Blood Clots/VTE/DVT, High Cholesterol, Hypertension, Other (See Below) Other Cardiovascular History: morris parkinson white, tachycardia Gastrointestinal History: Reports: GERD, PUD Other Gastrointestinal History: gastric ulcer states has diarrhea Genitourinary History: Reports: STD 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: acute pelvic inflammatory disease Neurological History: Reports: Concussion, Headaches, Chronic, Migraines, Other (See Below) Other Neuro History: pseudotumor cerebri Psychiatric History: Reports: Addiction, Anxiety, Depression, Psych Hospitalization(s), Suicide Attempt, Suicidal Ideation, Other (See Below) Other Psychiatric History: social phobia Endocrine/Metabolic History: Reports: Obesity/BMI 30+ Hematologic History: Reports: Anticoagulation Therapy Dermatologic History: Reports: Other (See Below) Other Dermatologic History: rash on back and mid chest - Infectious Disease History Infectious Disease History: Reports: Chicken Pox, Influenza - Past Surgical History Head Surgeries/Procedures: Reports: None Cardiovascular Surgical History: Reports: Cardiac Ablation GI Surgical History: Reports: EGD, Other (See Below) Other GI Surgeries/Procedures: peritoneal shunt Female Surgical History: Reports: Cystectomy, Other (See Below) Other Female Surgeries/Procedures: IUD Neurological Surgical History: Reports: Other (See Below) Other Neurological Surgeries/Procedures: lumboperitoneal shunt placed 04/2019 Social & Family History - Family History Cardiac: Reports: Hypertension, Syncope Psychiatric: Reports: Anxiety, Depression Endocrine/Metabolic: Reports: Diabetes, type II Hematologic: Reports: Bleeding Disorder - Tobacco Use Smoking Status *Q: Current Every Day Smoker Years of Tobacco use: 23 Packs/Tins Daily: 0.5 - Caffeine Use Caffeine Use: Reports: Energy Drinks, Soda, Tea Caffeine Use Comment: very rarely - Recreational Drug Use Recreational Drug Use: No - Living Situation & Occupation Living situation: Reports: Occupation: Employed ED ROS GENERAL - Review of Systems Review Of Systems: See Below Constitutional: Reports: Weakness, Fatigue, Decreased Appetite HEENT: Reports: No Symptoms Respiratory: Reports: No Symptoms Cardiovascular: Reports: No Symptoms Endocrine: Reports: No Symptoms GI/Abdominal: Reports: Diarrhea, Decreased Appetite, Nausea, Vomiting : Reports: No Symptoms Musculoskeletal: Reports: Leg Pain (BLLE cald cramping ) Skin: Reports: No Symptoms Neurological: Reports: Dizziness (Post pseudo seizure) Psychiatric: Reports: Anxiety Hematologic/Lymphatic: Reports: No Symptoms Immunologic: Reports: No Symptoms - Physical Exam Exam: See Below Exam Limited By: No Limitations General Appearance: Alert, Anxious, Mild Distress Eye Exam: Bilateral Eye: Normal Inspection, PERRL Head Exam: Normocephalic Neck: Normal Inspection Respiratory/Chest: Lungs Clear Cardiovascular: Regular Rate, Rhythm GI/Abdominal: Normal Bowel Sounds (Female) Exam: Deferred Rectal (Female) Exam: Deferred Neuro Exam (Abbreviated): Alert, Oriented, Memory Loss Recent Events (Pseudo seizure) Extremities: Normal Inspection Psychiatric: Anxious Skin Exam: Warm, Dry, Intact, Normal Color, No Rash Departure - Departure Time of Disposition: 20:38 Disposition: Home, Self-Care 01 Condition: Good Clinical Impression: Seizure-like activity, Dehydration - Discharge Information *PRESCRIPTION DRUG MONITORING PROGRAM REVIEWED*: Not Applicable *COPY OF PRESCRIPTION DRUG MONITORING REPORT IN PATIENT JULIO CÉSAR: Not Applicable Instructions: Dehydration, Adult, [id number] Referrals: PCP,None [Primary Care Provider] - Forms: ED Department Discharge Care Plan Goals: Please get plenty of rest and stay hydrated. Please follow up with your provider in regard to your anxiety. In case of an acute change in medical condition, please return to the ER or contact your provider. Sepsis Event Note (ED) - Evaluation Sepsis Screening Result: No Definite Risk - Problem List & Annotations (1) Seizure-like activity SNOMED Code(s): 323808310 Code(s): R56.9 - UNSPECIFIED CONVULSIONS Status: Acute Priority: High (2) Dehydration SNOMED Code(s): 66716722 Code(s): E86.0 - DEHYDRATION Status: Acute - Problem List Review Problem List Initiated/Reviewed/Updated: Yes - Assessment/Plan Plan: Please get plenty of rest and stay hydrated. Please follow up with your provider in regard to your anxiety. In case of an acute change in medical condition, please return to the ER or contact your provider. <Wagner Marquez - Last Filed: 07/17/20 23:28> Course - Vital Signs Last Recorded V/S: Last Vital Signs Temp 99.1 F 07/17/20 19:09 Pulse 119 H 07/17/20 19:09 Resp 16 07/17/20 19:09 BP 156/99 H 07/17/20 19:09 Pulse Ox 97 07/17/20 19:09 - Orders/Labs/Meds Labs: Laboratory Tests 07/17/20 Range/Units 19:53 Sodium 133 L (140-148) mmol/L Potassium 3.4 L (3.6-5.2) mmol/L Chloride 96 L (100-108) mmol/L Carbon Dioxide 26 (21-32) mmol/L Anion Gap 14.4 H (5.0-14.0) mmol/L BUN 4 L (7-18) mg/dL Creatinine 1.0 (0.6-1.0) mg/dL Est Cr Clr Drug Dosing 59.15 mL/min Estimated GFR (MDRD) > 60 (>60) Glucose 92 (74-106) mg/dL Calcium 9.2 D (8.5-10.1) mg/dL Magnesium 1.9 D (1.8-2.4) mg/dL Meds: Medications Discontinued Medications Generic Name Dose Route Start Last Admin Trade Name Michaelq PRN Reason Stop Dose Admin Sodium Chloride 1,000 mls @ 999 mls/hr 07/17/20 19:37 07/17/20 19:54 Normal Saline IV 07/17/20 20:37 999 mls/hr .BOLUS ONE Administration Lorazepam 0.5 mg 07/17/20 19:55 07/17/20 20:05 Ativan IVPUSH 07/17/20 19:56 0.5 mg ONETIME ONE Administration - Re-Assessments/Exams Free Text/Narrative Re-Assessment/Exam: 07/17/20 23:27 Work-up was negative, labs were reassuring. Patient admitted to having a very significant amount of stress in her life right now including a divorce where her significant other is trying to take half of her care home and she is also exposed to COVID patients while at work. She has had a history of pseudoseizure-like activity with stress in the past. She was given 1 dose of IV Ativan while here but no additional medication on discharge. She was encouraged to follow-up with her primary provider. Departure - Departure Time of Disposition: 20:56 Sepsis Event Note (ED) - Focused Exam Vital Signs: Vital Signs Temp Pulse Resp BP Pulse Ox 07/17/20 19:09 99.1 F 119 H 16 156/99 H 97 07/17/20 18:36 99.1 F 119 H 16 156/99 H 97 Attestation - Student - Attestation Statement Attestation Statement: I personally performed or re-performed the physical examination and medical decision making. I have verified all student documentation or findings, including history, physical exam and/or medical decision making.
[2020-07-17] MEDS ORDERED: LORazepam 2 MG/ML SDV IVPUSH ONE (19:55)
== END 2020-07-17 20:56 | disposition home or self-care (01) ==
LOC: JP.ED 18:31
DX: R25.9 Unspecified abnormal involuntary movements (principal); E86.0 Dehydration; I45.6 Pre-excitation syndrome; F41.9 Anxiety disorder, unspecified; F32.9 Major depressive disorder, single episode, unspecified; E66.9 Obesity, unspecified; Z68.31 Body mass index [BMI] 31.0-31.9, adult; Z88.8 Allergy status to other drugs, medicaments and biological substances; Z88.2 Allergy status to sulfonamides; Z79.899 Other long term (current) drug therapy
CPT/HCPCS: 36415; 80048; 83735; 96374; 99285; J2060; J7040

== ENCOUNTER 2020-09-24 03:18 | Emergency (ER) | payer OTHER ==
--- NOTE | 2020-09-24 03:46 | EDM.PDOCBH ---
ED HPI GENERAL MEDICAL PROBLEM - General Chief Complaint: Behavioral/Psych Stated Complaint: MEDICAL VIA NORTH Time Seen by Provider: 09/24/20 03:35 Source of Information: Reports: Patient History Limitations: Reports: No Limitations - History of Present Illness INITIAL COMMENTS - FREE TEXT/NARRATIVE: Patient presents by ambulance because of severe anxiety, elevated heart rate, stomach pain with vomiting, headache. She has been drinking vodka continuously for the last 3 days in relation to multiple life stressors. On August 29, her mother was undergoing an elective coiling procedure for a cerebral aneurysm. From her description, the aneurysm was perforated or somehow ruptured during the procedure. She had a severe intracerebral hemorrhage, was taken off life suppo rt, and slowly over the ensuing 5 days. The patient stayed in her mother's hospital room in [place] as she . Since then, she has been cleaning out her mother's home and disposing of things as part of her estate. She recently discovered that her boyfriend has been cheating on her, including while she was in the hospital with her mother as she was dying. She began drinking vodka continuously 3 days ago. She has not been taking her prescribed medications consistently. Her sleep has been off, her anxiety level is incredibly high and she has been crying so much that she has a very severe headache. She did not know what else to do and called an ambulance tonight. She has a prior history of active alcoholism although states she has been sober for 14 months. One of her big fears with stopping drinking is that she will go through withdrawal, something she does not enjoy. She has nausea with multiple small emeses although she says this is her "anxiety puke, not necessarily something related to stomach pain or irritation. She feels dehydrated and generally awful. Duration: Week(s):, Getting Worse Location: Reports: Generalized Quality: Reports: Ache Severity: Severe Improves with: Reports: None Worsens with: Reports: Eating, Other (Anxiety) Associated Symptoms: Reports: Headaches, Loss of Appetite, Nausea/Vomiting, Weakness. Denies: Fever/Chills, Rash, Shortness of Breath headache Pain Score (Numeric/FACES): 8 - Related Data Allergies Allergy/AdvReac Type Severity Reaction Status Date / Time clonazepam Allergy Lethargy Verified 09/24/20 03:24 duloxetine [From Cymbalta] Allergy Other Verified 09/24/20 03:24 Sulfa (Sulfonamide Allergy Hives Verified 09/24/20 03:24 Antibiotics) Home Meds: Home Meds levonorgestreL [Liletta] 1 applic VAG Q60M 06/08/19 [History] Albuterol Sulfate [Albuterol Sulfate Hfa] 2 puff IH Q4H PRN 07/17/20 [History] Metoprolol Succinate 25 mg PO DAILY 09/24/20 [History] Sertraline [Zoloft] 100 mg PO DAILY 09/24/20 [History] traZODone HCl [Trazodone HCl] 50 mg PO BEDTIME 09/24/20 [History] Past Medical History HEENT History: Reports: Other (See Below) Other HEENT History: Pseudotumor cerebri Cardiovascular History: Reports: Arrhythmia, Blood Clots/VTE/DVT, High Cholesterol, Hypertension, Other (See Below) Other Cardiovascular History: morris parkinson white, tachycardia Gastrointestinal History: Reports: GERD, PUD Other Gastrointestinal History: gastric ulcer states has diarrhea Genitourinary History: Reports: STD [employer]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 pelvic inflammatory disease Neurological History: Reports: Concussion, Headaches, Chronic, Migraines, Other (See Below) Other Neuro History: pseudotumor cerebri Psychiatric History: Reports: Addiction, Anxiety, Depression, Psych Hospitalization(s), Suicide Attempt, Suicidal Ideation, Other (See Below) Other Psychiatric History: social phobia Endocrine/Metabolic History: Reports: Obesity/BMI 30+ Hematologic History: Reports: Anticoagulation Therapy Dermatologic History: Reports: Other (See Below) Other Dermatologic History: rash on back and mid chest - Infectious Disease History Infectious Disease History: Reports: Chicken Pox, Influenza - Past Surgical History Head Surgeries/Procedures: Reports: None Cardiovascular Surgical History: Reports: Cardiac Ablation GI Surgical History: Reports: EGD, Other (See Below) Other GI Surgeries/Procedures: peritoneal shunt Female Surgical History: Reports: Cystectomy, Other (See Below) Other Female Surgeries/Procedures: IUD Neurological Surgical History: Reports: Other (See Below) Other Neurological Surgeries/Procedures: lumboperitoneal shunt placed 04/2019 Social & Family History - Family History Cardiac: Reports: Hypertension, Syncope Psychiatric: Reports: Anxiety, Depression Endocrine/Metabolic: Reports: Diabetes, type II Hematologic: Reports: Bleeding Disorder - Caffeine Use Caffeine Use: Reports: Energy Drinks, Soda, Tea Caffeine Use Comment: very rarely - Living Situation & Occupation Living situation: Reports: Occupation: Employed ED ROS GENERAL - Review of Systems Review Of Systems: See Below Constitutional: Reports: Malaise, Weakness HEENT: Reports: No Symptoms Respiratory: Reports: No Symptoms Cardiovascular: Reports: Blood Pressure Problem, Palpitations Endocrine: Reports: Fatigue GI/Abdominal: Reports: Decreased Appetite, Nausea, Vomiting. Denies: Black Stool, Bloody Stool : Reports: No Symptoms Musculoskeletal: Reports: Muscle Stiffness, Other (Cramps while hyperventilating, carpopedal spasms.) Neurological: Reports: Headache Psychiatric: Reports: Anxiety. Denies: Hallucinations, Homicidal Ideation, Suicidal Ideation ED EXAM, BEHAVIORAL HEALTH - Physical Exam Exam: See Below Text/Narrative:: This is an uncomfortable sounding and appearing female interviewed in room 8. She is tearful during the interview and had 2 small emeses while we were talking. Exam Limited By: Physical Impairment General Appearance: Anxious, Severe Distress Head: Atraumatic Neck: Supple Respiratory/Chest: Lungs Clear Cardiovascular: Tachycardia GI/Abdominal: Soft COURSE, BEHAVIORAL HEALTH COMP - Course Vital Signs: Last Vital Signs Temp 37.0 C 09/24/20 03:26 Pulse 95 09/24/20 04:13 Resp 20 09/24/20 03:26 BP 130/88 09/24/20 04:13 Pulse Ox 93 L 09/24/20 03:26 Orders, Labs, Meds: Active Orders 24 hr Category Date Time Status Sodium Chloride 0.9% [Saline Flush] Med 09/24/20 03:56 Active 10 ml FLUSH ASDIRECTED PRN Saline Lock Insert [OM.PC] Routine Oth 09/24/20 03:56 Ordered Medication Orders Sodium Chloride (Saline Flush) 10 ml FLUSH ASDIRECTED PRN PRN Reason: Keep Vein Open Last Admin: 09/24/20 04:19 Dose: 10 ml Documented by: ISABELLE Laboratory Tests 09/24/20 09/24/20 09/24/20 Range/Units 04:00 04:00 04:00 WBC 5.2 (4.5-11.0) K/uL RBC 4.88 (3.30-5.50) M/uL Hgb 16.4 H (12.0-15.0) g/dL Hct 48.8 H (36.0-48.0) % MCV 100 H (80-98) fL MCH 34 H (27-31) pg MCHC 34 (32-36) % Plt Count 370 (150-400) K/uL Neut % (Auto) 54 (36-66) % Lymph % (Auto) 27 (24-44) % [place] % (Auto) 17 H (2-6) % Eos % (Auto) 1 L (2-4) % Baso % (Auto) 2 H (0-1) % Sodium 140 (140-148) mmol/L Potassium 3.7 (3.6-5.2) mmol/L Chloride 101 (100-108) mmol/L Carbon Dioxide 20 L (21-32) mmol/L Anion Gap 22.7 H (5.0-14.0) mmol/L BUN 5 L (7-18) mg/dL Creatinine 0.9 (0.6-1.0) mg/dL Est Cr Clr Drug Dosing 65.72 mL/min Estimated GFR (MDRD) > 60 (>60) Glucose 117 H (74-106) mg/dL Calcium 8.5 (8.5-10.1) mg/dL Total Bilirubin 0.4 D (0.2-1.0) mg/dL AST 215 H D (15-37) U/L ALT 115 H (12-78) U/L Alkaline Phosphatase 134 H (46-116) U/L Total Protein 8.1 (6.4-8.2) g/dL Albumin 3.7 (3.4-5.0) g/dL Globulin 4.4 H (2.3-3.5) g/dL Albumin/Globulin Ratio 0.8 L (1.2-2.2) Ethyl Alcohol 272 mg/dL Medications Generic Name Dose Route Start Last Admin Trade Name Freq PRN Reason Stop Dose Admin Sodium Chloride 10 ml 09/24/20 03:56 09/24/20 04:19 Saline Flush FLUSH 10 ml ASDIRECTED PRN Administration Keep Vein Open Discontinued Medications Generic Name Dose Route Start Last Admin Trade Name Freq PRN Reason Stop Dose Admin Famotidine 20 mg 09/24/20 03:59 09/24/20 04:10 Pepcid IVPUSH 09/24/20 04:00 20 mg ONETIME ONE Administration Sodium Chloride 1,000 mls @ 999 mls/hr 09/24/20 03:56 09/24/20 04:09 Normal Saline IV 09/24/20 04:56 999 mls/hr .BOLUS ONE Administration Metoprolol Tartrate 5 mg 09/24/20 03:57 09/24/20 04:13 Lopressor IVPUSH 09/24/20 03:58 2.5 mg ONETIME ONE Administration Phenobarbital 130 mg 09/24/20 03:57 09/24/20 04:17 Phenobarbital Sodium IVPUSH 09/24/20 03:58 130 mg ONETIME ONE Administration Re-Assessment/Re-Exam: Initially, we were going to try oral medication for her current symptoms but with the repeated episodes of emeses, medication will be given IV. She will receive metoprolol 5 mg, famotidine 20 mg, phenobarbital 130 mg, all as IV doses. A liter of normal saline will be run by rapid infusion. Depending on response in 45 minutes or so, she may need an additional dose of phenobarbital. That is being given to load her system and give her a self tapering medication that would help to mitigate withdrawal. I returned at 0509 hrs. to recheck on the patient. She was now resting comfortably and sleeping lightly. Blood alcohol is 0.27. Her liver enzymes are elevated several times normal. No more vomiting or nausea. Will reassess again and hopefully she will be ready for discharge in the next hour or so. At 0615, the patient was standing on her own and ready for discharge. Discussed not drinking alcohol. Recommend re-starting medications. Discussed the grief process and its time course. She did have another episode of dry heaves and was given a rapid dissolving tablet of Zofran. A friend is coming to pick her up. Departure - Departure Time of Disposition: 06:26 Disposition: Home, Self-Care 01 Clinical Impression: Anxiety, Tachycardia, Acute reaction to situational stress, Abnormal liver enzymes Alcohol intoxication Qualifiers: Complication of substance-induced condition: uncomplicated Qualified Code(s): F10.920 - Alcohol use, unspecified with intoxication, uncomplicated - Discharge Information Referrals: Alex Cordon Sr, MD [Primary Care Provider] - Forms: ED Department Discharge Additional Instructions: Recommend no alcohol. Restart your previous medications. Grief from of a loved one is normal and should diminish with time. Sepsis Event Note (ED) - Evaluation Sepsis Screening Result: No Definite Risk - Focused Exam Vital Signs: Vital Signs Temp Pulse Pulse Resp BP BP Pulse Ox 09/24/20 04:13 95 130/88 09/24/20 03:26 37.0 C 125 H 20 166/110 H 93 L - My Orders Last 24 Hours: My Active Orders 09/24/20 03:56 Sodium Chloride 0.9% [Saline Flush] 10 ml FLUSH ASDIRECTED PRN Saline Lock Insert [OM.PC] Routine - Assessment/Plan Last 24 Hours: My Active Orders 09/24/20 03:56 Sodium Chloride 0.9% [Saline Flush] 10 ml FLUSH ASDIRECTED PRN Saline Lock Insert [OM.PC] Routine
[2020-09-24] MEDS ORDERED: Sodium Chloride 0.9% 1,000 ML IV ONE (03:56)
[2020-09-24] MEDS ORDERED: Sodium Chloride 0.9% 10 ML Syringe FLUSH PRN (03:56)
[2020-09-24] MEDS ORDERED: Metoprolol Tartrate 5 MG/5 ML SDV IVPUSH ONE (03:57)
[2020-09-24] MEDS ORDERED: PHENobarbital Sodium 65 MG/ML SDV IVPUSH ONE (03:57)
[2020-09-24] MEDS ORDERED: Famotidine 20 MG/2 ML SDV IVPUSH ONE (03:59)
[2020-09-24 06:04] VITALS: BP 130/88; PULSE 95
[2020-09-24] MEDS ORDERED: Ondansetron 4 MG Tab.DIS PO ONE (06:33)
== END 2020-09-24 06:39 | disposition home or self-care (01) ==
LOC: JP.ED 03:18
DX: F41.9 Anxiety disorder, unspecified (principal); F43.0 Acute stress reaction; F10.120 Alcohol abuse with intoxication, uncomplicated; R74.8 Abnormal levels of other serum enzymes; I10 Essential (primary) hypertension; F32.9 Major depressive disorder, single episode, unspecified; E66.9 Obesity, unspecified; Z68.29 Body mass index [BMI] 29.0-29.9, adult; Y90.8 Blood alcohol level of 240 mg/100 ml or more; Z79.01 Long term (current) use of anticoagulants; Z79.899 Other long term (current) drug therapy; Z88.8 Allergy status to other drugs, medicaments and biological substances; Z88.2 Allergy status to sulfonamides
CPT/HCPCS: 36415; 80053; 80307; 85025; 96374; 96375; 99284; A9270; J2560; J3490; J7030